=== PATIENT | female | born 1995 | race Caucasian/White ===

== ENCOUNTER 2016-07-25 11:24 | Emergency (ER) | payer BC ==
--- NOTE | 2016-07-25 11:47 | EDM.PDOC ---
ED HPI GENERAL MEDICAL PROBLEM - General Chief Complaint: General Stated Complaint: ABDOMINAL PAIN, AND DIZZINESS Time Seen by Provider: 07/25/16 11:46 Source of Information: Reports: Patient History Limitations: Reports: No Limitations - History of Present Illness INITIAL COMMENTS - FREE TEXT/NARRATIVE: History of present illness: [20-year-old female coming in complaining of dizziness, abdominal cramping. Patient indicates that she is approximately 12 weeks and has had no workup. Patient states she has more discharge but has no bleeding.] Review of systems: As per history of present illness and below otherwise all systems reviewed and negative. Past medical history: As per history of present illness and as reviewed below otherwise noncontributory. Surgical history: As per history of present illness and as reviewed below otherwise noncontributory. Social history: No reported history of drug or alcohol abuse. Family history: As per history of present illness and as reviewed below otherwise noncontributory. Physical exam: HEENT: Atraumatic, normocephalic, pupils reactive, negative for conjunctival pallor or scleral icterus, mucous membranes moist, throat clear, neck supple, nontender, trachea midline. Lungs: Clear to auscultation, breath sounds equal bilaterally, chest nontender. Heart: S1S2, regular, negative for clicks, rubs, or JVD. Abdomen: Soft, nondistended, nontender. Negative for masses or hepatosplenomegaly. Negative for costovertebral tenderness. Pelvis: Stable nontender. Genitourinary: Deferred. Rectal: Deferred. Extremities: Atraumatic, negative for cords or calf pain. Neurovascular unremarkable. Neuro: Awake, alert, oriented. Cranial nerves II through XII unremarkable. Cerebellum unremarkable. Motor and sensory unremarkable throughout. Exam nonfocal. Patient's Global assessment is benign save as noted in the history of present illness Diagnostics: [] Therapeutics: [] Impression: [First trimester , dizziness] Plan: [Rest follow up with [employer]ERCIAL TE[employer]ER] Definitive disposition and diagnosis as appropriate pending reevaluation and review of above. Lower Pelvic Pain Score (Numeric/FACES): 8 - Related Data Allergies Allergy/AdvReac Type Severity Reaction Status Date / Time No Known Allergies Allergy Verified 07/25/16 11:34 Home Meds: Home Meds . [No Known Home Meds] 01/23/16 [History] Past Medical History - Past Health History Medical/Surgical History: Denies Medical/Surgical History Neurological History: Reports: Migraines Other Neuro History: Pt states hx migraines x1 year - Infectious Disease History Infectious Disease History: Reports: Chicken Pox, Shingles - Past Surgical History HEENT Surgical History: Reports: Tonsillectomy Social & Family History - Family History Family Medical History: Noncontributory - Tobacco Use Smoking Status *Q: Never Smoker - Caffeine Use Caffeine Use: Reports: None - Recreational Drug Use Recreational Drug Use: Yes Drug Use in Last 12 Months: Yes Recreational Drug Type: Reports: Other (see below) Other Recreational Drug Type: canabis for migraines at night Recreational Drug Use Frequency: Daily ED ROS GENERAL - Review of Systems Review Of Systems: See Below (History of present illness) ED EXAM, GENERAL - Physical Exam Exam: See Below (History of present illness) Course - Vital Signs Last Recorded V/S: Last Vital Signs Temp 36.4 C 07/25/16 11:31 Pulse 97 07/25/16 11:31 Resp 16 07/25/16 11:31 BP 115/70 07/25/16 11:31 Pulse Ox 97 07/25/16 11:31 - Orders/Labs/Meds Orders: Active Orders 24 hr Category Date Time Status OB 1st Tri Sgl 1st Gest [US] Stat Exams 07/25/16 11:47 Taken Labs: Laboratory Tests 07/25/16 07/25/16 07/25/16 Range/Units 11:47 12:00 12:00 WBC 6.71 (4.0-11.0) K/uL RBC 4.29 L (4.30-5.90) M/uL Hgb 12.1 (12.0-16.0) g/dL Hct 36.4 (36.0-46.0) % MCV 84.8 (80.0-98.0) fL MCH 28.2 (27.0-32.0) pg MCHC 33.2 (31.0-37.0) g/dL RDW Std Deviation 40.0 (28.0-62.0) fl RDW Coeff of Toby 13 (11.0-15.0) % Plt Count 219 (150-400) K/uL MPV 10.20 (7.40-12.00) fL Neut % (Auto) 66.4 (48.0-80.0) % Lymph % (Auto) 21.9 (16.0-40.0) % [place] % (Auto) 10.6 (0.0-15.0) % Eos % (Auto) 1.0 (0.0-7.0) % Baso % (Auto) 0.1 (0.0-1.5) % Neut # (Auto) 4.5 (1.4-5.7) K/uL Lymph # (Auto) 1.5 (0.6-2.4) K/uL [place] # (Auto) 0.7 (0.0-0.8) K/uL Eos # (Auto) 0.1 (0.0-0.7) K/uL Baso # (Auto) 0.0 (0.0-0.1) K/uL Nucleated RBC % 0.0 /100WBC Nucleated RBCs # 0 K/uL HCG, Quant 713779.6 mIU/mL Urine Color Urine Appearance Urine pH (5.0-8.0) Ur Specific [place] (1.001-1.035) Urine Protein (NEGATIVE) mg/dL Urine Glucose (UA) (NEGATIVE) mg/dL Urine Ketones (NEGATIVE) mg/dL Urine Occult Blood (NEGATIVE) Urine Nitrite (NEGATIVE) Urine Bilirubin (NEGATIVE) Urine Urobilinogen (<2.0) EU/dL Ur Leukocyte Esterase (NEGATIVE) Urine RBC (0-2/HPF) Urine WBC (0-5/HPF) Ur Epithelial Cells (NONE-FEW) Urine Bacteria (NEGATIVE) Blood Type B POSITIVE 07/25/16 Range/Units 12:00 WBC (4.0-11.0) K/uL RBC (4.30-5.90) M/uL Hgb (12.0-16.0) g/dL Hct (36.0-46.0) % MCV (80.0-98.0) fL MCH (27.0-32.0) pg MCHC (31.0-37.0) g/dL RDW Std Deviation (28.0-62.0) fl RDW Coeff of Toby (11.0-15.0) % Plt Count (150-400) K/uL MPV (7.40-12.00) fL Neut % (Auto) (48.0-80.0) % Lymph % (Auto) (16.0-40.0) % [place] % (Auto) (0.0-15.0) % Eos % (Auto) (0.0-7.0) % Baso % (Auto) (0.0-1.5) % Neut # (Auto) (1.4-5.7) K/uL Lymph # (Auto) (0.6-2.4) K/uL [place] # (Auto) (0.0-0.8) K/uL Eos # (Auto) (0.0-0.7) K/uL Baso # (Auto) (0.0-0.1) K/uL Nucleated RBC % /100WBC Nucleated RBCs # K/uL HCG, Quant mIU/mL Urine Color YELLOW Urine Appearance CLEAR Urine pH 6.0 (5.0-8.0) Ur Specific [place] 1.015 (1.001-1.035) Urine Protein NEGATIVE (NEGATIVE) mg/dL Urine Glucose (UA) NEGATIVE (NEGATIVE) mg/dL Urine Ketones NEGATIVE (NEGATIVE) mg/dL Urine Occult Blood NEGATIVE (NEGATIVE) Urine Nitrite NEGATIVE (NEGATIVE) Urine Bilirubin NEGATIVE (NEGATIVE) Urine Urobilinogen 0.2 (<2.0) EU/dL Ur Leukocyte Esterase NEGATIVE (NEGATIVE) Urine RBC 0-2 (0-2/HPF) Urine WBC 02 (0-5/HPF) Ur Epithelial Cells MODERATE (NONE-FEW) Urine Bacteria FEW (NEGATIVE) Blood Type Meds: Medications Discontinued Medications Generic Name Dose Route Start Last Admin Trade Name Freq PRN Reason Stop Dose Admin Sodium Chloride 1,000 mls @ 999 mls/hr 07/25/16 11:49 07/25/16 11:56 Normal Saline IV 07/25/16 12:49 999 mls/hr STAT ONE Administration Departure - Departure Time of Disposition: 13:20 Disposition: Home, Self-Care 01 Condition: Good Clinical Impression: Dizziness - Discharge Information Forms: ED Department Discharge Additional Instructions: The following information is given to patients seen in the emergency department who are being discharged to home. This information is to outline your options for follow-up care. We provide all patients seen in our emergency department with a follow-up referral. The need for follow-up, as well as the timing and circumstances, are variable depending upon the specifics of your emergency department visit. If you don't have a primary care physician on staff, we will provide you with a referral. We always advise you to contact your personal physician following an emergency department visit to inform them of the circumstance of the visit and for follow-up with them and/or the need for any referrals to a consulting specialist. The emergency department will also refer you to a specialist when appropriate. This referral assures that you have the opportunity for follow-up care with a specialist. All of these measure are taken in an effort to provide you with optimal care, which includes your follow-up. Under all circumstances we always encourage you to contact your private physician who remains a resource for coordinating your care. When calling for follow-up care, please make the office aware that this follow-up is from your recent emergency room visit. If for any reason you are refused follow-up, please contact the [facility] Emergency Department at and asked to speak to the emergency department charge nurse. Take it easy until further evaluation by [employer]ER[employer] TE[employer]ER Return to ED as needed as discussed - My Orders Last 24 Hours: My Active Orders 07/25/16 11:47 OB 1st Tri Sgl 1st Gest [US] Stat - Assessment/Plan Last 24 Hours: My Active Orders 07/25/16 11:47 OB 1st Tri Sgl 1st Gest [US] Stat
[2016-07-25] MEDS ORDERED: Sodium Chloride 0.9% 1,000 ML IV ONE (11:49)
[2016-07-25 13:36] VITALS: BP 127/70
--- NOTE | 2016-07-26 13:25 | US ---
EXAM DATE: 07/25/16 PATIENT'S AGE: 20 Patient: RENETTA BORREGO Facility: [place], [place] Site . Site : 1995 Study: US OB Pelvis [id number] 12:21:47 PM Ordering Physician: Doctor Salmeron Final Report: INDICATION: 1st trimester with cramping. TECHNIQUE: Ultrasound OB pelvis transabdominal. Real-time wade-scale imaging of the pelvis was performed. COMPARISON: None FINDINGS: Sonographic imaging demonstrates a single living intrauterine gestation. The embryo demonstrates a regular cardiac rate measuring 170 beats per minute. The embryo`s crown rump length measurement of 2.64 cm corresponds to a gestational age of 8 weeks 6 days with a sonographic due date of February 28, 2017. There is a normal appearing yolk sac. There are no gross abnormalities noted within the embryo at this early state of development. The placenta has not yet developed. There is no sign of perigestational hemorrhage. The ovaries are of normal size. There are no suspicious fluid collections noted in the cul-de-sac. IMPRESSION: Single viable intrauterine . No abnormalities seen. Dictated by Danial Baron MD @ 07/25/2016 1:11:52 PM Dictated by: Danial Baron MD @ 07/25/2016 13:11:59 (Electronic Signature) Report Signed by Proxy. RACHID
== END 2016-07-25 13:32 | disposition home or self-care (01) ==
LOC: MW.ED 11:24
DX: O99.89 Other specified diseases and conditions complicating pregnancy, childbirth and the puerperium (principal); R42 Dizziness and giddiness; R10.2 Pelvic and perineal pain; Z3A.12 12 weeks gestation of pregnancy; Z98.890 Other specified postprocedural states
CPT/HCPCS: 36415; 76801; 81001; 84702; 85025; 86900; 86901; 96360; 99284; J7040; 99283

== ENCOUNTER 2017-03-04 01:17 | Inpatient (IN) | payer BC ==
[2017-03-04] MEDS ORDERED: Carboprost Tromethamine 250 MCG/1 ML Amp IM PRN (01:41)
[2017-03-04] MEDS ORDERED: Butorphanol 1 MG/ML SDV IVPUSH PRN (01:41)
[2017-03-04] MEDS ORDERED: Methylergonovine 0.2 MG/1 ML Amp IM PRN (01:41)
[2017-03-04] MEDS ORDERED: Nalbuphine 10 MG/1 ML Vial IVPUSH PRN ×2 (01:41→20:21)
[2017-03-04] MEDS ORDERED: Misoprostol 200 MCG Tab PO PRN (01:41)
[2017-03-04] MEDS ORDERED: Sodium Chloride 0.9% 2.5 ML Syringe FLUSH PRN (01:41)
[2017-03-04] MEDS ORDERED: Sodium Chloride 0.9% 10 ML Syringe FLUSH PRN (01:41)
[2017-03-04] MEDS ORDERED: Water For Irrigation,Sterile 1,000 ML Container IRR PRN (01:41)
[2017-03-04] MEDS ORDERED: Terbutaline 1 MG/ML SDV SUBCUT PRN (01:41)
[2017-03-04] MEDS ORDERED: Lidocaine 1% 50 ML MDV INJECT PRN (01:41)
[2017-03-04] MEDS ORDERED: Oxytocin/0.9 % Sodium Chloride 30 UNIT/500 ML BAG IV SCH (01:45)
[2017-03-04] MEDS ORDERED: Misoprostol 25 MCG (1/4 of 100 MCG) Tab VAG SCH (02:30)
[2017-03-04] MEDS ORDERED: Misoprostol 25 MCG (1/4 of 100 MCG) Tab PO SCH (02:30)
[2017-03-04] MEDS ORDERED: Ropivacaine 0.2% 2 MG/ML 20 ML SDV ONE (04:58)
[2017-03-04] MEDS ORDERED: Ropivacaine 0 ML ONE (04:59)
--- NOTE | 2017-03-04 05:19 | PCM.LDHP ---
L&D History of Present Illness - General Date of Service: 03/04/17 Admit Problem/Dx: Patient Status Order with Admit Dx/Problem 03/04/17 01:41 Patient Status [ADT] Routine Admission Diagnosis/Problem Admission Diagnosis/Problem Source of Information: Patient History Limitations: Reports: No Limitations - History of Present Illness Improves with: Reports: None Worsens with: Reports: None Associated Symptoms: Reports: N - Related Data Allergies/Adverse Reactions: Allergies Allergy/AdvReac Type Severity Reaction Status Date / Time No Known Allergies Allergy Verified 03/04/17 01:40 Home Medications: Home Meds PNV95/Ferrous Fumarate/FA [ Tablet] 03/04/17 [History] Past Medical History - Past Health History Medical/Surgical History: Denies Medical/Surgical History HEENT History: Reports: None Gastrointestinal History: Reports: Other (See Below) Other Gastrointestinal History: acid reflux [employer] History: Reports: Neurological History: Reports: Migraines Other Neuro History: Pt states hx migraines x1 year - Infectious Disease History Infectious Disease History: Reports: Chicken Pox, Shingles - Past Surgical History HEENT Surgical History: Reports: Oral Surgery, Tonsillectomy Other HEENT Surgeries/Procedures: wisdom teeth extraction GI Surgical History: Reports: None Neurological Surgical History: Reports: None Social & Family History - Family History Family Medical History: Noncontributory OBGYN: Reports: Neurological: Reports: CVA Oncologic: Reports: Ovarian - Tobacco Use Smoking Status *Q: Never Smoker - Caffeine Use Caffeine Use: Reports: None - Recreational Drug Use Recreational Drug Use: No Drug Use in Last 12 Months: Yes Recreational Drug Type: Reports: Other (see below) Other Recreational Drug Type: canabis for migraines at night Recreational Drug Use Frequency: Daily H&P Review of Systems - Review of Systems: Review Of Systems: See Below General: Reports: No Symptoms HEENT: Reports: No Symptoms Pulmonary: Reports: No Symptoms Cardiovascular: Reports: No Symptoms Gastrointestinal: Reports: No Symptoms Genitourinary: Reports: No Symptoms Musculoskeletal: Reports: No Symptoms Skin: Reports: No Symptoms Psychiatric: Reports: No Symptoms Neurological: Reports: No Symptoms Hematologic/Lymphatic: Reports: No Symptoms Immunologic: Reports: No Symptoms L&D Exam - Exam Exam: See Below - Vital Signs Weight: 69.853 kg - OB Specific Fundal Height In cm: 36 Contraction Intensity: Mild Heart Tones: Present Presentation: Vertex - Del Cid Score Del Cid Score Cervix Position: Anterior Del Cid Score Consistency: Soft Del Cid Score Effacement: 51-70% Del Cid Score Dilation: 1-2 cm Del Cid Score 's Station: -1 ,0 Del Cid Score Total: 9 - Exam General: Alert, Oriented HEENT: PERRLA, Conjunctiva Clear, EACs Clear, EOMI, Hearing Intact, Mucosa Moist & [place], Nares Patent, Normal Nasal Septum, Posterior Pharynx Clear, TMs Clear Neck: Supple, Trachea Midline Lungs: Clear to Auscultation, Normal Respiratory Effort Cardiovascular: Regular Rate, Regular Rhythm GI/Abdominal Exam: Normal Bowel Sounds, Soft, Non-Tender, No Organomegaly, No Distention, No Abnormal Bruit, No Mass, Pelvis Stable Rectal Exam: Normal Exam, Normal Rectal Tone Genitourinary: Normal external exam, Normal bimanual exam, Normal speculum exam Back Exam: Normal Inspection, Full Range of Motion Extremities: Normal Inspection, Normal Range of Motion, Non-Tender, No Pedal Edema, Normal Capillary Refill Skin: Warm, Dry, Intact Neurological: Cranial Nerves Intact, Reflexes Equal Bilateral Psychiatric: Alert, Normal Affect, Normal Mood - Patient Data Lab Results Last 24 hrs: Laboratory Results - last 24 hr 03/04/17 03/04/17 Range/Units 01:56 01:56 WBC 9.07 (4.0-11.0) K/uL RBC 4.08 L (4.30-5.90) M/uL Hgb 11.5 L (12.0-16.0) g/dL Hct 34.9 L (36.0-46.0) % MCV 85.5 (80.0-98.0) fL MCH 28.2 (27.0-32.0) pg MCHC 33.0 (31.0-37.0) g/dL RDW Std Deviation 47.2 (28.0-62.0) fl RDW Coeff of Toby 15 (11.0-15.0) % Plt Count 220 (150-400) K/uL MPV 11.10 (7.40-12.00) fL Nucleated RBC % 0.0 /100WBC Nucleated RBCs # 0 K/uL Blood Type B POSITIVE Antibody Screen NEGATIVE Result Diagrams: 03/04/17 01:56 Problem List Initiated/Reviewed/Updated: Yes Orders Last 24hrs: Active Orders 24 hr Category Date Time Status Patient Status [ADT] Routine ADT 03/04/17 01:41 Active Bedrest Bathroom Privileges [RC] ASDIRECTED Care 03/04/17 01:41 Active Communication Order [RC] ASDIRECTED Care 03/04/17 01:41 Active Communication Order [RC] ASDIRECTED Care 03/04/17 01:41 Active Communication Order [RC] ASDIRECTED Care 03/04/17 01:41 Active Heart Tones [RC] CONTINUOUS Care 03/04/17 01:41 Active Non Stress Test [RC] PER UNIT ROUTINE Care 03/04/17 01:41 Active May Shower [RC] ASDIRECTED Care 03/04/17 01:41 Active Notify Provider [RC] PRN Care 03/04/17 01:41 Active Notify Provider [RC] PRN Care 03/04/17 01:41 Active Notify Provider [RC] PRN Care 03/04/17 01:41 Active Notify Provider [RC] STAT Care 03/04/17 01:41 Active Oxygen Therapy [RC] ASDIRECTED Care 03/04/17 01:41 Active Up ad Ludy [RC] ASDIRECTED Care 03/04/17 01:41 Active Vaginal Exam [RC] PRN Care 03/04/17 01:41 Active Vaginal Exam [RC] PRN Care 03/04/17 01:41 Active Vital Signs [RC] PER UNIT ROUTINE Care 03/04/17 01:41 Active Vital Signs [RC] PER UNIT ROUTINE Care 03/04/17 01:41 Active Clear Liquid Diet [DIET] Diet 03/04/17 Breakfast Active Butorphanol [Stadol] Med 03/04/17 01:41 Active 1 mg IVPUSH Q1H PRN Carboprost Tromethamine [Hemabate DS] Med 03/04/17 01:41 Active 250 mcg IM ASDIRECTED PRN Lactated Ringers [Ringers, Lactated] 1,000 ml Med 03/04/17 01:45 Active IV ASDIRECTED Lidocaine 1% [Xylocaine 1%] Med 03/04/17 01:41 Active 50 ml INJECT .ONCE PRN Methylergonovine [Methergine] Med 03/04/17 01:41 Active 0.2 mg IM ASDIRECTED PRN Misoprostol [Cytotec] Med 03/04/17 01:41 Active 200 mcg PO .ONCE PRN Misoprostol [Cytotec] Med 03/04/17 02:30 Active 25 mcg PO .ONCE Misoprostol [Cytotec] Med 03/04/17 06:30 Active 25 mcg PO Q4H PRN Misoprostol [Cytotec] Med 03/04/17 02:30 Active 25 mcg VAG .ONCE Misoprostol [Cytotec] Med 03/04/17 06:30 Active 25 mcg VAG Q4H PRN Nalbuphine [Nubain] Med 03/04/17 01:41 Active 10 mg IVPUSH Q1H PRN Oxytocin/0.9 % Sodium Chloride [Oxytocin 30 Unit/500 ML Med 03/04/17 01:45 Active -NS] 30 unit in 500 ml IV TITRATE Sodium Chloride 0.9% [Saline Flush] Med 03/04/17 01:41 Active 10 ml FLUSH ASDIRECTED PRN Sodium Chloride 0.9% [Saline Flush] Med 03/04/17 01:41 Active 2.5 ml FLUSH ASDIRECTED PRN Terbutaline [Brethine] Med 03/04/17 01:41 Active 0.25 mg SUBCUT ASDIRECTED PRN Water For Irrigation,Sterile [Sterile Water for Med 03/04/17 01:41 Active Irrigation] 1,000 ml IRR ASDIRECTED PRN Scalp Electrode [WOMSER] Per Unit Routine Oth 03/04/17 01:41 Ordered Medication Administration Instruction [OM.PC] Q3H Oth 03/04/17 01:45 Ordered Peripheral IV Insertion Adult [OM.PC] Routine Oth 03/04/17 01:41 Ordered Resuscitation Status Routine Resus Stat 03/04/17 01:41 Ordered Medication Orders Butorphanol Tartrate (Stadol) 1 mg IVPUSH Q1H PRN PRN Reason: Pain Carboprost Tromethamine (Hemabate Ds) 250 mcg IM ASDIRECTED PRN PRN Reason: Post Hemorrhage Lactated Ringer's (Ringers, Lactated) 1,000 mls @ 150 mls/hr IV ASDIRECTED DANAE Oxytocin/Sodium Chloride (Oxytocin 30 Unit/500 Ml-Ns) 30 unit in 500 mls @ 999 mls/hr IV TITRATE DANAE Lidocaine HCl (Xylocaine 1%) 50 ml INJECT .ONCE PRN PRN Reason: Laceration repair Methylergonovine Maleate (Methergine) 0.2 mg IM ASDIRECTED PRN PRN Reason: Post Hemorrhage Misoprostol (Cytotec) 200 mcg PO .ONCE PRN PRN Reason: Post Hemorrhage Misoprostol (Cytotec) 25 mcg VAG .ONCE [facility] Last Admin: 03/04/17 02:25 Dose: 25 mcg Misoprostol (Cytotec) 25 mcg VAG Q4H PRN PRN Reason: Cervical Ripening Misoprostol (Cytotec) 25 mcg PO .ONCE [facility] Last Admin: 03/04/17 02:25 Dose: 25 mcg Misoprostol (Cytotec) 25 mcg PO Q4H PRN PRN Reason: Cervical Ripening Nalbuphine HCl (Nubain) 10 mg IVPUSH Q1H PRN PRN Reason: Pain (severe 7-10) Sodium Chloride (Saline Flush) 10 ml FLUSH ASDIRECTED PRN PRN Reason: Keep Vein Open Sodium Chloride (Saline Flush) 2.5 ml FLUSH ASDIRECTED PRN PRN Reason: Keep Vein Open Sterile Water (Sterile Water For Irrigation) 1,000 ml IRR ASDIRECTED PRN PRN Reason: delivery Terbutaline Sulfate (Brethine) 0.25 mg SUBCUT ASDIRECTED PRN PRN Reason: Tacysystole Assessment/Plan Comment:: Term admitted for elective induction.
[2017-03-04] MEDS ORDERED: Misoprostol 25 MCG (1/4 of 100 MCG) Tab PO PRN (06:30)
[2017-03-04] MEDS ORDERED: Misoprostol 25 MCG (1/4 of 100 MCG) Tab VAG PRN (06:30)
[2017-03-04] MEDS: Lactated Ringers 1,000 ML IV SCH ×4 (09:50→22:15)
--- NOTE | 2017-03-04 10:05 | PCM.PREANE ---
Preanesthetic Assessment - Anesthesia/Transfusion/Family Hx Anesthesia History: Prior Anesthesia Without Reaction Transfusion History: No Prior Transfusion(s) - Review of Systems General: No Symptoms Pulmonary: No Symptoms Cardiovascular: No Symptoms Gastrointestinal: No Symptoms Neurological: No Symptoms Other: Reports: None - Physical Assessment Height: 4 ft 10 in Weight: 69.853 kg ASA Class: 2 Mental Status: Alert & Oriented x3 Airway Class: Mallampati = 2 Dentition: Reports: Normal Dentition Thyro-Mental Finger Breadths: 3 Mouth Opening Finger Breadths: 3 ROM/Head Extension: Full Lungs: Clear to Auscultation, Normal Respiratory Effort Cardiovascular: Regular Rate, Regular Rhythm - Lab Values: Laboratory Last Values WBC 9.07 K/uL (4.0-11.0) 03/04/17 01:56 RBC 4.08 M/uL (4.30-5.90) L 03/04/17 01:56 Hgb 11.5 g/dL (12.0-16.0) L 03/04/17 01:56 Hct 34.9 % (36.0-46.0) L 03/04/17 01:56 MCV 85.5 fL (80.0-98.0) 03/04/17 01:56 MCH 28.2 pg (27.0-32.0) 03/04/17 01:56 MCHC 33.0 g/dL (31.0-37.0) 03/04/17 01:56 RDW Std Deviation 47.2 fl (28.0-62.0) 03/04/17 01:56 RDW Coeff of Toby 15 % (11.0-15.0) 03/04/17 01:56 Plt Count 220 K/uL (150-400) 03/04/17 01:56 MPV 11.10 fL (7.40-12.00) 03/04/17 01:56 Nucleated RBC % 0.0 /100WBC 03/04/17 01:56 Nucleated RBCs # 0 K/uL 03/04/17 01:56 Membrane Rupture POSITIVE 03/04/17 08:00 Blood Type B POSITIVE 03/04/17 01:56 Antibody Screen NEGATIVE 03/04/17 01:56 - Allergies Allergies/Adverse Reactions: Allergies Allergy/AdvReac Type Severity Reaction Status Date / Time No Known Allergies Allergy Verified 03/04/17 01:40 - Acknowledgements Anesthesia Type Planned: Epidural Pt an Appropriate Candidate for the Planned Anesthesia: Yes Alternatives and Risks of Anesthesia Discussed w Pt/Guardian: Yes Pt/Guardian Understands and Agrees with Anesthesia Plan: Yes PreAnesthesia Questionnaire - Past Health History Medical/Surgical History: Denies Medical/Surgical History HEENT History: Reports: None Cardiovascular History: Reports: None Respiratory History: Reports: None Gastrointestinal History: Reports: Other (See Below) Other Gastrointestinal History: acid reflux Genitourinary History: Reports: None [employer]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: : 1 Para: 0 LMP (Approximate): Musculoskeletal History: Reports: None Neurological History: Reports: Migraines Other Neuro History: Pt states hx migraines x1 year Psychiatric History: Reports: None Endocrine/Metabolic History: Reports: Obesity/BMI 30+ Hematologic History: Reports: None Immunologic History: Reports: None Oncologic (Cancer) History: Reports: None Dermatologic History: Reports: None - Infectious Disease History Infectious Disease History: Reports: Chicken Pox, Shingles - Past Surgical History HEENT Surgical History: Reports: Oral Surgery, Tonsillectomy Other HEENT Surgeries/Procedures: wisdom teeth extraction GI Surgical History: Reports: None Neurological Surgical History: Reports: None - SUBSTANCE USE Smoking Status *Q: Never Smoker Recreational Drug Use History: No Recreational Drug Type: Reports: Other (see below) - HOME MEDS Home Medications: Home Meds PNV95/Ferrous Fumarate/FA [ Tablet] 03/04/17 [History] - CURRENT (IN HOUSE) MEDS Current Meds: Current Medications Butorphanol Tartrate (Stadol) 1 mg IVPUSH Q1H PRN PRN Reason: Pain Last Admin: 03/04/17 08:22 Dose: 1 mg Carboprost Tromethamine (Hemabate Ds) 250 mcg IM ASDIRECTED PRN PRN Reason: Post Hemorrhage Lactated Ringer's (Ringers, Lactated) 1,000 mls @ 150 mls/hr IV ASDIRECTED DANAE Oxytocin/Sodium Chloride (Oxytocin 30 Unit/500 Ml-Ns) 30 unit in 500 mls @ 999 mls/hr IV TITRATE DANAE Lidocaine HCl (Xylocaine 1%) 50 ml INJECT .ONCE PRN PRN Reason: Laceration repair Methylergonovine Maleate (Methergine) 0.2 mg IM ASDIRECTED PRN PRN Reason: Post Hemorrhage Misoprostol (Cytotec) 200 mcg PO .ONCE PRN PRN Reason: Post Hemorrhage Misoprostol (Cytotec) 25 mcg VAG .ONCE DANAE Last Admin: 03/04/17 02:25 Dose: 25 mcg Misoprostol (Cytotec) 25 mcg VAG Q4H PRN PRN Reason: Cervical Ripening Last Admin: 03/04/17 06:34 Dose: 25 mcg Misoprostol (Cytotec) 25 mcg PO .ONCE DANAE Last Admin: 03/04/17 02:25 Dose: 25 mcg Misoprostol (Cytotec) 25 mcg PO Q4H PRN PRN Reason: Cervical Ripening Last Admin: 03/04/17 06:34 Dose: 25 mcg Nalbuphine HCl (Nubain) 10 mg IVPUSH Q1H PRN PRN Reason: Pain (severe 7-10) Sodium Chloride (Saline Flush) 10 ml FLUSH ASDIRECTED PRN PRN Reason: Keep Vein Open Sodium Chloride (Saline Flush) 2.5 ml FLUSH ASDIRECTED PRN PRN Reason: Keep Vein Open Sterile Water (Sterile Water For Irrigation) 1,000 ml IRR ASDIRECTED PRN PRN Reason: delivery Terbutaline Sulfate (Brethine) 0.25 mg SUBCUT ASDIRECTED PRN PRN Reason: Tacysystole Discontinued Medications Ropivacaine (Naropin 0.2%) Confirm Administered Dose 100 mls @ as directed .ROUTE .[place]vie [place]ises ONE Stop: 03/04/17 05:00 Last Admin: 03/04/17 06:09 Dose: Not Given Ropivacaine (Naropin 0.2%) Confirm Administered Dose 20 ml .ROUTE .STK-MED ONE Stop: 03/04/17 04:59 Last Admin: 03/04/17 06:09 Dose: Not Given
[2017-03-04] MEDS ORDERED: Ropivacaine 100 ML ONE ×2 (10:07→15:59)
[2017-03-04] MEDS ORDERED: fentaNYL 100 MCG/2 ML SDV ONE (16:01)
[2017-03-04] MEDS ORDERED: ceFAZolin 1 GM in Premix Bag 1 BAG IV ONE (19:16)
[2017-03-04] MEDS ORDERED: Citric Acid/Sodium Citrate Solution 30 ML Cup ONE (19:18)
[2017-03-04] MEDS ORDERED: Bupivacaine 0.5% 10 ML SDV ONE (19:28)
[2017-03-04] MEDS ORDERED: Citric Acid/Sodium Citrate Solution 30 ML Cup PO SCH (19:30)
[2017-03-04] MEDS ORDERED: Lactated Ringers 1,000 ML IV SCH (19:30)
[2017-03-04] MEDS ORDERED: Lidocaine 2% 5 ML SDV ONE (19:33)
[2017-03-04] MEDS ORDERED: Propofol 200 MG/20 ML SDV ONE ×2 (19:33→21:49)
[2017-03-04] MEDS ORDERED: Succinylcholine/Normal Saline 200 MG/10 ML Syringe ONE (19:33)
[2017-03-04] MEDS ORDERED: Oxytocin 10 Units/1 ML SDV ONE (19:33)
[2017-03-04] MEDS ORDERED: ePHEDrine 50 MG/ML SDV ONE (19:33)
[2017-03-04] MEDS ORDERED: Sodium Chloride 0.9% 20 ML ONE ×2 (19:36→19:40)
[2017-03-04] MEDS ORDERED: ceFAZolin 1 GM Vial ONE (19:36)
[2017-03-04] MEDS ORDERED: Morphine PF 1 MG/ML Amp ONE (19:39)
[2017-03-04] MEDS ORDERED: Nalbuphine 10 MG/1 ML Vial ONE (19:39)
[2017-03-04] MEDS ORDERED: Ketorolac 30 MG/ML SDV ONE (19:51)
[2017-03-04] MEDS ORDERED: Ondansetron 4 MG/2 ML SDV ONE (19:51)
[2017-03-04] MEDS ORDERED: Octyl 2-Cyanoacrylate 1 Tube ONE (20:12)
[2017-03-04] MEDS ORDERED: Ondansetron 4 MG/2 ML SDV IVPUSH PRN (20:21)
[2017-03-04] MEDS ORDERED: Naloxone 0.4 MG/ML Syringe IVPUSH PRN (20:21)
[2017-03-04] MEDS ORDERED: diphenhydrAMINE 50 MG/ML SDV IVPUSH PRN (20:21)
[2017-03-04] MEDS ORDERED: fentaNYL 100 MCG/2 ML SDV IVPUSH PRN (20:21)
[2017-03-04] MEDS ORDERED: Bisacodyl 10 MG Supp RECTAL PRN (20:21)
[2017-03-04] MEDS ORDERED: Lanolin 100% Cream 7 GM Tube TOP PRN (20:21)
[2017-03-04] MEDS ORDERED: Acetaminophen/oxyCODONE 325-5 MG Tab PO PRN (20:21)
--- NOTE | 2017-03-04 20:25 | PCM.OPNOTE ---
- General Post-Op/Procedure Note Date of Surgery/Procedure: 03/04/17 Operative Procedure(s): Primary C/Section Pre Op Diagnosis: [id number]+ faild induction Faild vacum Post-Op Diagnosis: Same Anesthesia Technique: Epidural Primary Surgeon: Rafa Silvestre EBL in mLs: 900 Complications: None Condition: Good
--- NOTE | 2017-03-04 21:41 | PCM.POSTAN ---
POST ANESTHESIA ASSESSMENT - MENTAL STATUS Mental Status: Alert, Oriented - RESPIRATORY Respiratory Status: Respiratory Rate WNL, Airway Patent, O2 Saturation Stable - CARDIOVASCULAR CV Status: Pulse Rate WNL, Blood Pressure Stable - GASTROINTESTINAL GI Status: No Symptoms - POST OP HYDRATION Hydration Status: Adequate & Stable
[2017-03-05] MEDS: diphenhydrAMINE 50 MG/ML SDV IVPUSH PRN ×2 (00:41→08:31)
[2017-03-05] MEDS: Ketorolac 30 MG/ML SDV IVPUSH SCH ×4 (03:01→21:12)
--- NOTE | 2017-03-05 05:04 | OR ---
SURGEON: Rafa Silvestre MD DATE OF PROCEDURE: PREOPERATIVE DIAGNOSES: Intrauterine , 40 weeks plus, induction of labor, failed vacuum extraction. POSTOPERATIVE DIAGNOSES: Intrauterine , 40 weeks plus, induction of labor, failed vacuum extraction. OPERATION PERFORMED: Primary low transverse section. BOOT LINER MAKER: OR tech. ANESTHESIA: Epidural, Jovanny De Souza. ESTIMATED BLOOD LOSS: 900 to a 1000 mL. COMPLICATIONS: None. FINDINGS: Male fetus, score reported to be 8 and 9. MOTHERCRAFT NURSE: Dr. Kaye. INDICATIONS FOR SURGERY: This patient is 40 weeks plus, she is admitted for induction, she is induced with Cytotec, she responded to it, and then she needed Pitocin. She had epidural anesthesia for labor analgesia. The patient progressed to complete, complete, vertex 0 to +1. She started having some late deceleration with a contraction. I came to evaluate the patient. I tried to do a vacuum extraction, but the fetus was stuck in occiput transverse, I could not rotate it, and I could not deliver it safely vaginally; so, a decision was made to do a primary low transverse section. PROCEDURE IN DETAIL: The patient was brought to the OR, properly identified, after adequate level of anesthesia, with a Cotter catheter in the bladder, the patient was prepped and draped in sterile fashion as usual. Low transverse Pfannenstiel skin incision was done. Robert's fascia and rectus fascia were opened in direction of the incision. The 2 recti muscles were and peritoneal cavity was entered. Bladder flap was raised in the usual manner pushing the bladder away from the lower uterine segment. Low transverse uterine incision was done extending manually and fetus was delivered, it cried immediately, handed to the tour director Dr. Kaye who was present at the time of delivery. Later on, the score reported to be 8 and 9 and the weight is not available. The placenta delivered spontaneous complete and intact and repair of the lower uterine segment done with 2-0 Vicryl continuous interlocking in 2 layers. Reperitonealization done with 3-0 Vicryl continuous and then the peritoneal cavity evacuated completely from all blood and blood clot. Inspection of the operative field shows no oozing, no bleeding. We proceeded to close the vagina and the peritoneum with 3-0 Vicryl continuous, the rectus fascia was closed with #1 PDS double strand continuous, the Robert's fascia with 3-0 Vicryl continuous, the skin closed with skin clips, Insorb, and Dermabond. Instrument and sponge count was correct. The patient tolerated the procedure well and went to recovery room in stable general condition. TY KRAFT /[id number]
[2017-03-05] MEDS: Lactated Ringers 1,000 ML IV SCH (06:35)
--- NOTE | 2017-03-05 08:16 | PCM48HPAN ---
Post Anesthesia Note - EVALUATION WITHIN 48HRS OF ANESTHETIC Vital Signs in Normal Range: Yes Patient Participated in Evaluation: Yes Respiratory Function Stable: Yes Airway Patent: Yes Cardiovascular Function Stable: Yes Hydration Status Stable: Yes Pain Control Satisfactory: Yes Nausea and Vomiting Control Satisfactory: Yes Mental Status Recovered: Yes
[2017-03-05] MEDS: Docusate Sodium 100 MG Cap PO SCH ×2 (09:14→21:13)
--- NOTE | 2017-03-05 10:58 | PCM.PNPP ---
- General Info Date of Service: 03/05/17 Functional Status: Reports: Pain Controlled - Review of Systems General: Reports: No Symptoms HEENT: Reports: No Symptoms Pulmonary: Reports: No Symptoms Cardiovascular: Reports: No Symptoms Gastrointestinal: Reports: No Symptoms Genitourinary: Reports: No Symptoms Musculoskeletal: Reports: No Symptoms Skin: Reports: No Symptoms Neurological: Reports: No Symptoms Psychiatric: Reports: No Symptoms - General Info Date of Service: 03/05/17 - Patient Data Vital Signs - Most Recent: Last Vital Signs Temp 36.6 C 03/05/17 08:00 Pulse 100 03/05/17 09:00 Resp 18 03/05/17 09:00 BP 109/71 03/05/17 08:00 Pulse Ox 97 03/05/17 09:00 Weight - Most Recent: 69.853 kg I&O - Last 24 Hours: Intake & Output 03/04/17 03/05/17 03/05/17 22:59 06:59 14:59 Intake Total 500 500 Output Total 190 425 Balance 310 75 Lab Results - Last 24 Hours: Laboratory Results - last 24 hr 03/05/17 Range/Units 04:31 Hgb 9.0 L (12.0-16.0) g/dL Hct 27.5 L (36.0-46.0) % Med Orders - Current: Current Medications Bisacodyl (Dulcolax) 10 mg RECTAL .ONCE PRN PRN Reason: Constipation Butorphanol Tartrate (Stadol) 1 mg IVPUSH Q1H PRN PRN Reason: Pain Last Admin: 03/04/17 08:22 Dose: 1 mg Carboprost Tromethamine (Hemabate Ds) 250 mcg IM ASDIRECTED PRN PRN Reason: Post Hemorrhage Citric Acid/Sodium Citrate (Bicitra Solution) 30 ml PO .ONCE DANAE Last Admin: 03/04/17 19:27 Dose: 30 ml Diphenhydramine HCl (Benadryl) 25 mg IVPUSH Q4H PRN PRN Reason: Itching Stop: 03/05/17 20:21 Last Admin: 03/05/17 08:31 Dose: 25 mg Diphenhydramine HCl (Benadryl) 25 mg IVPUSH Q6H PRN PRN Reason: Itching or Nausea Docusate Sodium (Colace) 100 mg PO BID DANAE Last Admin: 03/05/17 09:14 Dose: 100 mg Emollient Ointment (Lansinoh Hpa) 0 gm TOP ASDIRECTED PRN PRN Reason: Sore Nipples Fentanyl (Sublimaze) 50 mcg IVPUSH Q45M PRN PRN Reason: Pain (severe 7-10) Stop: 03/05/17 20:22 Lactated Ringer's (Ringers, Lactated) 1,000 mls @ 150 mls/hr IV ASDIRECTED [facility] Last Admin: 03/04/17 15:27 Dose: 150 mls/hr Oxytocin/Sodium Chloride (Oxytocin 30 Unit/500 Ml-Ns) 30 unit in 500 mls @ 999 mls/hr IV TITRATE [facility] Lactated Ringer's (Ringers, Lactated) 1,000 mls @ 500 mls/hr IV .BOLUS [facility] Lactated Ringer's (Ringers, Lactated) 1,000 mls @ 125 mls/hr IV ASDIRECTED [facility] Last Admin: 03/05/17 06:35 Dose: 125 mls/hr Ibuprofen (Motrin) 800 mg PO Q8H PRN PRN Reason: mild pain or fever Ketorolac Tromethamine (Toradol) 30 mg IVPUSH Q6H [facility] Stop: 03/05/17 20:01 Last Admin: 03/05/17 09:13 Dose: 30 mg Lidocaine HCl (Xylocaine 1%) 50 ml INJECT .ONCE PRN PRN Reason: Laceration repair Methylergonovine Maleate (Methergine) 0.2 mg IM ASDIRECTED PRN PRN Reason: Post Hemorrhage Misoprostol (Cytotec) 200 mcg PO .ONCE PRN PRN Reason: Post Hemorrhage Misoprostol (Cytotec) 25 mcg VAG .ONCE [facility] Last Admin: 03/04/17 02:25 Dose: 25 mcg Misoprostol (Cytotec) 25 mcg VAG Q4H PRN PRN Reason: Cervical Ripening Last Admin: 03/04/17 06:34 Dose: 25 mcg Misoprostol (Cytotec) 25 mcg PO .ONCE [facility] Last Admin: 03/04/17 02:25 Dose: 25 mcg Misoprostol (Cytotec) 25 mcg PO Q4H PRN PRN Reason: Cervical Ripening Last Admin: 03/04/17 06:34 Dose: 25 mcg Nalbuphine HCl (Nubain) 10 mg IVPUSH Q1H PRN PRN Reason: Pain (severe 7-10) Nalbuphine HCl (Nubain) 5 mg IVPUSH Q3H PRN PRN Reason: Pruritis Stop: 03/05/17 20:21 Naloxone HCl (Narcan) 0.1 mg IVPUSH ONETIME PRN PRN Reason: Respiratory Depression Stop: 03/05/17 20:21 Ondansetron HCl (Zofran) 4 mg IVPUSH Q4H PRN PRN Reason: Nausea/Vomiting Oxycodone/Acetaminophen (Percocet 325-5 Mg) 1 tab PO Q4H PRN PRN Reason: Pain (moderate 4-6) Oxycodone/Acetaminophen (Percocet 325-5 Mg) 2 tab PO Q4H PRN PRN Reason: Pain (moderate 4-6) Sodium Chloride (Saline Flush) 10 ml FLUSH ASDIRECTED PRN PRN Reason: Keep Vein Open Sodium Chloride (Saline Flush) 2.5 ml FLUSH ASDIRECTED PRN PRN Reason: Keep Vein Open Sterile Water (Sterile Water For Irrigation) 1,000 ml IRR ASDIRECTED PRN PRN Reason: delivery Terbutaline Sulfate (Brethine) 0.25 mg SUBCUT ASDIRECTED PRN PRN Reason: Tacysystole Discontinued Medications Bupivacaine HCl (Sensorcaine-Mpf 0.5%) Confirm Administered Dose 20 ml .ROUTE .STK-MED ONE Stop: 03/04/17 19:29 Cefazolin Sodium (Ancef) Confirm Administered Dose 2 gm .ROUTE .STK-MED ONE Stop: 03/04/17 19:37 Citric Acid/Sodium Citrate (Bicitra Solution) Confirm Administered Dose 30 ml .ROUTE .STK-MED ONE Stop: 03/04/17 19:19 Ephedrine Sulfate (Ephedrine Sulfate) Confirm Administered Dose 50 mg .ROUTE .STK-MED ONE Stop: 03/04/17 19:34 Fentanyl (Sublimaze) Confirm Administered Dose 100 mcg .ROUTE .STK-MED ONE Stop: 03/04/17 16:02 Ropivacaine (Naropin 0.2%) Confirm Administered Dose 100 mls @ as directed .ROUTE .STK-MED ONE Stop: 03/04/17 05:00 Last Admin: 03/04/17 06:09 Dose: Not Given Ropivacaine (Naropin 0.2%) Confirm Administered Dose 100 mls @ as directed .ROUTE .[facility] ONE Stop: 03/04/17 10:08 Ropivacaine (Naropin 0.2%) Confirm Administered Dose 100 mls @ as directed .ROUTE .[facility] ONE Stop: 03/04/17 16:00 Cefazolin Sodium/Dextrose 1 gm (/ Premix) 50 mls @ 100 mls/hr IV ONETIME ONE Stop: 03/04/17 19:45 Sodium Chloride (Normal Saline) Confirm Administered Dose 20 mls @ as directed .ROUTE .[facility] ONE Stop: 03/04/17 19:37 Sodium Chloride (Normal Saline) Confirm Administered Dose 20 mls @ as directed .ROUTE .[facility] ONE Stop: 03/04/17 19:41 Ketorolac Tromethamine (Toradol) Confirm Administered Dose 30 mg .[address]OUTE .[facility] ONE Stop: 03/04/17 19:52 Lidocaine (Xylocaine-Mpf 2%) Confirm Administered Dose 20 ml .ROUTE .[facility] ONE Stop: 03/04/17 19:34 Morphine Sulfate (Duramorph Pf) Confirm Administered Dose 1 mg .ROUTE .[facility] ONE Stop: 03/04/17 19:40 Nalbuphine HCl (Nubain) Confirm Administered D[facility] 10 [facility] Stop: 03/04/17 19:40 Octyl Cyanoacrylate (Dermabond Advance) Confirm Administered Dose 1 applic .ROUTE .[facility] ONE Stop: 03/04/17 20:13 Ondansetron HCl (Zofran) Confirm Administered Dose 4 mg [facility] Stop: 03/04/17 19:52 Oxytocin (Pitocin) Confirm Administered Dose 30 unit .ROUTE .[facility] ONE Stop: 03/04/17 19:34 Propofol (Diprivan 20 Ml) Confirm Administered Dose 400 mg .ROUTE .[facility] ONE Stop: 03/04/17 19:34 Propofol (Diprivan 20 Ml) Confirm Administered Dose 200 [facility] Stop: 03/04/17 21:50 Ropivacaine (Naropin 0.2%) Confirm Administered Dose 20 ml .ROUTE .STK-MED ONE Stop: 03/04/17 04:59 Last Admin: 03/04/17 06:09 Dose: Not Given Succinylcholine Chloride (Succinylcholine In Ns Pf) Confirm Administered Dose 200 mg .ROUTE .STK-MED ONE Stop: 03/04/17 19:34 - Infant Interaction Infant Disposition, : [place] in Room with Family Infant Interaction: Holding Infant Feeding: Attempted ; Nursed Fair/Poor Support Person: Significant Other - Recovery Exam Fundal Tone: Firm Fundal Level: 1 Fingerbreadths Below Umbilicus Fundal Placement: Midline Lochia Amount: Scant Lochia Color: Rubra/Red Perineum Description: Intact, Minimal Bruising/Swelling, Edematous Episiotomy/Laceration: None Bladder Status: Nonpalpable, Indwelling Catheter in Place Urinary Elimination: Indwelling Catheter - Exam General: Alert, Oriented HEENT: Pupils Equal Neck: Supple Lungs: Clear to Auscultation, Normal Respiratory Effort Cardiovascular: Regular Rate, Regular Rhythm GI/Abdominal Exam: Normal Bowel Sounds, Soft, Non-Tender, No Organomegaly, No Distention, No Abnormal Bruit, No Mass, Pelvis Stable Extremities: Normal Inspection, Normal Range of Motion, Non-Tender, No Pedal Edema, Normal Capillary Refill Skin: Warm, Dry, Intact Wound/Incisions: Healing Well Neurological: No New Focal Deficit Psy/Mental Status: Alert, Normal Affect, Normal Mood - Problem List Review Problem List Initiated/Reviewed/Updated: Yes - My Orders Last 24 Hours: My Active Orders 03/04/17 19:16 Up ad Ludy [RC] ASDIRECTED Verify Patient Consent Obtain [RC] ASDIRECTED Vital Signs [RC] PER UNIT ROUTINE Schedule Procedure [COMM] Per Unit Routine 03/04/17 19:21 Notify Provider Vital Signs [RC] PRN 03/04/17 19:30 Citric Acid/Sodium Citrate [Bicitra Solution] 30 ml PO .ONCE Lactated Ringers [Ringers, Lactated] 1,000 ml IV .BOLUS 03/04/17 20:21 Acetaminophen/oxyCODONE [Percocet 325-5 MG] 1 tab PO Q4H PRN Acetaminophen/oxyCODONE [Percocet 325-5 MG] 2 tab PO Q4H PRN Bisacodyl [Dulcolax] 10 mg RECTAL .ONCE PRN Lanolin [Lansinoh HPA] See Dose Instructions TOP ASDIRECTED PRN Ondansetron [Zofran] 4 mg IVPUSH Q4H PRN diphenhydrAMINE [Benadryl] 25 mg IVPUSH Q6H PRN 03/04/17 20:22 Patient Status [ADT] Routine Ambulate [RC] PER UNIT ROUTINE Antiembolic Devices [RC] PER UNIT ROUTINE Communication Order [RC] PER UNIT ROUTINE Communication Order [RC] PER UNIT ROUTINE Communication Order [RC] Per Unit Routine May Shower [RC] ASDIRECTED RT Incentive Spirometry [RC] Q2HWA Vital Signs [RC] PER UNIT ROUTINE Assess Lochia [WOMSER] Per Unit Routine Assess Uterine Involution [WOMSER] Per Unit Routine Breast Pump [WOMSER] Per Unit Routine Peripheral IV Discontinue [OM.PC] Routine Sequential Compression Device [OM.PC] Per Unit Routine 03/04/17 20:30 Lactated Ringers [Ringers, Lactated] 1,000 ml IV ASDIRECTED 03/04/17 21:00 Docusate Sodium [Colace] 100 mg PO BID 03/05/17 02:00 Ketorolac [Toradol] 30 mg IVPUSH Q6H 03/05/17 Breakfast Regular Diet [DIET] 03/06/17 02:00 Ibuprofen [Motrin] 800 mg PO Q8H PRN - Assessment Assessment:: S/P C/Section doing well. - Plan Plan:: Term admitted for elective induction.
--- NOTE | 2017-03-05 13:06 | PCM48HPAN ---
Post Anesthesia Note - EVALUATION WITHIN 48HRS OF ANESTHETIC Vital Signs in Normal Range: Yes Patient Participated in Evaluation: Yes Respiratory Function Stable: Yes Airway Patent: Yes Cardiovascular Function Stable: Yes Hydration Status Stable: Yes Pain Control Satisfactory: Yes Nausea and Vomiting Control Satisfactory: Yes Mental Status Recovered: Yes - COMMENTS/OBSERVATIONS Free Text/Narrative:: Patient is alert and noncomplaintive, VSS, good analgesia reported, epidural anesthetic is gone. Patient is satisfied with care.
[2017-03-06] MEDS: Acetaminophen/oxyCODONE 325-5 MG Tab PO PRN ×3 (01:49→13:30)
[2017-03-06] MEDS ORDERED: Ibuprofen 800 MG Tab PO PRN (02:00)
[2017-03-06] MEDS: Docusate Sodium 100 MG Cap PO SCH ×2 (07:26→11:14)
[2017-03-06 07:53] VITALS: BP 121/79
--- NOTE | 2017-03-06 08:59 | PCM.SURGPN ---
- General Info Date of Service: 03/06/17 POD#: 2 Functional Status: Reports: Pain Controlled - Review of Systems General: Reports: No Symptoms HEENT: Reports: No Symptoms Pulmonary: Reports: No Symptoms Cardiovascular: Reports: No Symptoms Gastrointestinal: Reports: No Symptoms Genitourinary: Reports: No Symptoms Musculoskeletal: Reports: No Symptoms Skin: Reports: No Symptoms Neurological: Reports: No Symptoms Psychiatric: Reports: No Symptoms - Patient Data Vitals - Most Recent: Last Vital Signs Temp 36.6 C 03/06/17 07:50 Pulse 108 H 03/06/17 07:50 Resp 16 03/06/17 07:50 BP 121/79 03/06/17 07:50 Pulse Ox 97 03/06/17 07:50 Weight - Most Recent: 69.853 kg I&O - Last 24 Hours: Intake & Output 03/05/17 03/06/17 03/06/17 22:59 06:59 14:59 Intake Total 600 Output Total 1650 Balance -1050 Med Orders - Current: Current Medications Bisacodyl (Dulcolax) 10 mg RECTAL .ONCE PRN PRN Reason: Constipation Butorphanol Tartrate (Stadol) 1 mg IVPUSH Q1H PRN PRN Reason: Pain Last Admin: 03/04/17 08:22 Dose: 1 mg Carboprost Tromethamine (Hemabate Ds) 250 mcg IM ASDIRECTED PRN PRN Reason: Post Hemorrhage Citric Acid/Sodium Citrate (Bicitra Solution) 30 ml PO .ONCE [facility] Last Admin: 03/04/17 19:27 Dose: 30 ml Diphenhydramine HCl (Benadryl) 25 mg IVPUSH Q6H PRN PRN Reason: Itching or Nausea Docusate Sodium (Colace) 100 mg PO BID [facility] Last Admin: 03/06/17 07:26 Dose: Not Given Emollient Ointment (Lansinoh Hpa) 0 gm TOP ASDIRECTED PRN PRN Reason: Sore Nipples Lactated Ringer's (Ringers, Lactated) 1,000 mls @ 150 mls/hr IV ASDIRECTED [facility] Last Admin: 03/04/17 15:27 Dose: 150 mls/hr Oxytocin/Sodium Chloride (Oxytocin 30 Unit/500 Ml-Ns) 30 unit in 500 mls @ 999 mls/hr IV TITRATE [facility] Lactated Ringer's (Ringers, Lactated) 1,000 mls @ 500 mls/hr IV .BOLUS [facility] Lactated Ringer's (Ringers, Lactated) 1,000 mls @ 125 mls/hr IV ASDIRECTED [facility] Last Admin: 03/05/17 06:35 Dose: 125 mls/hr Ibuprofen (Motrin) 800 mg PO Q8H PRN PRN Reason: mild pain or fever Lidocaine HCl (Xylocaine 1%) 50 ml INJECT .ONCE PRN PRN Reason: Laceration repair Methylergonovine Maleate (Methergine) 0.2 mg IM ASDIRECTED PRN PRN Reason: Post Hemorrhage Misoprostol (Cytotec) 200 mcg PO .ONCE PRN PRN Reason: Post Hemorrhage Misoprostol (Cytotec) 25 mcg VAG .ONCE [facility] Last Admin: 03/04/17 02:25 Dose: 25 mcg Misoprostol (Cytotec) 25 mcg VAG Q4H PRN PRN Reason: Cervical Ripening Last Admin: 03/04/17 06:34 Dose: 25 mcg Misoprostol (Cytotec) 25 mcg PO .ONCE DANAE Last Admin: 03/04/17 02:25 Dose: 25 mcg Misoprostol (Cytotec) 25 mcg PO Q4H PRN PRN Reason: Cervical Ripening Last Admin: 03/04/17 06:34 Dose: 25 mcg Nalbuphine HCl (Nubain) 10 mg IVPUSH Q1H PRN PRN Reason: Pain (severe 7-10) Ondansetron HCl (Zofran) 4 mg IVPUSH Q4H PRN PRN Reason: Nausea/Vomiting Oxycodone/Acetaminophen (Percocet 325-5 Mg) 1 tab PO Q4H PRN PRN Reason: Pain (moderate 4-6) Last Admin: 03/06/17 07:46 Dose: 1 tab Oxycodone/Acetaminophen (Percocet 325-5 Mg) 2 tab PO Q4H PRN PRN Reason: Pain (moderate 4-6) Sodium Chloride (Saline Flush) 10 ml FLUSH ASDIRECTED PRN PRN Reason: Keep Vein Open Sodium Chloride (Saline Flush) 2.5 ml FLUSH ASDIRECTED PRN PRN Reason: Keep Vein Open Sterile Water (Sterile Water For Irrigation) 1,000 ml IRR ASDIRECTED PRN PRN Reason: delivery Terbutaline Sulfate (Brethine) 0.25 mg SUBCUT ASDIRECTED PRN PRN Reason: Tacysystole Discontinued Medications Bupivacaine HCl (Sensorcaine-Mpf 0.5%) Confirm Administered Dose 20 ml .ROUTE .STK-MED ONE Stop: 03/04/17 19:29 Cefazolin Sodium (Ancef) Confirm Administered Dose 2 gm .ROUTE .ST-MED ONE Stop: 03/04/17 19:37 Citric Acid/Sodium Citrate (Bicitra Solution) Confirm Administered Dose 30 ml .ROUTE .STK-MED ONE Stop: 03/04/17 19:19 Diphenhydramine HCl (Benadryl) 25 mg IVPUSH Q4H PRN PRN Reason: Itching Stop: 03/05/17 20:21 Last Admin: 03/05/17 08:31 Dose: 25 mg Ephedrine Sulfate (Ephedrine Sulfate) Confirm Administered Dose 50 mg .ROUTE .[facility] ONE Stop: 03/04/17 19:34 Fentanyl (Sublimaze) Confirm Administered Dose 100 mcg .ROUTE .ST-MED ONE Stop: 03/04/17 16:02 Fentanyl (Sublimaze) 50 mcg IVPUSH Q45M PRN PRN Reason: Pain (severe 7-10) Stop: 03/05/17 20:22 Ropivacaine (Naropin 0.2%) Confirm Administered Dose 100 mls @ as directed .ROUTE .[facility] ONE Stop: 03/04/17 05:00 Last Admin: 03/04/17 06:09 Dose: Not Given Ropivacaine (Naropin 0.2%) Confirm Administered Dose 100 mls @ as directed .ROUTE .ST-MED ONE Stop: 03/04/17 10:08 Ropivacaine (Naropin 0.2%) Confirm Administered Dose 100 mls @ as directed .ROUTE .[facility] ONE Stop: 03/04/17 16:00 Cefazolin Sodium/Dextrose 1 gm (/ Premix) 50 mls @ 100 mls/hr IV ONETIME ONE Stop: 03/04/17 19:45 Sodium Chloride (Normal Saline) Confirm Administered Dose 20 mls @ as directed .ROUTE .ST-MED ONE Stop: 03/04/17 19:37 Sodium Chloride (Normal Saline) Confirm Administered Dose 20 mls @ as directed .ROUTE .STK-MED ONE Stop: 03/04/17 19:41 Ketorolac Tromethamine (Toradol) Confirm Administered Dose 30 mg .ROUTE .STK- MED ONE Stop: 03/04/17 19:52 Ketorolac Tromethamine (Toradol) 30 mg IVPUSH Q6H [facility]NA[facility] Stop: 03/05/17 20:01 Last Admin: 03/05/17 21:12 Dose: 30 mg Lidocaine (Xylocaine-Mpf 2%) Confirm Administered Dose 20 ml .ROUTE .STK-MED ONE Stop: 03/04/17 19:34 Morphine Sulfate (Duramorph Pf) Confirm Administered Dose 1 mg .ROUTE .STK-MED ONE Stop: 03/04/17 19:40 Nalbuphine HCl (Nubain) Confirm Administered Dose 10 mg .ROUTE .STK-MED ONE Stop: 03/04/17 19:40 Nalbuphine HCl (Nubain) 5 mg IVPUSH Q3H PRN PRN Reason: Pruritis Stop: 03/05/17 20:21 Naloxone HCl (Narcan) 0.1 mg IVPUSH ONETIME PRN PRN Reason: Respiratory Depression Stop: 03/05/17 20:21 Octyl Cyanoacrylate (Dermabond Advance) Confirm Administered Dose 1 applic .ROUTE .STK-MED ONE Stop: 03/04/17 20:13 Ondansetron HCl (Zofran) Confirm Administered Dose 4 mg .ROUTE .STK-MED ONE Stop: 03/04/17 19:52 Oxytocin (Pitocin) Confirm Administered Dose 30 unit .ROUTE .STK-MED ONE Stop: 03/04/17 19:34 Propofol (Diprivan 20 Ml) Confirm Administered Dose 400 mg .ROUTE .STK-MED ONE Stop: 03/04/17 19:34 Propofol (Diprivan 20 Ml) Confirm Administered Dose 200 mg .ROUTE .STK-MED ONE Stop: 03/04/17 21:50 Ropivacaine (Naropin 0.2%) Confirm Administered Dose 20 ml .ROUTE .STK-MED ONE Stop: 03/04/17 04:59 Last Admin: 03/04/17 06:09 Dose: Not Given Succinylcholine Chloride (Succinylcholine In Ns Pf) Confirm Administered Dose 200 mg .ROUTE .STK-MED ONE Stop: 03/04/17 19:34 - Exam Wound/Incisions: Healing Well General: Alert, Oriented HEENT: Pupils Equal Neck: Supple Lungs: Clear to Auscultation, Normal Respiratory Effort Cardiovascular: Regular Rate, Regular Rhythm GI/Abdominal Exam: Normal Bowel Sounds, Soft, Non-Tender, No Organomegaly, No Distention, No Abnormal Bruit, No Mass, Pelvis Stable Extremities: Normal Inspection, Normal Range of Motion, Non-Tender, No Pedal Edema, Normal Capillary Refill Skin: Warm, Dry, Intact Neurological: No New Focal Deficit Psy/Mental Status: Alert, Normal Affect, Normal Mood - Problem List Review Problem List Initiated/Reviewed/Updated: Yes - My Orders Last 24 Hours: Active Orders 24 hr Category Date Time Status Ibuprofen [Motrin] Med 03/06/17 02:00 Active 800 mg PO Q8H PRN AN Neuroaxis Duramorph Precaution Reflex [OM.PC] PER Oth 03/05/17 20:30 Ordered UNIT ROUTINE Medication Orders Bisacodyl (Dulcolax) 10 mg RECTAL .ONCE PRN PRN Reason: Constipation Butorphanol Tartrate (Stadol) 1 mg IVPUSH Q1H PRN PRN Reason: Pain Last Admin: 03/04/17 08:22 Dose: 1 mg Carboprost Tromethamine (Hemabate Ds) 250 mcg IM ASDIRECTED PRN PRN Reason: Post Hemorrhage Citric Acid/Sodium Citrate (Bicitra Solution) 30 ml PO .ONCE [facility] Last Admin: 03/04/17 19:27 Dose: 30 ml Diphenhydramine HCl (Benadryl) 25 mg IVPUSH Q6H PRN PRN Reason: Itching or Nausea Docusate Sodium (Colace) 100 mg PO BID [facility] Last Admin: 03/06/17 07:26 Dose: Admin: 03/05/17 21:13 Dose: 100 mg Admin: 03/05/17 09:14 Dose: 100 mg Emollient Ointment (Lansinoh Hpa) 0 gm TOP ASDIRECTED PRN PRN Reason: Sore Nipples Lactated Ringer's (Ringers, Lactated) 1,000 mls @ 150 mls/hr IV ASDIRECTED [facility] Last Admin: 03/04/17 15:27 Dose: 150 mls/hr Infusion: 03/04/17 15:27 Dose: 150 mls/hr Admin: 03/04/17 10:54 Dose: 150 mls/hr Infusion: 03/04/17 10:51 Dose: 999 mls/hr Admin: 03/04/17 09:50 Dose: 999 mls/hr Oxytocin/Sodium Chloride (Oxytocin 30 Unit/500 Ml-Ns) 30 unit in 500 mls @ 999 mls/hr IV TITRATE [facility] Lactated Ringer's (Ringers, Lactated) 1,000 mls @ 500 mls/hr IV .BOLUS [facility] Lactated Ringer's (Ringers, Lactated) 1,000 mls @ 125 mls/hr IV ASDIRECTED [facility] Last Admin: 03/05/17 06:35 Dose: 125 mls/hr Infusion: 03/05/17 06:15 Dose: 125 mls/hr Admin: 03/04/17 22:15 Dose: 125 mls/hr Ibuprofen (Motrin) 800 mg PO Q8H PRN PRN Reason: mild pain or fever Lidocaine HCl (Xylocaine 1%) 50 ml INJECT .ONCE PRN PRN Reason: Laceration repair Methylergonovine Maleate (Methergine) 0.2 mg IM ASDIRECTED PRN PRN Reason: Post Hemorrhage Misoprostol (Cytotec) 200 mcg PO .ONCE PRN PRN Reason: Post Hemorrhage Misoprostol (Cytotec) 25 mcg VAG .ONCE [facility] Last Admin: 03/04/17 02:25 Dose: 25 mcg Misoprostol (Cytotec) 25 mcg VAG Q4H PRN PRN Reason: Cervical Ripening Last Admin: 03/04/17 06:34 Dose: 25 mcg Misoprostol (Cytotec) 25 mcg PO .ONCE [facility]NAE Last Admin: 03/04/17 02:25 Dose: 25 mcg Misoprostol (Cytotec) 25 mcg PO Q4H PRN PRN Reason: Cervical Ripening Last Admin: 03/04/17 06:34 Dose: 25 mcg Nalbuphine HCl (Nubain) 10 mg IVPUSH Q1H PRN PRN Reason: Pain (severe 7-10) Ondansetron HCl (Zofran) 4 mg IVPUSH Q4H PRN PRN Reason: Nausea/Vomiting Oxycodone/Acetaminophen (Percocet 325-5 Mg) 1 tab PO Q4H PRN PRN Reason: Pain (moderate 4-6) Last Admin: 03/06/17 07:46 Dose: 1 tab Admin: 03/06/17 01:49 Dose: 1 tab Oxycodone/Acetaminophen (Percocet 325-5 Mg) 2 tab PO Q4H PRN PRN Reason: Pain (moderate 4-6) Sodium Chloride (Saline Flush) 10 ml FLUSH ASDIRECTED PRN PRN Reason: Keep Vein Open Sodium Chloride (Saline Flush) 2.5 ml FLUSH ASDIRECTED PRN PRN Reason: Keep Vein Open Sterile Water (Sterile Water For Irrigation) 1,000 ml IRR ASDIRECTED PRN PRN Reason: delivery Terbutaline Sulfate (Brethine) 0.25 mg SUBCUT ASDIRECTED PRN PRN Reason: Tacysystole - Assessment Assessment (Free Text/Narrative):: S/P C/section doing well - Plan Plan (Free Text/Narrative):: Send home today.
== END 2017-03-06 13:40 | disposition home or self-care (01) | DRG 540 ==
LOC: MW.OBCHECK 01:17 → MW.OB 01:20 → MW.OBCHECK 01:41 → MW.OB 01:41 → OBSVTOIN 19:57 → MW.OB 03-05 03:41
PROVIDERS: ADMIT Obstetrics & Gynecology; ATTEND Obstetrics & Gynecology
PROC: 10D00Z1 Extraction of Products of Conception, Low, Open Approach (ICD-10-PCS; principal; 2017-03-04)
PROC: 3E0P7VZ Introduction of Hormone into Female Reproductive, Via Natural or Artificial Opening (ICD-10-PCS; 2017-03-04)
PROC: 3E033VJ Introduction of Other Hormone into Peripheral Vein, Percutaneous Approach (ICD-10-PCS; 2017-03-04)
DX: O76 Abnormality in fetal heart rate and rhythm complicating labor and delivery (principal); O61.0 Failed medical induction of labor; Z3A.40 40 weeks gestation of pregnancy; Z37.0 Single live birth
CPT/HCPCS: 01967; 01968; 36415; 51702; 59025; 84112; 85014; 85018; 85027; 86850; 86900; 86901; A9270-GY; J0595; J0690; J1200; J1885; J2274; J2300; J2405; J2590; J2704; J2795; J7120

== ENCOUNTER 2018-06-09 09:52 | Observation (INO) | payer BC ==
--- NOTE | 2018-06-09 12:47 | US ---
EXAMINATION: Transabdominal obstetric ultrasound HISTORY: Check placenta COMPARISON: 05/30/2018 TECHNIQUE: Grayscale, M-mode, and color Doppler imaging obtained. FINDINGS: Single live intrauterine in a transverse position. Posterior placenta which completely covers the cervical os. Amniotic fluid index is normal. heart rate is 130 bpm. IMPRESSION: 1. Complete placenta previa. 2. Single live intrauterine in a transverse position.
[2018-06-09] MEDS ORDERED: Betamethasone Acetate/Betamethasone Sod Phosphate 30 MG/5 ML MDV IM ONE (13:32)
--- NOTE | 2018-06-09 14:10 | PCM.LDHP ---
L&D History of Present Illness - General Date of Service: 06/09/18 Admit Problem/Dx: Patient Status Order with Admit Dx/Problem 06/09/18 10:15 Patient Status [ADT] Routine 06/09/18 13:30 Patient Status [ADT] Routine Admission Diagnosis/Problem Admission Diagnosis/Problem Source of Information: Patient History Limitations: Reports: No Limitations - History of Present Illness Improves with: Reports: None Worsens with: Reports: None Associated Symptoms: Reports: N - Related Data Allergies/Adverse Reactions: Allergies Allergy/AdvReac Type Severity Reaction Status Date / Time No Known Allergies Allergy Verified 05/07/18 20:36 Home Medications: Home Meds PNV95/Ferrous Fumarate/FA [ Tablet] 03/04/17 [History] Past Medical History - Past Health History Medical/Surgical History: Denies Medical/Surgical History HEENT History: Reports: None Cardiovascular History: Reports: None Respiratory History: Reports: None Gastrointestinal History: Reports: Other (See Below) Other Gastrointestinal History: acid reflux Genitourinary History: Reports: None 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: Musculoskeletal History: Reports: None Neurological History: Reports: Migraines Other Neuro History: Pt states hx migraines x1 year Psychiatric History: Reports: None Endocrine/Metabolic History: Reports: Obesity/BMI 30+ Hematologic History: Reports: None Immunologic History: Reports: None Oncologic (Cancer) History: Reports: None Dermatologic History: Reports: None - Infectious Disease History Infectious Disease History: Reports: Chicken Pox, Shingles - Past Surgical History HEENT Surgical History: Reports: Oral Surgery, Tonsillectomy Other HEENT Surgeries/Procedures: wisdom teeth extraction GI Surgical History: Reports: None Neurological Surgical History: Reports: None Social & Family History - Family History Family Medical History: Noncontributory OBGYN: Reports: Neurological: Reports: CVA Oncologic: Reports: Ovarian - Caffeine Use Caffeine Use: Reports: None H&P Review of Systems - Review of Systems: Review Of Systems: See Below General: Reports: No Symptoms HEENT: Reports: No Symptoms Pulmonary: Reports: No Symptoms Cardiovascular: Reports: No Symptoms Gastrointestinal: Reports: No Symptoms Genitourinary: Reports: No Symptoms Musculoskeletal: Reports: No Symptoms Skin: Reports: No Symptoms Psychiatric: Reports: No Symptoms Neurological: Reports: No Symptoms Hematologic/Lymphatic: Reports: No Symptoms Immunologic: Reports: No Symptoms L&D Exam - Exam Exam: See Below - Vital Signs Weight: 76.204 kg - Exam General: Alert, Oriented HEENT: PERRLA, Conjunctiva Clear, EACs Clear, EOMI, Hearing Intact, Mucosa Moist & [place], Nares Patent, Normal Nasal Septum, Posterior Pharynx Clear, TMs Clear Neck: Supple, Trachea Midline Lungs: Clear to Auscultation, Normal Respiratory Effort Cardiovascular: Regular Rate, Regular Rhythm GI/Abdominal Exam: Normal Bowel Sounds, Soft, Non-Tender, No Organomegaly, No Distention, No Abnormal Bruit, No Mass, Pelvis Stable Rectal Exam: Normal Exam, Normal Rectal Tone Genitourinary: Normal external exam, Normal bimanual exam, Normal speculum exam Back Exam: Normal Inspection, Full Range of Motion Extremities: Normal Inspection, Normal Range of Motion, Non-Tender, No Pedal Edema, Normal Capillary Refill Skin: Warm, Dry, Intact Neurological: Cranial Nerves Intact, Reflexes Equal Bilateral Psychiatric: Alert, Normal Affect, Normal Mood - Patient Data Lab Results Last 24 hrs: Laboratory Results - last 24 hr 06/09/18 06/09/18 Range/Units 10:09 11:50 WBC 8.39 (4.0-11.0) K/uL RBC 3.79 L (4.30-5.90) M/uL Hgb 9.3 L (12.0-16.0) g/dL Hct 30.5 L (36.0-46.0) % MCV 80.5 (80.0-98.0) fL MCH 24.5 L (27.0-32.0) pg MCHC 30.5 L (31.0-37.0) g/dL RDW Std Deviation 43.8 (28.0-62.0) fl RDW Coeff of Toby 15 (11.0-15.0) % Plt Count 293 (150-400) K/uL MPV 9.90 (7.40-12.00) fL Neutrophils % (Manual) 78 (48.0-80.0) % Lymphocytes % (Manual) 19 (16.0-40.0) % Monocytes % (Manual) 3 (0.0-15.0) % Nucleated RBC % 0.0 /100WBC Absolute Seg Neuts 6.5 H (1.4-5.7) Lymphocytes # (Manual) 1.6 (0.6-2.4) Monocytes # (Manual) 0.3 (0.0-0.8) Urine Color YELLOW Urine Appearance CLEAR Urine pH 7.0 (5.0-8.0) Ur Specific [place] 1.010 (1.001-1.035) Urine Protein NEGATIVE (NEGATIVE) mg/dL Urine Glucose (UA) NEGATIVE (NEGATIVE) mg/dL Urine Ketones NEGATIVE (NEGATIVE) mg/dL Urine Occult Blood LARGE H (NEGATIVE) Urine Nitrite NEGATIVE (NEGATIVE) Urine Bilirubin NEGATIVE (NEGATIVE) Urine Urobilinogen 0.2 (<2.0) EU/dL Ur Leukocyte Esterase NEGATIVE (NEGATIVE) Result Diagrams: 06/09/18 11:50 Problem List Initiated/Reviewed/Updated: Yes Orders Last 24hrs: Active Orders 24 hr Category Date Time Status Patient Status [ADT] Routine ADT 06/09/18 10:15 Active Patient Status [ADT] Routine ADT 06/09/18 13:30 Active Bedrest Bathroom Privileges [RC] ASDIRECTED Care 06/09/18 13:31 Active Non Stress Test [RC] PER UNIT ROUTINE Care 06/09/18 10:15 Active Up ad Ludy [RC] ASDIRECTED Care 06/09/18 10:15 Active Vaginal Exam [RC] Click to Edit Care 06/09/18 10:15 Active Vital Signs [RC] PER UNIT ROUTINE Care 06/09/18 10:15 Active CBC WITH MANUAL DIFF [HEME] Routine Lab 06/10/18 06:00 Ordered Resuscitation Status Routine Resus Stat 06/09/18 10:14 Ordered Assessment/Plan Comment:: This is a 22 years old patient she is 33+2 weeks with complete placenta previa she is para 1001 she have a previous section she is scheduled for elective repeat section at 36-37wks. who presented today to labor and delivery with the spotting especially when she'll go to the bathroom there is no active bleeding. Ultrasound confirmed the placenta previa and confirmed that she does not have an abruption and there is no active bleeding at the placenta site at this time. My plan on this patient is to admit her to the hospital for observation and bedrest and do serial hematocrits to assess had a bleeding. I also starting her on steroid therapy to enhance lung maturity in case she started actively bleeding and we have to do interference in this . I explained this to the patient in detail she agreed to this management. And we would affect and treat accordingly
--- NOTE | 2018-06-10 10:43 | PCM.PNLD ---
Labor Progress Note - VS & Meds Active Medications: Current Medications Betamethasone Acet/Betameth SodPhos (Celestone Soluspan 6 Mg/Ml) 12 mg IM ONETIME ONE Stop: 06/10/18 13:44 Discontinued Medications Betamethasone Acet/Betameth SodPhos (Celestone Soluspan 6 Mg/Ml) 12 mg IM ONETIME ONE Stop: 06/09/18 13:33 Last Admin: 06/09/18 13:43 Dose: 5 ml - Uterine Contractions Contraction Intensity: Mild Uterine Resting Tone: Soft - Vaginal Exam Sterile Vaginal Exam Performed By: not done - Labor Progress (Free Text) Labor Progress: Complete placenta priva. bleeding stop. reactive NST. Hct stable. planning to send home after she finish her steroid injection on bed rest..
[2018-06-10] MEDS ORDERED: Betamethasone Acetate/Betamethasone Sod Phosphate 30 MG/5 ML MDV IM ONE (13:43)
== END 2018-06-10 14:47 | disposition home or self-care (01) ==
LOC: MW.OBCHECK 09:52 → MW.OB 09:54 → MW.OBCHECK 13:29 → MW.OB 13:30
PROVIDERS: ADMIT Obstetrics & Gynecology; ATTEND Obstetrics & Gynecology
DX: O26.853 Spotting complicating pregnancy, third trimester (principal); Z3A.35 35 weeks gestation of pregnancy; E66.9 Obesity, unspecified; Z68.33 Body mass index [BMI] 33.0-33.9, adult
CPT/HCPCS: 36415; 59025; 76815; 81003; 85007; 85027; 96372; G0378; J0702

== ENCOUNTER 2018-06-11 08:56 | Inpatient (IN) | payer BC ==
--- NOTE | 2018-06-11 09:54 | PCM.PREANE ---
Preanesthetic Assessment - Anesthesia/Transfusion/Family Hx Anesthesia History: Prior Anesthesia Without Reaction Family History of Anesthesia Reaction: No Transfusion History: No Prior Transfusion(s) - Review of Systems General: No Symptoms Pulmonary: No Symptoms Cardiovascular: No Symptoms Gastrointestinal: No Symptoms Neurological: No Symptoms Other: Reports: None - Physical Assessment NPO Status Date: 06/11/18 NPO Status Time: 02:00 ASA Class: 3E Mental Status: Alert & Oriented x3 Airway Class: Mallampati = 2 Dentition: Reports: Normal Dentition Thyro-Mental Finger Breadths: 3 Mouth Opening Finger Breadths: 3 ROM/Head Extension: Full Lungs: Clear to Auscultation, Normal Respiratory Effort Cardiovascular: Regular Rate, Regular Rhythm - Lab Values: Laboratory Last Values Hgb 8.7 g/dL (12.0-16.0) L 06/11/18 09:28 Hct 27.9 % (36.0-46.0) L 06/11/18 09:28 - Allergies Allergies/Adverse Reactions: Allergies Allergy/AdvReac Type Severity Reaction Status Date / Time No Known Allergies Allergy Verified 05/07/18 20:36 - Blood Product(s) Available: PRBC (x6 units) - Anesthesia Plan Free Text/Narrative:: Complete placenta previa, 33 weeks gestation, labs pending, 2nd large bore IV ordered for nursing to insert. Patient understands and accepts blood transfusion. Spoke with ADELSO Calvin with RSI will be performed due to hemorrhage and hypotension. Pt understands and wishes to proceed at this time. - Acknowledgements Anesthesia Type Planned: General Anesthesia, Spinal Pt an Appropriate Candidate for the Planned Anesthesia: Yes Alternatives and Risks of Anesthesia Discussed w Pt/Guardian: Yes Pt/Guardian Understands and Agrees with Anesthesia Plan: Yes PreAnesthesia Questionnaire - Past Health History Medical/Surgical History: Denies Medical/Surgical History HEENT History: Reports: None Cardiovascular History: Reports: None Respiratory History: Reports: None Gastrointestinal History: Reports: GERD, Other (See Below) Other Gastrointestinal History: acid reflux Genitourinary History: Reports: None 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): Musculoskeletal History: Reports: None Neurological History: Reports: Migraines Other Neuro History: Pt states hx migraines x1 year Psychiatric History: Reports: None Endocrine/Metabolic History: Reports: Obesity/BMI 30+ Hematologic History: Reports: None Immunologic History: Reports: None Oncologic (Cancer) History: Reports: None Dermatologic History: Reports: None - Infectious Disease History Infectious Disease History: Reports: Chicken Pox, Shingles - Past Surgical History HEENT Surgical History: Reports: Oral Surgery, Tonsillectomy Other HEENT Surgeries/Procedures: wisdom teeth extraction GI Surgical History: Reports: None Neurological Surgical History: Reports: None - HOME MEDS Home Medications: Home Meds PNV95/Ferrous Fumarate/FA [ Tablet] 03/04/17 [History]
--- NOTE | 2018-06-11 09:57 | PCM.LDHP ---
L&D History of Present Illness - General Date of Service: 06/11/18 Admit Problem/Dx: Patient Status Order with Admit Dx/Problem 06/11/18 09:13 Patient Status [ADT] Routine Admission Diagnosis/Problem Admission Diagnosis/Problem Bleeding Source of Information: Patient History Limitations: Reports: No Limitations - History of Present Illness Improves with: Reports: None Worsens with: Reports: None Associated Symptoms: Reports: N - Related Data Allergies/Adverse Reactions: Allergies Allergy/AdvReac Type Severity Reaction Status Date / Time No Known Allergies Allergy Verified 05/07/18 20:36 Home Medications: Home Meds PNV95/Ferrous Fumarate/FA [ Tablet] 03/04/17 [History] Past Medical History - Past Health History Medical/Surgical History: Denies Medical/Surgical History HEENT History: Reports: None Cardiovascular History: Reports: None Respiratory History: Reports: None Gastrointestinal History: Reports: GERD, Other (See Below) Other Gastrointestinal History: acid reflux Genitourinary History: Reports: None 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: Musculoskeletal History: Reports: None Neurological History: Reports: Migraines Other Neuro History: Pt states hx migraines x1 year Psychiatric History: Reports: None Endocrine/Metabolic History: Reports: Obesity/BMI 30+ Hematologic History: Reports: None Immunologic History: Reports: None Oncologic (Cancer) History: Reports: None Dermatologic History: Reports: None - Infectious Disease History Infectious Disease History: Reports: Chicken Pox, Shingles - Past Surgical History HEENT Surgical History: Reports: Oral Surgery, Tonsillectomy Other HEENT Surgeries/Procedures: wisdom teeth extraction GI Surgical History: Reports: None Neurological Surgical History: Reports: None Social & Family History - Family History Family Medical History: Noncontributory OBGYN: Reports: Neurological: Reports: CVA Oncologic: Reports: Ovarian - Caffeine Use Caffeine Use: Reports: None H&P Review of Systems - Review of Systems: Review Of Systems: See Below General: Reports: No Symptoms HEENT: Reports: No Symptoms Pulmonary: Reports: No Symptoms Cardiovascular: Reports: No Symptoms Gastrointestinal: Reports: No Symptoms Genitourinary: Reports: No Symptoms Musculoskeletal: Reports: No Symptoms Skin: Reports: No Symptoms Psychiatric: Reports: No Symptoms Neurological: Reports: No Symptoms Hematologic/Lymphatic: Reports: No Symptoms Immunologic: Reports: No Symptoms L&D Exam - Exam Exam: See Below - Exam General: Alert, Oriented HEENT: PERRLA, Conjunctiva Clear, EACs Clear, EOMI, Hearing Intact, Mucosa Moist & [place], Nares Patent, Normal Nasal Septum, Posterior Pharynx Clear, TMs Clear Neck: Supple, Trachea Midline Lungs: Clear to Auscultation, Normal Respiratory Effort Cardiovascular: Regular Rate, Regular Rhythm GI/Abdominal Exam: Normal Bowel Sounds, Soft, Non-Tender, No Organomegaly, No Distention, No Abnormal Bruit, No Mass, Pelvis Stable Rectal Exam: Normal Exam, Normal Rectal Tone Genitourinary: Normal external exam, Normal bimanual exam, Normal speculum exam Back Exam: Normal Inspection, Full Range of Motion Extremities: Normal Inspection, Normal Range of Motion, Non-Tender, No Pedal Edema, Normal Capillary Refill Skin: Warm, Dry, Intact Neurological: Cranial Nerves Intact, Reflexes Equal Bilateral Psychiatric: Alert, Normal Affect, Normal Mood - Patient Data Lab Results Last 24 hrs: Laboratory Results - last 24 hr 06/11/18 Range/Units 09:28 Hgb 8.7 L (12.0-16.0) g/dL Hct 27.9 L (36.0-46.0) % Result Diagrams: 06/11/18 09:28 Problem List Initiated/Reviewed/Updated: Yes Orders Last 24hrs: Active Orders 24 hr Category Date Time Status Patient Status [ADT] Routine ADT 06/11/18 09:13 Active Non Stress Test [RC] PER UNIT ROUTINE Care 06/11/18 09:13 Active Up ad Ludy [RC] ASDIRECTED Care 06/11/18 09:13 Active Vaginal Exam [RC] Click to Edit Care 06/11/18 09:13 Active Vital Signs [RC] PER UNIT ROUTINE Care 06/11/18 09:13 Active RED BLOOD CELLS LP [BBK] Routine Lab 06/11/18 09:15 Ordered TYPE AND SCREEN [BBK] Routine Lab 06/11/18 09:15 Ordered Resuscitation Status Routine Resus Stat 06/11/18 09:13 Ordered Assessment/Plan Comment:: * IUP 33+4 with complet placenta previa in active bleeding. will will do emergency repeat C/section.
[2018-06-11] MEDS: Lactated Ringers 1,000 ML IV SCH ×2 (10:00→12:12)
[2018-06-11] MEDS ORDERED: Sodium Chloride 0.9% 20 ML ONE ×2 (10:12)
[2018-06-11] MEDS ORDERED: ePHEDrine 50 MG/ML SDV ONE (10:12)
[2018-06-11] MEDS ORDERED: ceFAZolin 1 GM Vial ONE (10:12)
[2018-06-11] MEDS ORDERED: Morphine PF 10 MG/10 ML SDV ONE (10:14)
[2018-06-11] MEDS ORDERED: Propofol 200 MG/20 ML SDV ONE (10:15)
[2018-06-11] MEDS ORDERED: Sodium Chloride 0.9% 10 ML SDV IV PRN (10:25)
[2018-06-11] MEDS ORDERED: Sodium Chloride 0.9% 2.5 ML Syringe FLUSH PRN (10:25)
[2018-06-11] MEDS ORDERED: Citric Acid/Sodium Citrate Solution 30 ML Cup PO ONE (10:25)
[2018-06-11] MEDS ORDERED: Ondansetron 4 MG/2 ML SDV IVPUSH PRN ×2 (10:25→11:09)
[2018-06-11] MEDS ORDERED: Sodium Chloride 0.9% 10 ML Syringe FLUSH PRN (10:25)
[2018-06-11] MEDS ORDERED: Midazolam 1 MG/ML 2 ML SDV ONE (10:27)
[2018-06-11] MEDS ORDERED: fentaNYL 250 MCG/5 ML SDV ONE (10:29)
[2018-06-11] MEDS ORDERED: Oxytocin/0.9 % Sodium Chloride 30 UNIT/500 ML BAG IV SCH (10:30)
[2018-06-11] MEDS ORDERED: Octyl 2-Cyanoacrylate 1 Tube ONE (11:00)
[2018-06-11] MEDS ORDERED: HYDROmorphone 2 MG/ML Syringe ONE (11:02)
[2018-06-11] MEDS ORDERED: Bisacodyl 10 MG Supp RECTAL PRN (11:09)
[2018-06-11] MEDS ORDERED: diphenhydrAMINE 50 MG/ML SDV IVPUSH PRN (11:09)
[2018-06-11] MEDS ORDERED: Lanolin 100% Cream 7 GM Tube TOP PRN (11:09)
--- NOTE | 2018-06-11 11:13 | PCM.OPNOTE ---
- General Post-Op/Procedure Note Date of Surgery/Procedure: 06/11/18 Operative Procedure(s): Emergency C/section. Pre Op Diagnosis: IUP33+4 wks complite placentaprevia bleeding. Post-Op Diagnosis: Same Anesthesia Technique: General ET Tube Primary Surgeon: Rafa Silvestre EBL in mLs: 1,100 Complications: None Condition: Good
[2018-06-11] MEDS ORDERED: Lactated Ringers 1,000 ML IV SCH (11:15)
[2018-06-11] MEDS ORDERED: Naloxone 0.4 MG/ML Syringe IVPUSH PRN (11:25)
[2018-06-11] MEDS ORDERED: 50% Dextrose in Water 50 ML Syringe IVPUSH PRN (11:25)
[2018-06-11] MEDS ORDERED: Albuterol 0.083% 2.5 MG/3 ML Neb Soln NEB PRN (11:25)
[2018-06-11] MEDS ORDERED: EPINEPHrine 1:10,000 1 MG/10 ML Syringe IVPUSH PRN (11:25)
[2018-06-11] MEDS ORDERED: Atropine 0.1 MG/ML 10 ML Syringe IVPUSH PRN ×2 (11:25)
[2018-06-11] MEDS: fentaNYL 100 MCG/2 ML SDV IVPUSH PRN ×2 (11:37→11:46)
[2018-06-11] MEDS: Ketorolac 30 MG/ML SDV IVPUSH SCH ×3 (11:39→23:50)
--- NOTE | 2018-06-11 11:44 | PCM.POSTAN ---
POST ANESTHESIA ASSESSMENT - MENTAL STATUS Mental Status: Alert, Oriented - VITAL SIGNS Pulse Rate: 112 SaO2: 97 (RA) Resp Rate: 14 Blood Pressure: 110/66 - RESPIRATORY Respiratory Status: Respiratory Rate WNL, Airway Patent, O2 Saturation Stable - CARDIOVASCULAR CV Status: Pulse Rate WNL, Blood Pressure Stable - GASTROINTESTINAL GI Status: No Symptoms - PAIN Pain Score: 2 - POST OP HYDRATION Hydration Status: Adequate & Stable
--- NOTE | 2018-06-11 12:15 | OR ---
SURGEON: Rafa Silvestre MD DATE OF PROCEDURE: PREOPERATIVE DIAGNOSIS: Intrauterine at 33+ weeks, complete placenta previa and bleeding. POSTOPERATIVE DIAGNOSIS: Intrauterine at 33+ weeks, complete placenta previa and bleeding. OPERATION PERFORMED: Emergency repeat low-transverse section. BAGGAGE CLERK: OR ashish. ANESTHESIA: General endotracheal intubation, Jovanny De Souza and Dr. Bellamy. ESTIMATED BLOOD LOSS: 1100 mL to 1200 mL. COMPLICATIONS: None. ADVISORY SERVICES ASSOCIATE: FINDING: Complete placenta previa, female fetus in breech presentation, delivered without any complication. INDICATION: This patient is 22. She had previous section. She is known to have complete placenta previa. She is 33 plus 4. She was admitted two days ago with spotting and then she was given steroid. She was observed for 36 hours and the bleeding stopped and fetus have reactive NST and the patient's send in on complete bedrest. However, the patient has came back this morning with the vaginal bleeding and trickling down and the patient has continued to bleed. Her hematocrit was dropped, so a decision at this time consulting with parent and the patient. The decision was made to do an emergency low transverse section. Student Services Coordinator and anesthesia in form of the condition. Type and crossmatch for 4 unit off blood was ordered and became available at the time of the surgery and the patient was taken for emergency section. PROCEDURE IN DETAIL: The patient was brought to the OR, properly identified, and after adequate level of general anesthesia with a Cotter catheter in the bladder, the patient was already prepped and draped. Low transverse Pfannenstiel skin incision through the old scar was done. The Robert's fascia and rectus fascia were opened in direction of the incision. The 2 recti muscles were and then the bladder flap was raised in the usual manner and then low transverse uterine incision was done. I had to go through the placenta, which was covering the entire os and the lower uterine segment and then deliver the fetus in a breech presentation. There was no problem with the delivery. The fetus was handed to the account installation specialist and who is present at the time of delivery, for resuscitation and it cried immediately, and score and the weight is not available at the time of dictation. Placenta delivered spontaneous, complete, and intact and repair of the lower uterine segment was done with 2-0 Vicryl continuous interlocking in 2 layers. Reperitonealization done with 3-0 Vicryl continuous and then the peritoneal cavity evacuated completely from all blood and blood clot and closed with 3-0 Vicryl continuous. The rectus fascia was closed with #1 PDS continuous and Roebrt's fascia with 3-0 Vicryl continuous and the skin was closed with skin clips, Insorb, and Dermabond. Instrument and sponge count was correct. The patient tolerated the procedure well, went to recovery room in stable general condition. The patient received 2 unit of packed cells during the surgical procedures. TY / ABENA /[id number]
[2018-06-11] MEDS: Docusate Sodium 100 MG Cap PO SCH (20:00)
[2018-06-11] MEDS: Acetaminophen/oxyCODONE 325-5 MG Tab PO PRN (20:01)
[2018-06-12] MEDS: Ketorolac 30 MG/ML SDV IVPUSH SCH ×2 (04:56→11:42)
--- NOTE | 2018-06-12 08:25 | PCM.PNPP ---
- General Info Date of Service: 06/12/18 Functional Status: Reports: Pain Controlled - Review of Systems General: Reports: No Symptoms HEENT: Reports: No Symptoms Pulmonary: Reports: No Symptoms Cardiovascular: Reports: No Symptoms Gastrointestinal: Reports: No Symptoms Genitourinary: Reports: No Symptoms Musculoskeletal: Reports: No Symptoms Skin: Reports: No Symptoms Neurological: Reports: No Symptoms Psychiatric: Reports: No Symptoms - General Info Date of Service: 06/12/18 - Patient Data Vital Signs - Most Recent: Last Vital Signs Temp 36.8 C 06/12/18 07:10 Pulse 64 06/12/18 07:10 Resp 13 06/12/18 07:10 BP 101/55 L 06/12/18 07:10 Pulse Ox 97 06/12/18 07:10 Weight - Most Recent: 74.843 kg I&O - Last 24 Hours: Intake & Output 06/11/18 06/12/18 06/12/18 22:59 06:59 14:59 Intake Total 322 294 Output Total 175 1540 Balance 147 -1246 Lab Results - Last 24 Hours: Laboratory Results - last 24 hr 06/11/18 06/11/18 06/11/18 Range/Units 09:28 09:28 09:57 WBC 16.45 H (4.0-11.0) K/uL RBC 3.50 L (4.30-5.90) M/uL Hgb 8.7 L 8.6 L (12.0-16.0) g/dL Hct 27.9 L 27.9 L (36.0-46.0) % MCV 79.7 L (80.0-98.0) fL MCH 24.6 L (27.0-32.0) pg MCHC 30.8 L (31.0-37.0) g/dL RDW Std Deviation 43.1 (28.0-62.0) fl RDW Coeff of Toby 15 (11.0-15.0) % Plt Count 320 (150-400) K/uL MPV 9.80 (7.40-12.00) fL Neut % (Auto) 84.4 H (48.0-80.0) % Lymph % (Auto) 11.0 L (16.0-40.0) % Mchenry % (Auto) 4.5 (0.0-15.0) % Eos % (Auto) 0.0 (0.0-7.0) % Baso % (Auto) 0.1 (0.0-1.5) % Neut # (Auto) 13.9 H (1.4-5.7) K/uL Lymph # (Auto) 1.8 (0.6-2.4) K/uL Mchenry # (Auto) 0.7 (0.0-0.8) K/uL Eos # (Auto) 0.0 (0.0-0.7) K/uL Baso # (Auto) 0.0 (0.0-0.1) K/uL Nucleated RBC % 0.2 /100WBC Nucleated RBCs # 0 K/uL Blood Type B POSITIVE Antibody Screen NEGATIVE Crossmatch See Detail 06/11/18 06/12/18 Range/Units 14:59 06:30 WBC (4.0-11.0) K/uL RBC (4.30-5.90) M/uL Hgb 8.6 L 9.0 L (12.0-16.0) g/dL Hct 26.3 L 27.0 L (36.0-46.0) % MCV (80.0-98.0) fL MCH (27.0-32.0) pg MCHC (31.0-37.0) g/dL RDW Std Deviation (28.0-62.0) fl RDW Coeff of Toby (11.0-15.0) % Plt Count (150-400) K/uL MPV (7.40-12.00) fL Neut % (Auto) (48.0-80.0) % Lymph % (Auto) (16.0-40.0) % Mchenry % (Auto) (0.0-15.0) % Eos % (Auto) (0.0-7.0) % Baso % (Auto) (0.0-1.5) % Neut # (Auto) (1.4-5.7) K/uL Lymph # (Auto) (0.6-2.4) K/uL Mchenry # (Auto) (0.0-0.8) K/uL Eos # (Auto) (0.0-0.7) K/uL Baso # (Auto) (0.0-0.1) K/uL Nucleated RBC % /100WBC Nucleated RBCs # K/uL Blood Type Antibody Screen Crossmatch Med Orders - Current: Current Medications Albuterol (Proventil Neb Soln) 2.5 mg NEB ONETIME PRN PRN Reason: Wheezing Atropine Sulfate (Atropine 0.1 Mg/Ml) 0.5 mg IVPUSH ASDIRECTED PRN PRN Reason: Hypo-perfusion Atropine Sulfate (Atropine 0.1 Mg/Ml) 1 mg IVPUSH ASDIRECTED PRN PRN Reason: Hypo-Perfusion Bisacodyl (Dulcolax) 10 mg RECTAL ONETIME PRN PRN Reason: Constipation Dextrose/Water (Dextrose 50% In Water) 50 ml IVPUSH ASDIRECTED PRN PRN Reason: Hypoglycemia Diphenhydramine HCl (Benadryl) 25 mg IVPUSH Q6H PRN PRN Reason: Itching or Nausea Docusate Sodium (Colace) 100 mg PO BID [facility] Last Admin: 06/11/18 20:00 Dose: Not Given Emollient Ointment (Lansinoh Hpa) 0 gm TOP ASDIRECTED PRN PRN Reason: Sore Nipples Epinephrine HCl (Epinephrine 1:10,000) 1 mg IVPUSH ASDIRECTED PRN PRN Reason: ACLS Guidelines Fentanyl (Sublimaze) 50 - 100 mcg IVPUSH Q5M PRN PRN Reason: Pain Last Admin: 06/11/18 11:46 Dose: 50 mcg Oxytocin/Sodium Chloride (Oxytocin 30 Unit/500 Ml-Ns) 30 unit in 500 mls @ 250 mls/hr IV TITRATE [facility] Lactated Ringer's (Ringers, Lactated) 1,000 mls @ 500 mls/hr IV BOLUS [facility] Last Admin: 06/11/18 12:12 Dose: 500 mls/hr Lactated Ringer's (Ringers, Lactated) 1,000 mls @ 125 mls/hr IV ASDIRECTED [facility] Last Admin: 06/11/18 12:15 Dose: 125 mls/hr Ibuprofen (Motrin) 800 mg PO Q8H PRN PRN Reason: mild pain or fever Ketorolac Tromethamine (Toradol) 30 mg IVPUSH Q6H [facility] Stop: 06/12/18 11:16 Last Admin: 06/12/18 04:56 Dose: 30 mg Naloxone HCl (Narcan) 0.1 mg IVPUSH ASDIRECTED PRN PRN Reason: Respiratory Depression Ondansetron HCl (Zofran) 4 mg IVPUSH Q4H PRN PRN Reason: Nausea/Vomiting Ondansetron HCl (Zofran) 4 mg IVPUSH Q4H PRN PRN Reason: Nausea/Vomiting Oxycodone/Acetaminophen (Percocet 325-5 Mg) 1 tab PO Q4H PRN PRN Reason: Pain (moderate 4-6) Oxycodone/Acetaminophen (Percocet 325-5 Mg) 2 tab PO Q4H PRN PRN Reason: Pain (moderate 4-6) Last Admin: 06/11/18 20:01 Dose: 2 tab Sodium Chloride (Saline Flush) 10 ml FLUSH ASDIRECTED PRN PRN Reason: Keep Vein Open Sodium Chloride (Saline Flush) 2.5 ml FLUSH ASDIRECTED PRN PRN Reason: Keep Vein Open Sodium Chloride (Normal Saline) 10 ml IV ASDIRECTED PRN PRN Reason: IV Use Discontinued Medications Cefazolin Sodium (Ancef) Confirm Administered Dose 2 gm .ROUTE .STK-MED ONE Stop: 06/11/18 10:13 Citric Acid/Sodium Citrate (Bicitra Solution) 30 ml PO ONETIME ONE Stop: 06/11/18 10:26 Last Admin: 06/11/18 23:55 Dose: Not Given Ephedrine Sulfate (Ephedrine Sulfate) Confirm Administered Dose 50 mg .ROUTE .STK-MED ONE Stop: 06/11/18 10:13 Fentanyl (Sublimaze) Confirm Administered Dose 250 mcg .ROUTE .STK-MED ONE Stop: 06/11/18 10:30 Hydromorphone HCl (Dilaudid) Confirm Administered Dose 2 mg .ROUTE .STK-MED ONE Stop: 06/11/18 11:03 Sodium Chloride (Normal Saline) Confirm Administered Dose 20 mls @ as directed .ROUTE .STK-MED ONE Stop: 06/11/18 10:13 Sodium Chloride (Normal Saline) Confirm Administered Dose 20 mls @ as directed .ROUTE .STK-MED ONE Stop: 06/11/18 10:13 Midazolam HCl (Versed 1 Mg/Ml) Confirm Administered Dose 2 mg .ROUTE .STK-MED ONE Stop: 06/11/18 10:28 Morphine Sulfate (Duramorph Pf) Confirm Administered Dose 10 mg .ROUTE .STK-MED ONE Stop: 06/11/18 10:15 Octyl Cyanoacrylate (Dermabond Advance) Confirm Administered Dose 1 applic .ROUTE .STK-MED ONE Stop: 06/11/18 11:01 Last Admin: 06/11/18 23:55 Dose: Not Given Propofol (Diprivan 20 Ml) Confirm Administered Dose 200 mg .ROUTE .STK-MED ONE Stop: 06/11/18 10:16 Succinylcholine Chloride (Succinylcholine Chloride) Confirm Administered Dose 200 mg .ROUTE .STK-MED ONE Stop: 06/11/18 10:28 - Interaction Disposition, : tranfer Support Person: - Recovery Exam Fundal Tone: Firm Fundal Level: 1 Fingerbreadths Below Umbilicus Fundal Placement: Midline Lochia Amount: Small Lochia Color: Rubra/Red Perineum Description: Intact, Minimal Bruising/Swelling Episiotomy/Laceration: Approximated Bladder Status: Indwelling Catheter in Place - Exam General: Alert, Oriented HEENT: Pupils Equal Neck: Supple Lungs: Clear to Auscultation, Normal Respiratory Effort Cardiovascular: Regular Rate, Regular Rhythm GI/Abdominal Exam: Normal Bowel Sounds, Soft, Non-Tender, No Organomegaly, No Distention, No Abnormal Bruit, No Mass, Pelvis Stable Extremities: Normal Inspection, Normal Range of Motion, Non-Tender, No Pedal Edema, Normal Capillary Refill Skin: Warm, Dry, Intact Wound/Incisions: Healing Well Neurological: No New Focal Deficit Psy/Mental Status: Alert, Normal Affect, Normal Mood - Problem List Review Problem List Initiated/Reviewed/Updated: Yes - My Orders Last 24 Hours: My Active Orders 06/11/18 09:13 Up ad Ludy [RC] ASDIRECTED Resuscitation Status Routine 06/11/18 09:28 RED BLOOD CELLS LP [BBK] Routine TYPE AND SCREEN [BBK] Routine 06/11/18 10:25 Notify Provider Vital Signs [RC] PRN Ondansetron [Zofran] 4 mg IVPUSH Q4H PRN Sodium Chloride 0.9% [Normal Saline] 10 ml IV ASDIRECTED PRN Sodium Chloride 0.9% [Saline Flush] 10 ml FLUSH ASDIRECTED PRN Sodium Chloride 0.9% [Saline Flush] 2.5 ml FLUSH ASDIRECTED PRN 06/11/18 10:26 Peripheral IV Insertion Adult [OM.PC] Routine Schedule Procedure [COMM] Per Unit Routine 06/11/18 10:30 Lactated Ringers [Ringers, Lactated] 1,000 ml IV BOLUS Oxytocin/0.9 % Sodium Chloride [Oxytocin 30 Unit/500 ML-NS] 30 unit in 500 ml IV TITRATE 06/11/18 11:09 Patient Status [ADT] Routine Communication Order [RC] PER UNIT ROUTINE Communication Order [RC] PER UNIT ROUTINE Communication Order [RC] Per Unit Routine May Shower [RC] ASDIRECTED RT Incentive Spirometry [RC] Q2HWA Acetaminophen/oxyCODONE [Percocet 325-5 MG] 1 tab PO Q4H PRN Acetaminophen/oxyCODONE [Percocet 325-5 MG] 2 tab PO Q4H PRN Bisacodyl [Dulcolax] 10 mg RECTAL ONETIME PRN Ibuprofen [Motrin] 800 mg PO Q8H PRN Lanolin [Lansinoh HPA] See Dose Instructions TOP ASDIRECTED PRN Ondansetron [Zofran] 4 mg IVPUSH Q4H PRN diphenhydrAMINE [Benadryl] 25 mg IVPUSH Q6H PRN Assess Lochia [WOMSER] Per Unit Routine Assess Uterine Involution [WOMSER] Per Unit Routine Breast Pump [WOMSER] Per Unit Routine Peripheral IV Discontinue [OM.PC] Routine Sequential Compression Device [OM.PC] Per Unit Routine 06/11/18 11:10 Antiembolic Devices [RC] PER UNIT ROUTINE 06/11/18 11:15 Ketorolac [Toradol] 30 mg IVPUSH Q6H Lactated Ringers [Ringers, Lactated] 1,000 ml IV ASDIRECTED 06/11/18 21:00 Docusate Sodium [Colace] 100 mg PO BID 06/12/18 Breakfast Regular Diet [DIET] - Assessment Assessment:: Status post emergency section for bleeding placenta previa postoperative day #1 she is doing well her hematocrit after 4 units of transfusion is back to her preoperative level - Plan Plan:: * IUP 33+4 with complet placenta previa in active bleeding. will will do emergency repeat C/section.
[2018-06-12] MEDS: Docusate Sodium 100 MG Cap PO SCH ×2 (09:37→20:53)
[2018-06-12] MEDS: Ibuprofen 800 MG Tab PO PRN ×2 (11:31→20:54)
[2018-06-12] MEDS: Acetaminophen/oxyCODONE 325-5 MG Tab PO PRN ×3 (15:56→21:44)
--- NOTE | 2018-06-12 18:40 | PCM48HPAN ---
Post Anesthesia Note - EVALUATION WITHIN 48HRS OF ANESTHETIC Vital Signs in Normal Range: Yes Patient Participated in Evaluation: Yes Respiratory Function Stable: Yes Airway Patent: Yes Cardiovascular Function Stable: Yes Hydration Status Stable: Yes Pain Control Satisfactory: Yes Nausea and Vomiting Control Satisfactory: Yes Mental Status Recovered: Yes Pulse Rate: 112 SaO2: 96 Resp Rate: 16 Temperature: 97.3 F Blood Pressure: 110/66
[2018-06-13] MEDS: Ibuprofen 800 MG Tab PO PRN (06:10)
[2018-06-13] MEDS: Acetaminophen/oxyCODONE 325-5 MG Tab PO PRN (06:11)
[2018-06-13 07:52] VITALS: BP 99/60
--- NOTE | 2018-06-13 08:36 | PCM.SURGPN ---
- General Info Date of Service: 06/13/18 POD#: 1 Functional Status: Reports: Pain Controlled - Review of Systems General: Reports: No Symptoms HEENT: Reports: No Symptoms Pulmonary: Reports: No Symptoms Cardiovascular: Reports: No Symptoms Gastrointestinal: Reports: No Symptoms Genitourinary: Reports: No Symptoms Musculoskeletal: Reports: No Symptoms Skin: Reports: No Symptoms Neurological: Reports: No Symptoms Psychiatric: Reports: No Symptoms - Patient Data Vitals - Most Recent: Last Vital Signs Temp 36.6 C 06/13/18 07:40 Pulse 86 06/13/18 07:40 Resp 13 06/13/18 07:40 BP 99/60 06/13/18 07:40 Pulse Ox 97 06/13/18 07:40 Weight - Most Recent: 74.843 kg Med Orders - Current: Current Medications Albuterol (Proventil Neb Soln) 2.5 mg NEB ONETIME PRN PRN Reason: Wheezing Atropine Sulfate (Atropine 0.1 Mg/Ml) 0.5 mg IVPUSH ASDIRECTED PRN PRN Reason: Hypo-perfusion Atropine Sulfate (Atropine 0.1 Mg/Ml) 1 mg IVPUSH ASDIRECTED PRN PRN Reason: Hypo-Perfusion Bisacodyl (Dulcolax) 10 mg RECTAL ONETIME PRN PRN Reason: Constipation Dextrose/Water (Dextrose 50% In Water) 50 ml IVPUSH ASDIRECTED PRN PRN Reason: Hypoglycemia Diphenhydramine HCl (Benadryl) 25 mg IVPUSH Q6H PRN PRN Reason: Itching or Nausea Docusate Sodium (Colace) 100 mg PO BID [facility] Last Admin: 06/12/18 20:53 Dose: 100 mg Emollient Ointment (Lansinoh Hpa) 0 gm TOP ASDIRECTED PRN PRN Reason: Sore Nipples Epinephrine HCl (Epinephrine 1:10,000) 1 mg IVPUSH ASDIRECTED PRN PRN Reason: ACLS Guidelines Fentanyl (Sublimaze) 50 - 100 mcg IVPUSH Q5M PRN PRN Reason: Pain Last Admin: 06/11/18 11:46 Dose: 50 mcg Oxytocin/Sodium Chloride (Oxytocin 30 Unit/500 Ml-Ns) 30 unit in 500 mls @ 250 mls/hr IV TITRATE [facility] Lactated Ringer's (Ringers, Lactated) 1,000 mls @ 500 mls/hr IV BOLUS [facility] Last Admin: 06/11/18 12:12 Dose: 500 mls/hr Lactated Ringer's (Ringers, Lactated) 1,000 mls @ 125 mls/hr IV ASDIRECTED [facility] Last Admin: 06/11/18 12:15 Dose: 125 mls/hr Ibuprofen (Motrin) 800 mg PO Q8H PRN PRN Reason: mild pain or fever Last Admin: 06/13/18 06:10 Dose: 800 mg Naloxone HCl (Narcan) 0.1 mg IVPUSH ASDIRECTED PRN PRN Reason: Respiratory Depression Ondansetron HCl (Zofran) 4 mg IVPUSH Q4H PRN PRN Reason: Nausea/Vomiting Ondansetron HCl (Zofran) 4 mg IVPUSH Q4H PRN PRN Reason: Nausea/Vomiting Oxycodone/Acetaminophen (Percocet 325-5 Mg) 1 tab PO Q4H PRN PRN Reason: Pain (moderate 4-6) Last Admin: 06/12/18 21:44 Dose: 1 tab Oxycodone/Acetaminophen (Percocet 325-5 Mg) 2 tab PO Q4H PRN PRN Reason: Pain (moderate 4-6) Last Admin: 06/13/18 06:11 Dose: 2 tab Sodium Chloride (Saline Flush) 10 ml FLUSH ASDIRECTED PRN PRN Reason: Keep Vein Open Sodium Chloride (Saline Flush) 2.5 ml FLUSH ASDIRECTED PRN PRN Reason: Keep Vein Open Sodium Chloride (Normal Saline) 10 ml IV ASDIRECTED PRN PRN Reason: IV Use Discontinued Medications Cefazolin Sodium (Ancef) Confirm Administered Dose 2 gm .ROUTE .STK-MED ONE Stop: 06/11/18 10:13 Citric Acid/Sodium Citrate (Bicitra Solution) 30 ml PO ONETIME ONE Stop: 06/11/18 10:26 Last Admin: 06/11/18 23:55 Dose: Not Given Ephedrine Sulfate (Ephedrine Sulfate) Confirm Administered Dose 50 mg .ROUTE .STK-MED ONE Stop: 06/11/18 10:13 Fentanyl (Sublimaze) Confirm Administered Dose 250 mcg .ROUTE .STK-MED ONE Stop: 06/11/18 10:30 Hydromorphone HCl (Dilaudid) Confirm Administered Dose 2 mg .ROUTE .STK-MED ONE Stop: 06/11/18 11:03 Sodium Chloride (Normal Saline) Confirm Administered Dose 20 mls @ as directed .ROUTE .STK-MED ONE Stop: 06/11/18 10:13 Sodium Chloride (Normal Saline) Confirm Administered Dose 20 mls @ as directed .ROUTE .STK-MED ONE Stop: 06/11/18 10:13 Ketorolac Tromethamine (Toradol) 30 mg IVPUSH Q6H [facility] Stop: 06/12/18 11:16 Last Admin: 06/12/18 11:42 Dose: Not Given Midazolam HCl (Versed 1 Mg/Ml) Confirm Administered Dose 2 mg .ROUTE .STK-MED ONE Stop: 06/11/18 10:28 Morphine Sulfate (Duramorph Pf) Confirm Administered Dose 10 mg .ROUTE .STK-MED ONE Stop: 06/11/18 10:15 Octyl Cyanoacrylate (Dermabond Advance) Confirm Administered Dose 1 applic .ROUTE .[facility]-MED ONE Stop: 06/11/18 11:01 Last Admin: 06/11/18 23:55 Dose: Not Given Propofol (Diprivan 20 Ml) Confirm Administered Dose 200 mg .ROUTE .STK-MED ONE Stop: 06/11/18 10:16 Succinylcholine Chloride (Succinylcholine Chloride) Confirm Administered Dose 200 mg .ROUTE .ST-MED ONE Stop: 06/11/18 10:28 - Exam Wound/Incisions: Healing Well General: Alert, Oriented HEENT: Pupils Equal Neck: Supple Lungs: Clear to Auscultation, Normal Respiratory Effort Cardiovascular: Regular Rate, Regular Rhythm GI/Abdominal Exam: Normal Bowel Sounds, Soft, Non-Tender, No Organomegaly, No Distention, No Abnormal Bruit, No Mass, Pelvis Stable Extremities: Normal Inspection, Normal Range of Motion, Non-Tender, No Pedal Edema, Normal Capillary Refill Skin: Warm, Dry, Intact Neurological: No New Focal Deficit Psy/Mental Status: Alert, Normal Affect, Normal Mood - Problem List Review Problem List Initiated/Reviewed/Updated: Yes - My Orders Last 24 Hours: Medication Orders Albuterol (Proventil Neb Soln) 2.5 mg NEB ONETIME PRN PRN Reason: Wheezing Atropine Sulfate (Atropine 0.1 Mg/Ml) 0.5 mg IVPUSH ASDIRECTED PRN PRN Reason: Hypo-perfusion Atropine Sulfate (Atropine 0.1 Mg/Ml) 1 mg IVPUSH ASDIRECTED PRN PRN Reason: Hypo-Perfusion Bisacodyl (Dulcolax) 10 mg RECTAL ONETIME PRN PRN Reason: Constipation Dextrose/Water (Dextrose 50% In Water) 50 ml IVPUSH ASDIRECTED PRN PRN Reason: Hypoglycemia Diphenhydramine HCl (Benadryl) 25 mg IVPUSH Q6H PRN PRN Reason: Itching or Nausea Docusate Sodium (Colace) 100 mg PO BID [facility] Last Admin: 06/12/18 20:53 Dose: 100 mg Admin: 06/12/18 09:37 Dose: 100 mg Admin: 06/11/18 20:00 Dose: Not Given Emollient Ointment (Lansinoh Hpa) 0 gm TOP ASDIRECTED PRN PRN Reason: Sore Nipples Epinephrine HCl (Epinephrine 1:10,000) 1 mg IVPUSH ASDIRECTED PRN PRN Reason: ACLS Guidelines Fentanyl (Sublimaze) 50 - 100 mcg IVPUSH Q5M PRN PRN Reason: Pain Last Admin: 06/11/18 11:46 Dose: 50 mcg Admin: 06/11/18 11:37 Dose: 50 mcg Oxytocin/Sodium Chloride (Oxytocin 30 Unit/500 Ml-Ns) 30 unit in 500 mls @ 250 mls/hr IV TITRATE [facility] Lactated Ringer's (Ringers, Lactated) 1,000 mls @ 500 mls/hr IV BOLUS [facility] Last Admin: 06/11/18 12:12 Dose: 500 mls/hr Infusion: 06/11/18 12:00 Dose: 500 mls/hr Admin: 06/11/18 10:00 Dose: 500 mls/hr Lactated Ringer's (Ringers, Lactated) 1,000 mls @ 125 mls/hr IV ASDIRECTED [facility] Last Admin: 06/11/18 12:15 Dose: 125 mls/hr Ibuprofen (Motrin) 800 mg PO Q8H PRN PRN Reason: mild pain or fever Last Admin: 06/13/18 06:10 Dose: 800 mg Admin: 06/12/18 20:54 Dose: 800 mg Admin: 06/12/18 11:31 Dose: 800 mg Naloxone HCl (Narcan) 0.1 mg IVPUSH ASDIRECTED PRN PRN Reason: Respiratory Depression Ondansetron HCl (Zofran) 4 mg IVPUSH Q4H PRN PRN Reason: Nausea/Vomiting Ondansetron HCl (Zofran) 4 mg IVPUSH Q4H PRN PRN Reason: Nausea/Vomiting Oxycodone/Acetaminophen (Percocet 325-5 Mg) 1 tab PO Q4H PRN PRN Reason: Pain (moderate 4-6) Last Admin: 06/12/18 21:44 Dose: 1 tab Admin: 06/12/18 20:53 Dose: 1 tab Admin: 06/12/18 15:56 Dose: 1 tab Oxycodone/Acetaminophen (Percocet 325-5 Mg) 2 tab PO Q4H PRN PRN Reason: Pain (moderate 4-6) Last Admin: 06/13/18 06:11 Dose: 2 tab Admin: 06/11/18 20:01 Dose: 2 tab Sodium Chloride (Saline Flush) 10 ml FLUSH ASDIRECTED PRN PRN Reason: Keep Vein Open Sodium Chloride (Saline Flush) 2.5 ml FLUSH ASDIRECTED PRN PRN Reason: Keep Vein Open Sodium Chloride (Normal Saline) 10 ml IV ASDIRECTED PRN PRN Reason: IV Use - Assessment Assessment (Free Text/Narrative):: S/P c/section doing well - Plan Plan (Free Text/Narrative):: Pt may go home today.
--- NOTE | 2018-06-13 08:38 | PCM.DCSUM1 ---
Discharge Summary - Hospital Course Diagnosis: Stroke: No - Discharge Data Discharge Date: 06/13/18 Discharge Disposition: Home, Self-Care 01 Condition: Good - Patient Summary/Data Operative Procedure(s) Performed: Emergency C/section. - Patient Instructions Diet: Usual Diet as Tolerated Activity: As Tolerated Driving: Do Not Drive - Discharge Plan Home Medications: Home Meds [id number]/Ferrous Fumarate/FA [ Tablet] 03/04/17 [History] Referrals: [facility] [Outside] Rafa Silvestre MD [Physician] - (1 week- June 19@ 10:00am w/ Dr. Silvestre 6 week- July 24 @10:45am w/ Dr. Silvestre ) - Discharge Summary/Plan Comment DC Time >30 min.: Yes - General Info Date of Service: 06/13/18 Functional Status: Reports: Pain Controlled - Review of Systems General: Reports: No Symptoms HEENT: Reports: No Symptoms Pulmonary: Reports: No Symptoms Cardiovascular: Reports: No Symptoms Gastrointestinal: Reports: No Symptoms Genitourinary: Reports: No Symptoms Musculoskeletal: Reports: No Symptoms Skin: Reports: No Symptoms Neurological: Reports: No Symptoms Psychiatric: Reports: No Symptoms - Patient Data Vitals - Most Recent: Last Vital Signs Temp 36.6 C 06/13/18 07:40 Pulse 86 06/13/18 07:40 Resp 13 06/13/18 07:40 BP 99/60 06/13/18 07:40 Pulse Ox 97 06/13/18 07:40 Weight - Most Recent: 74.843 kg Med Orders - Current: Current Medications Albuterol (Proventil Neb Soln) 2.5 mg NEB ONETIME PRN PRN Reason: Wheezing Atropine Sulfate (Atropine 0.1 Mg/Ml) 0.5 mg IVPUSH ASDIRECTED PRN PRN Reason: Hypo-perfusion Atropine Sulfate (Atropine 0.1 Mg/Ml) 1 mg IVPUSH ASDIRECTED PRN PRN Reason: Hypo-Perfusion Bisacodyl (Dulcolax) 10 mg RECTAL ONETIME PRN PRN Reason: Constipation Dextrose/Water (Dextrose 50% In Water) 50 ml IVPUSH ASDIRECTED PRN PRN Reason: Hypoglycemia Diphenhydramine HCl (Benadryl) 25 mg IVPUSH Q6H PRN PRN Reason: Itching or Nausea Docusate Sodium (Colace) 100 mg PO BID [facility] Last Admin: 06/12/18 20:53 Dose: 100 mg Emollient Ointment (Lansinoh Hpa) 0 gm TOP ASDIRECTED PRN PRN Reason: Sore Nipples Epinephrine HCl (Epinephrine 1:10,000) 1 mg IVPUSH ASDIRECTED PRN PRN Reason: ACLS Guidelines Fentanyl (Sublimaze) 50 - 100 mcg IVPUSH Q5M PRN PRN Reason: Pain Last Admin: 06/11/18 11:46 Dose: 50 mcg Oxytocin/Sodium Chloride (Oxytocin 30 Unit/500 Ml-Ns) 30 unit in 500 mls @ 250 mls/hr IV TITRATE [facility] Lactated Ringer's (Ringers, Lactated) 1,000 mls @ 500 mls/hr IV BOLUS [facility] Last Admin: 06/11/18 12:12 Dose: 500 mls/hr Lactated Ringer's (Ringers, Lactated) 1,000 mls @ 125 mls/hr IV ASDIRECTED [facility] Last Admin: 06/11/18 12:15 Dose: 125 mls/hr Ibuprofen (Motrin) 800 mg PO Q8H PRN PRN Reason: mild pain or fever Last Admin: 06/13/18 06:10 Dose: 800 mg Naloxone HCl (Narcan) 0.1 mg IVPUSH ASDIRECTED PRN PRN Reason: Respiratory Depression Ondansetron HCl (Zofran) 4 mg IVPUSH Q4H PRN PRN Reason: Nausea/Vomiting Ondansetron HCl (Zofran) 4 mg IVPUSH Q4H PRN PRN Reason: Nausea/Vomiting Oxycodone/Acetaminophen (Percocet 325-5 Mg) 1 tab PO Q4H PRN PRN Reason: Pain (moderate 4-6) Last Admin: 06/12/18 21:44 Dose: 1 tab Oxycodone/Acetaminophen (Percocet 325-5 Mg) 2 tab PO Q4H PRN PRN Reason: Pain (moderate 4-6) Last Admin: 06/13/18 06:11 Dose: 2 tab Sodium Chloride (Saline Flush) 10 ml FLUSH ASDIRECTED PRN PRN Reason: Keep Vein Open Sodium Chloride (Saline Flush) 2.5 ml FLUSH ASDIRECTED PRN PRN Reason: Keep Vein Open Sodium Chloride (Normal Saline) 10 ml IV ASDIRECTED PRN PRN Reason: IV Use Discontinued Medications Cefazolin Sodium (Ancef) Confirm Administered Dose 2 gm .ROUTE .[facility]-MED ONE Stop: 06/11/18 10:13 Citric Acid/Sodium Citrate (Bicitra Solution) 30 ml PO ONETIME ONE Stop: 06/11/18 10:26 Last Admin: 06/11/18 23:55 Dose: Not Given Ephedrine Sulfate (Ephedrine Sulfate) Confirm Administered Dose 50 mg .ROUTE .[facility]-MED ONE Stop: 06/11/18 10:13 Fentanyl (Sublimaze) Confirm Administered Dose 250 mcg .ROUTE .ST-MED ONE Stop: 06/11/18 10:30 Hydromorphone HCl (Dilaudid) Confirm Administered Dose 2 mg .ROUTE .[facility]-MED ONE Stop: 06/11/18 11:03 Sodium Chloride (Normal Saline) Confirm Administered Dose 20 mls @ as directed .ROUTE .[facility]-MED ONE Stop: 06/11/18 10:13 Sodium Chloride (Normal Saline) Confirm Administered Dose 20 mls @ as directed .ROUTE .[facility] Stop: 06/11/18 10:13 Ketorolac Tromethamine (Toradol) 30 mg IVPUSH Q6H DANAE Stop: 06/12/18 11:16 Last Admin: 06/12/18 11:42 Dose: Not Given Midazolam HCl (Versed 1 Mg/Ml) Confirm Administered Dose 2 mg .ROUTE .[facility] Stop: 06/11/18 10:28 Morphine Sulfate (Duramorph Pf) Confirm Administered Dose 10 mg .ROUTE .[facility] Stop: 06/11/18 10:15 Octyl Cyanoacrylate (Dermabond Advance) Confirm Administered Dose 1 applic .ROUTE .[facility] Stop: 06/11/18 11:01 Last Admin: 06/11/18 23:55 Dose: Not Given Propofol (Diprivan 20 Ml) Confirm Administered Dose 200 mg .ROUTE .[facility] Stop: 06/11/18 10:16 Succinylcholine Chloride (Succinylcholine Chloride) Confirm Administered Dose 200 mg .ROUTE .[facility] ONE Stop: 06/11/18 10:28 - Exam General: Reports: Alert, Oriented HEENT: Reports: Pupils Equal, Pupils Reactive, EOMI, Mucous Membr. Moist/Brave Neck: Reports: Supple Lungs: Reports: Clear to Auscultation, Normal Respiratory Effort Cardiovascular: Reports: Regular Rate, Regular Rhythm GI/Abdominal Exam: Normal Bowel Sounds, Soft, Non-Tender, No Organomegaly, No Distention, No Abnormal Bruit, No Mass, Pelvis Stable (Female) Exam: Normal External Exam, Normal Speculum Exam, Normal Bimanual Exam Rectal (Female) Exam: Normal Exam, Normal Rectal Tone Back Exam: Reports: Normal Inspection, Full Range of Motion Extremities: Normal Inspection, Normal Range of Motion, Non-Tender, No Pedal Edema, Normal Capillary Refill Skin: Reports: Warm, Dry, Intact Wound/Incisions: Reports: Healing Well Neurological: Reports: No New Focal Deficit Psy/Mental Status: Reports: Alert, Normal Affect, Normal Mood
[2018-06-13] MEDS: Docusate Sodium 100 MG Cap PO SCH (10:13)
== END 2018-06-13 10:20 | disposition home or self-care (01) | DRG 540 ==
LOC: MW.OB 08:56 → MW.OBCHECK 08:56 → MW.OB 10:25
PROVIDERS: ADMIT Obstetrics & Gynecology; ATTEND Obstetrics & Gynecology
PROC: 10D00Z1 Extraction of Products of Conception, Low, Open Approach (ICD-10-PCS; principal; 2018-06-11)
PROC: 30233N1 Transfusion of Nonautologous Red Blood Cells into Peripheral Vein, Percutaneous Approach (ICD-10-PCS; 2018-06-11)
DX: O44.13 Complete placenta previa with hemorrhage, third trimester (principal); O99.214 Obesity complicating childbirth; E66.9 Obesity, unspecified; O99.62 Diseases of the digestive system complicating childbirth; K21.9 Gastro-esophageal reflux disease without esophagitis; O99.354 Diseases of the nervous system complicating childbirth; G43.909 Migraine, unspecified, not intractable, without status migrainosus; Z3A.33 33 weeks gestation of pregnancy; Z37.0 Single live birth; O34.211 Maternal care for low transverse scar from previous cesarean delivery; N85.8 Other specified noninflammatory disorders of uterus; O32.1XX0 Maternal care for breech presentation, not applicable or unspecified
CPT/HCPCS: 36415; 59025; 85014; 85018; 85025; 88307; A9270-GY; J0330; J0690; J1170; J1885; J2250; J2270; J2704; J3010; J7120; P9016

== ENCOUNTER 2020-10-01 18:53 | Inpatient (IN) | payer BC ==
[2020-10-01] MEDS ORDERED: Sodium Chloride 0.9% 1,000 ML IV ONE (19:32)
[2020-10-01] MEDS ORDERED: Ondansetron 4 MG/2 ML SDV IVPUSH ONE (19:36)
[2020-10-01] MEDS ORDERED: Morphine 2 MG/ML SYRINGE IVPUSH ONE (19:36)
--- NOTE | 2020-10-01 19:36 | EDM.PDOC ---
ED HPI GENERAL MEDICAL PROBLEM - General Chief Complaint: Abdominal Pain Stated Complaint: LOWER RT QUADRANT PAIN Time Seen by Provider: 10/01/20 19:28 Source of Information: Reports: Patient History Limitations: Reports: No Limitations - History of Present Illness INITIAL COMMENTS - FREE TEXT/NARRATIVE: HISTORY AND PHYSICAL: History of present illness: Patient is a 34-year-old female who presents to the emergency room with complaints of right middle/right lower quadrant abdominal pain, nausea and vomiting since this afternoon. Pain does not radiate. Not associated with f ood. Patient denies any fever, chills, headache, change in vision, syncope or near syncope. Denies any chest pain, back pain, shortness of breath or cough. Denies any diarrhea, constipation or dysuria. Has not noted any blood in urine or stool. Patient has been eating and drinking appropriately. Review of systems: As per history of present illness and below otherwise all systems reviewed and negative. Past medical history: As per history of present illness and as reviewed below otherwise noncontributory. Surgical history: As per history of present illness and as reviewed below otherwise noncontributory. Social history: See social history for further information Family history: As per history of present illness and as reviewed below otherwise noncontributory. Physical exam: General: Well developed and well nourished 24-year-old female. Alert and orientated x 3. Nontoxic in appearance and in no acute distress. Vital signs are stable and have been reviewed by me. Nursing notes were reviewed. HEENT: Atraumatic, normocephalic, pupils equal and reactive bilaterally, negative for conjunctival pallor or scleral icterus, mucous membranes moist, trachea midline. No drooling or trismus noted. No meningeal signs. No hot potato voice noted. Lungs: Clear to auscultation bilaterally. No wheezes, rales, or rhonchi. Chest nontender. Normal work of breathing, no accessory muscles used. Heart: S1S2, regular rate and rhythm without overt murmur, gallops, or rubs. No JVD. No peripheral edema Abdomen: Soft, nondistended, right mid abdominal tenderness. No rebound tenderness. Normoactive bowel sounds. Negative for masses. Negative costovertebral tenderness. Skin: Intact, warm, dry. No lesions or rashes noted. Hematologic: No petechiae or purpra. Mucosa appropriate color and normal nail bed color and refill. Extremities: Atraumatic, moves all extremities per self without difficulty or deficits, negative for cords or calf pain. Neurovascular unremarkable. Neuro: Awake, alert, oriented. Cranial nerves II through XII unremarkable. Cerebellum unremarkable. Motor and sensory unremarkable throughout. Exam nonfocal. Psychiatric: Mood and affect are appropriate. Normal thought process. Answering questions appropriately. Please note that the patient was seen and evaluated during the 2019 SARS-CoV-2 novel coronavirus pandemic period. Community viral transmission is ongoing at time of this encounter and the emergency department is operating under pandemic response procedures. Medical Decision Making: Patient is a 24-year-old female who presents to the emergency room with complaints of right lower quadrant pain, nausea, vomiting since this afternoon. She states the pain is located in her right lower quadrant although she is grabbing at her right mid abdomen. No rebound tenderness is noticed. We will do basic lab work, IV fluids and medications at this time. Patient does have a leukocytosis along with a UTI. CT of the abdomen shows focal lobar nephronia involving the lateral aspect of the lower pole of the right kidney, without distinct renal abscess. Additional findings of pyelonephritis involving the interpolar region and lower pole of the right kidney. Normal CT of the pelvis with contrast. I cannot definitely identify the appendix. I did talk with Dr. North, urologist at [facility] in [place]. We reviewed the patient's CT along with lab work. Patient does not need to be transferred to a urologist at this time. Does recommend that the patient be admitted to hospitalist for IV antibiotics for 1 to 3 days and discharged to home on outpatient oral antibiotics for the next 3 to 4 weeks. I have talked with the patient about today's findings, in addition to providing specific details for plan of care. She is agreeable for admission. Dr Ortiz, hospitalist on-call, is aware of this patient and agreeable to keeping her for further care and management. Diagnostics: CBC, CMP, UA, urine , CT abdomen and pelvis Therapeutics: IV fluid, Zofran, morphine, Cipro Impression: Nephronia, right Pyelonephritis, right Plan: MedSurg admission, inpatient Definitive disposition and diagnosis as appropriate pending reevaluation and review of above. 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: Musculoskeletal History: Reports: None Neurological History: Reports: Migraines Other Neuro History: Pt states hx migraines x1 year Psychiatric History: Reports: None Endocrine/Metabolic History: Reports: Obesity/BMI 30+ Hematologic History: Reports: None Immunologic History: Reports: None Oncologic (Cancer) History: Reports: None Dermatologic History: Reports: None - Infectious Disease History Infectious Disease History: Reports: Chicken Pox, Shingles - Past Surgical History HEENT Surgical History: Reports: Oral Surgery, Tonsillectomy Other HEENT Surgeries/Procedures: wisdom teeth extraction GI Surgical History: Reports: None Female Surgical History: Reports: Section Neurological Surgical History: Reports: None Social & Family History - Family History Family Medical History: No Pertinent Family History OBGYN: Reports: Neurological: Reports: CVA Oncologic: Reports: Ovarian - Tobacco Use Tobacco Use Status *Q: Never Tobacco User - Caffeine Use Caffeine Use: Reports: Coffee, Tea - Recreational Drug Use Recreational Drug Use: No ED ROS GENERAL - Review of Systems Review Of Systems: Comprehensive ROS is negative, except as noted in HPI. ED EXAM, GI/ABD - Physical Exam Exam: See Below (See dictation) Course - Vital Signs Last Recorded V/S: Last Vital Signs Temp 98.1 F 10/01/20 19:29 Pulse 97 10/01/20 19:29 Resp 16 10/01/20 19:29 BP 100/69 10/01/20 19:29 Pulse Ox 100 10/01/20 19:29 - Orders/Labs/Meds Orders: Active Orders 24 hr Category Date Time Status Admission Status [Patient Status] [ADT] Stat ADT 10/01/20 21:29 Ordered Ciprofloxacin in D5W [Cipro in D5W 400 MG/200 ML] 400 Med 10/01/20 21:45 Ordered mg Premix Bag 1 bag IV Q12H Medication Orders Ciprofloxacin/Dextrose 400 mg/ (Premix) 200 mls @ 200 mls/hr IV Q12H DANAE Labs: Laboratory Tests 10/01/20 10/01/20 10/01/20 Range/Units 19:30 19:30 19:40 WBC 11.02 H (4.0-11.0) K/uL RBC 4.62 (4.30-5.90) M/uL Hgb 12.5 (12.0-16.0) g/dL Hct 38.5 (36.0-46.0) % MCV 83.3 (80.0-98.0) fL MCH 27.1 (27.0-32.0) pg MCHC 32.5 (31.0-37.0) g/dL RDW Std Deviation 41.3 (28.0-62.0) fl RDW Coeff of Toby 14 (11.0-15.0) % Plt Count 274 (150-400) K/uL MPV 9.50 (7.40-12.00) fL Neut % (Auto) 73.9 (48.0-80.0) % Lymph % (Auto) 21.8 (16.0-40.0) % [place] % (Auto) 4.0 (0.0-15.0) % Eos % (Auto) 0.2 (0.0-7.0) % Baso % (Auto) 0.1 (0.0-1.5) % Neut # (Auto) 8.2 H (1.4-5.7) K/uL Lymph # (Auto) 2.4 (0.6-2.4) K/uL [place] # (Auto) 0.4 (0.0-0.8) K/uL Eos # (Auto) 0.0 (0.0-0.7) K/uL Baso # (Auto) 0.0 (0.0-0.1) K/uL Nucleated RBC % 0.0 /100WBC Nucleated RBCs # 0 K/uL Sodium (136-145) mmol/L Potassium (3.5-5.1) mmol/L Chloride (98-107) mmol/L Carbon Dioxide (21.0-32.0) mmol/L BUN (7.0-18.0) mg/dL Creatinine (0.6-1.0) mg/dL Est Cr Clr Drug Dosing mL/min Estimated GFR (MDRD) ml/min Glucose (74-106) mg/dL Calcium (8.5-10.1) mg/dL Total Bilirubin (0.2-1.0) mg/dL AST (15-37) IU/L ALT (14-63) IU/L Alkaline Phosphatase (46-116) U/L Total Protein (6.4-8.2) g/dL Albumin (3.4-5.0) g/dL Globulin (2.6-4.0) g/dL Albumin/Globulin Ratio (0.9-1.6) Lipase (73-393) U/L Urine Color YELLOW Urine Appearance SLT CLOUDY Urine pH 6.0 (5.0-8.0) Ur Specific [place] >= 1.030 (1.001-1.035) Urine Protein TRACE H (NEGATIVE) mg/dL Urine Glucose (UA) NEGATIVE (NEGATIVE) mg/dL Urine Ketones TRACE H (NEGATIVE) mg/dL Urine Occult Blood NEGATIVE (NEGATIVE) Urine Nitrite NEGATIVE (NEGATIVE) Urine Bilirubin SMALL H (NEGATIVE) Urine Urobilinogen 0.2 (<2.0) EU/dL Ur Leukocyte Esterase NEGATIVE (NEGATIVE) Urine RBC 0-2 (0-2/HPF) Urine WBC 1-5 (0-5/HPF) Ur Epithelial Cells MODERATE (NONE-FEW) Urine Bacteria 1+ H (NEGATIVE) Urine Mucus MODERATE (NONE-MOD) Urinalysis Comment Urine HCG, Qual NEGATIVE (NEGATIVE) SARS-CoV-2 RNA (VALDO) (NEGATIVE) 10/01/20 10/01/20 Range/Units 19:40 19:40 WBC (4.0-11.0) K/uL RBC (4.30-5.90) M/uL Hgb (12.0-16.0) g/dL Hct (36.0-46.0) % MCV (80.0-98.0) fL MCH (27.0-32.0) pg MCHC (31.0-37.0) g/dL RDW Std Deviation (28.0-62.0) fl RDW Coeff of Toby (11.0-15.0) % Plt Count (150-400) K/uL MPV (7.40-12.00) fL Neut % (Auto) (48.0-80.0) % Lymph % (Auto) (16.0-40.0) % [place] % (Auto) (0.0-15.0) % Eos % (Auto) (0.0-7.0) % Baso % (Auto) (0.0-1.5) % Neut # (Auto) (1.4-5.7) K/uL Lymph # (Auto) (0.6-2.4) K/uL [place] # (Auto) (0.0-0.8) K/uL Eos # (Auto) (0.0-0.7) K/uL Baso # (Auto) (0.0-0.1) K/uL Nucleated RBC % /100WBC Nucleated RBCs # K/uL Sodium 139 (136-145) mmol/L Potassium 4.0 (3.5-5.1) mmol/L Chloride 102 (98-107) mmol/L Carbon Dioxide 25.5 (21.0-32.0) mmol/L BUN 10 (7.0-18.0) mg/dL Creatinine 1.0 (0.6-1.0) mg/dL Est Cr Clr Drug Dosing 61.23 mL/min Estimated GFR (MDRD) > 60.0 ml/min Glucose 97 (74-106) mg/dL Calcium 8.9 (8.5-10.1) mg/dL Total Bilirubin 0.9 (0.2-1.0) mg/dL AST 25 (15-37) IU/L ALT 26 (14-63) IU/L Alkaline Phosphatase 64 (46-116) U/L Total Protein 8.0 (6.4-8.2) g/dL Albumin 3.7 (3.4-5.0) g/dL Globulin 4.3 H (2.6-4.0) g/dL Albumin/Globulin Ratio 0.9 (0.9-1.6) Lipase 89 (73-393) U/L Urine Color Urine Appearance Urine pH (5.0-8.0) Ur Specific [place] (1.001-1.035) Urine Protein (NEGATIVE) mg/dL Urine Glucose (UA) (NEGATIVE) mg/dL Urine Ketones (NEGATIVE) mg/dL Urine Occult Blood (NEGATIVE) Urine Nitrite (NEGATIVE) Urine Bilirubin (NEGATIVE) Urine Urobilinogen (<2.0) EU/dL Ur Leukocyte Esterase (NEGATIVE) Urine RBC (0-2/HPF) Urine WBC (0-5/HPF) Ur Epithelial Cells (NONE-FEW) Urine Bacteria (NEGATIVE) Urine Mucus (NONE-MOD) Urinalysis Comment Urine HCG, Qual (NEGATIVE) SARS-CoV-2 RNA (VALDO) NEGATIVE (NEGATIVE) Meds: Medications Generic Name Dose Route Start Last Admin Trade Name Freq PRN Reason Stop Dose Admin Ciprofloxacin/Dextrose 400 mg/ 200 mls @ 200 mls/hr 10/01/20 21:45 Premix IV Q12H DANAE Discontinued Medications Generic Name Dose Route Start Last Admin Trade Name Freq PRN Reason Stop Dose Admin Sodium Chloride 1,000 mls @ 999 mls/hr 10/01/20 19:32 10/01/20 19:34 Normal Saline IV 10/01/20 20:32 999 mls/hr STAT ONE Administration Iopamidol 75 ml 10/01/20 20:23 10/01/20 20:25 Iopamidol 755 Mg/Ml 500 Ml Multipack Bottle IVPUSH 10/01/20 20:24 75 ml ONETIME STA Administration Morphine Sulfate 2 mg 10/01/20 19:36 10/01/20 19:50 Morphine 2 Mg/Ml Syringe IVPUSH 10/01/20 19:37 2 mg ONETIME ONE Administration Ondansetron HCl 4 mg 10/01/20 19:36 10/01/20 19:49 Ondansetron 4 Mg/2 Ml Sdv IVPUSH 10/01/20 19:37 4 mg ONETIME ONE Administration Departure - Departure Time of Disposition: 21:33 Disposition: Admitted As Inpatient 64 Clinical Impression: Pyelonephritis of right kidney - Discharge Information Referrals: Lissa Villavicencio MD [Primary Care Provider] - Forms: ED Department Discharge Sepsis Event Note (ED) - Focused Exam Vital Signs: Vital Signs Temp Pulse Resp BP Pulse Ox 10/01/20 19:29 98.1 F 97 16 100/69 100 - My Orders Last 24 Hours: My Active Orders 10/01/20 21:29 Admission Status [Patient Status] [ADT] Stat 10/01/20 21:45 Ciprofloxacin in D5W [Cipro in D5W 400 MG/200 ML] 400 mg Premix Bag 1 bag IV Q12H - Assessment/Plan Last 24 Hours: My Active Orders 10/01/20 21:29 Admission Status [Patient Status] [ADT] Stat 10/01/20 21:45 Ciprofloxacin in D5W [Cipro in D5W 400 MG/200 ML] 400 mg Premix Bag 1 bag IV Q12H
[2020-10-01 20:08] LABS: BLOOD UREA NITROGEN,BUN 10 mg/dL (7.0-18.0); CARBON DIOXIDE,CO2 25.5 mmol/L (21.0-32.0); CHLORIDE,CL 102 mmol/L (98-107); GLUCOSE RANDOM 97 mg/dL (74-106); LIPASE 89 U/L (73-393); SODIUM,NA 139 mmol/L (136-145)
[2020-10-01] MEDS ORDERED: Iopamidol 755 MG/ML 500 ML Multipack Bottle IVPUSH STA (20:23)
--- NOTE | 2020-10-01 21:12 | CT ---
INDICATION: Right lower quadrant pain. COMPARISON: None available TECHNIQUE: CT examination of the abdomen and pelvis was performed with the uneventful intravenous administration of 75 cc of Isovue 370 while 2.5 mm thick axial sections were obtained from the lung bases through the pubic symphysis. Oral contrast was not administered. Please note that all CT scans at this facility use dose modulation, iterative reconstruction, and/or weight-based dosing when appropriate to reduce radiation dose to as low as reasonably achievable. FINDINGS: In the abdomen, the liver, spleen, pancreas, and adrenals are normal in appearance. There is a focal area of decreased enhancement in the lateral lower pole of the right kidney, along with milder, streaky areas of decreased enhancement scattered throughout the lower pole and interpolar region of the right kidney. The findings are that of pyelonephritis with focal lobar nephronia. No distinct abscess is evident. The left kidney is normal in appearance with normal cortical enhancement. There is no sign of urinary system calculus or obstruction on either side. The gallbladder is normal in appearance. The abdominal aorta is normal in caliber with no sign of dilatation. There is no sign of retroperitoneal mass or adenopathy. The stomach, loops of small bowel, and colon in the abdomen are normal in appearance. In the pelvis, the appendix is nonvisualized, but there is no sign of an inflammatory process in the area of the appendix. The loops of small bowel and colon in the pelvis are normal in appearance. The uterus and adnexal regions are normal in appearance. The urinary bladder is normal in appearance. There is no sign of pelvic or inguinal mass or adenopathy. There is no sign of free air or free fluid in the abdomen or pelvis. The lung bases are clear. The osseous structures are normal in appearance for the patient`s age. IMPRESSION: CT of the abdomen shows focal lobar nephronia involving the lateral aspect of the lower pole of the right kidney, without distinct renal abscess. Additional findings of pyelonephritis involving the interpolar region and lower pole of the right kidney. Normal CT of the pelvis with contrast. I cannot definitely identify the appendix. Please note that all CT scans at this facility use dose modulation, iterative reconstruction, and/or weight-based dosing when appropriate to reduce radiation dose to as low as reasonably achievable. Dictated by Gil Castellon MD @ 10/01/2020 9:12:[address] Gil Castellon @ Oct 01 2020 9:12PM
[2020-10-01] MEDS ORDERED: Ciprofloxacin in D5W 400 MG in Premix Bag 1 BAG IV SCH ×2 (21:45)
[2020-10-01] MEDS ORDERED: HYDROmorphone 1 MG/ML Syringe IVPUSH ONE (21:56)
--- NOTE | 2020-10-01 23:34 | PCM.HP.2 ---
H&P History of Present Illness - General Date of Service: 10/02/20 Admit Problem/Dx: Admission Diagnosis/Problem Admission Diagnosis/Problem Pyelonephritis - History of Present Illness Initial Comments - Free Text/Narative: 24 yo female who presents with one day history of right flank pain, nausea and vomiting. PAtietn denies any fevers, chills, or diarrhea. 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 Pain Score (Numeric/FACES): 8 - Related Data Allergies/Adverse Reactions: Allergies Allergy/AdvReac Type Severity Reaction Status Date / Time No Known Allergies Allergy Verified 10/01/20 22:47 Home Medications: Home Meds Acetaminophen [Tylenol Extra Strength] 500 mg PO ASDIRECTED PRN 10/01/20 [History] Ciprofloxacin [Ciprofloxacin HCl] 500 mg PO BID #42 tab 10/03/20 [Rx] Ethinyl Estradiol/Drospirenone [Loryna 3 MG-0.02 MG] 1 tab PO DAILY 10/03/20 [History] Past Medical History - Past Health History Medical/Surgical History: Denies Medical/Surgical History HEENT History: Reports: None Cardiovascular History: Reports: None Respiratory History: Reports: None Gastrointestinal History: Reports: GERD, Other (See Below) Other Gastrointestinal History: acid reflux Genitourinary History: Reports: None 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: Musculoskeletal History: Reports: None Neurological History: Reports: Migraines Other Neuro History: Pt states hx migraines x1 year Psychiatric History: Reports: None Endocrine/Metabolic History: Reports: Obesity/BMI 30+ Hematologic History: Reports: None Immunologic History: Reports: None Oncologic (Cancer) History: Reports: None Dermatologic History: Reports: None - Infectious Disease History Infectious Disease History: Reports: Chicken Pox, Shingles - Past Surgical History HEENT Surgical History: Reports: Oral Surgery, Tonsillectomy Other HEENT Surgeries/Procedures: wisdom teeth extraction GI Surgical History: Reports: None Female Surgical History: Reports: Section Neurological Surgical History: Reports: None Social & Family History - Family History Family Medical History: No Pertinent Family History OBGYN: Reports: Neurological: Reports: CVA Oncologic: Reports: Ovarian - Tobacco Use Tobacco Use Status *Q: Never Tobacco User - Caffeine Use Caffeine Use: Reports: Coffee, Tea - Recreational Drug Use Recreational Drug Use: No H&P Review of Systems - Review of Systems: Review Of Systems: Comprehensive ROS is negative, except as noted in HPI. Exam - Exam Exam: See Below - Vital Signs Vital Signs: Last Vital Signs Temp 36.3 C 10/01/20 22:49 Pulse 89 10/01/20 22:49 Resp 16 10/01/20 22:49 BP 116/78 10/01/20 22:49 Pulse Ox 100 10/01/20 22:49 Weight: 57.47 kg - Exam General: Alert, Oriented HEENT: Mucosa Moist & Sargeant Lungs: Clear to Auscultation, Normal Respiratory Effort Cardiovascular: Regular Rate, Regular Rhythm GI/Abdominal Exam: Normal Bowel Sounds, Soft, Non-Tender. No: Guarding, Rigid Back Exam: No: CVA Tenderness (L), CVA Tenderness (R) Extremities: Non-Tender, No Pedal Edema Skin: Warm, Dry, Intact - Patient Data Lab Results Last 24 hrs: Laboratory Results - last 24 hr 10/01/20 10/01/20 10/01/20 Range/Units 19:30 19:30 19:40 WBC 11.02 H (4.0-11.0) K/uL RBC 4.62 (4.30-5.90) M/uL Hgb 12.5 (12.0-16.0) g/dL Hct 38.5 (36.0-46.0) % MCV 83.3 (80.0-98.0) fL MCH 27.1 (27.0-32.0) pg MCHC 32.5 (31.0-37.0) g/dL RDW Std Deviation 41.3 (28.0-62.0) fl RDW Coeff of Toby 14 (11.0-15.0) % Plt Count 274 (150-400) K/uL MPV 9.50 (7.40-12.00) fL Neut % (Auto) 73.9 (48.0-80.0) % Lymph % (Auto) 21.8 (16.0-40.0) % [place] % (Auto) 4.0 (0.0-15.0) % Eos % (Auto) 0.2 (0.0-7.0) % Baso % (Auto) 0.1 (0.0-1.5) % Neut # (Auto) 8.2 H (1.4-5.7) K/uL Lymph # (Auto) 2.4 (0.6-2.4) K/uL [place] # (Auto) 0.4 (0.0-0.8) K/uL Eos # (Auto) 0.0 (0.0-0.7) K/uL Baso # (Auto) 0.0 (0.0-0.1) K/uL Nucleated RBC % 0.0 /100WBC Nucleated RBCs # 0 K/uL Sodium (136-145) mmol/L Potassium (3.5-5.1) mmol/L Chloride (98-107) mmol/L Carbon Dioxide (21.0-32.0) mmol/L BUN (7.0-18.0) mg/dL Creatinine (0.6-1.0) mg/dL Est Cr Clr Drug Dosing mL/min Estimated GFR (MDRD) ml/min Glucose (74-106) mg/dL Calcium (8.5-10.1) mg/dL Total Bilirubin (0.2-1.0) mg/dL AST (15-37) IU/L ALT (14-63) IU/L Alkaline Phosphatase (46-116) U/L Total Protein (6.4-8.2) g/dL Albumin (3.4-5.0) g/dL Globulin (2.6-4.0) g/dL Albumin/Globulin Ratio (0.9-1.6) Lipase (73-393) U/L Urine Color YELLOW Urine Appearance SLT CLOUDY Urine pH 6.0 (5.0-8.0) Ur Specific [place] >= 1.030 (1.001-1.035) Urine Protein TRACE H (NEGATIVE) mg/dL Urine Glucose (UA) NEGATIVE (NEGATIVE) mg/dL Urine Ketones TRACE H (NEGATIVE) mg/dL Urine Occult Blood NEGATIVE (NEGATIVE) Urine Nitrite NEGATIVE (NEGATIVE) Urine Bilirubin SMALL H (NEGATIVE) Urine Urobilinogen 0.2 (<2.0) EU/dL Ur Leukocyte Esterase NEGATIVE (NEGATIVE) Urine RBC 0-2 (0-2/HPF) Urine WBC 1-5 (0-5/HPF) Ur Epithelial Cells MODERATE (NONE-FEW) Urine Bacteria 1+ H (NEGATIVE) Urine Mucus MODERATE (NONE-MOD) Urinalysis Comment Urine HCG, Qual NEGATIVE (NEGATIVE) SARS-CoV-2 RNA (VALDO) (NEGATIVE) 10/01/20 10/01/20 Range/Units 19:40 19:40 WBC (4.0-11.0) K/uL RBC (4.30-5.90) M/uL Hgb (12.0-16.0) g/dL Hct (36.0-46.0) % MCV (80.0-98.0) fL MCH (27.0-32.0) pg MCHC (31.0-37.0) g/dL RDW Std Deviation (28.0-62.0) fl RDW Coeff of Toby (11.0-15.0) % Plt Count (150-400) K/uL MPV (7.40-12.00) fL Neut % (Auto) (48.0-80.0) % Lymph % (Auto) (16.0-40.0) % [place] % (Auto) (0.0-15.0) % Eos % (Auto) (0.0-7.0) % Baso % (Auto) (0.0-1.5) % Neut # (Auto) (1.4-5.7) K/uL Lymph # (Auto) (0.6-2.4) K/uL [place] # (Auto) (0.0-0.8) K/uL Eos # (Auto) (0.0-0.7) K/uL Baso # (Auto) (0.0-0.1) K/uL Nucleated RBC % /100WBC Nucleated RBCs # K/uL Sodium 139 (136-145) mmol/L Potassium 4.0 (3.5-5.1) mmol/L Chloride 102 (98-107) mmol/L Carbon Dioxide 25.5 (21.0-32.0) mmol/L BUN 10 (7.0-18.0) mg/dL Creatinine 1.0 (0.6-1.0) mg/dL Est Cr Clr Drug Dosing 61.23 mL/min Estimated GFR (MDRD) > 60.0 ml/min Glucose 97 (74-106) mg/dL Calcium 8.9 (8.5-10.1) mg/dL Total Bilirubin 0.9 (0.2-1.0) mg/dL AST 25 (15-37) IU/L ALT 26 (14-63) IU/L Alkaline Phosphatase 64 (46-116) U/L Total Protein 8.0 (6.4-8.2) g/dL Albumin 3.7 (3.4-5.0) g/dL Globulin 4.3 H (2.6-4.0) g/dL Albumin/Globulin Ratio 0.9 (0.9-1.6) Lipase 89 (73-393) U/L Urine Color Urine Appearance Urine pH (5.0-8.0) Ur Specific [place] (1.001-1.035) Urine Protein (NEGATIVE) mg/dL Urine Glucose (UA) (NEGATIVE) mg/dL Urine Ketones (NEGATIVE) mg/dL Urine Occult Blood (NEGATIVE) Urine Nitrite (NEGATIVE) Urine Bilirubin (NEGATIVE) Urine Urobilinogen (<2.0) EU/dL Ur Leukocyte Esterase (NEGATIVE) Urine RBC (0-2/HPF) Urine WBC (0-5/HPF) Ur Epithelial Cells (NONE-FEW) Urine Bacteria (NEGATIVE) Urine Mucus (NONE-MOD) Urinalysis Comment Urine HCG, Qual (NEGATIVE) SARS-CoV-2 RNA (VALDO) NEGATIVE (NEGATIVE) Result Diagrams: 10/03/20 05:05 10/03/20 05:05 Sepsis Event Note - Focused Exam Vital Signs: Vital Signs Temp Pulse Resp BP Pulse Ox 10/01/20 22:49 36.3 C 89 16 116/78 100 10/01/20 22:22 69 18 101/64 100 10/01/20 19:29 36.7 C 97 16 100/69 100 Problem List Initiated/Reviewed/Updated: Yes Orders Last 24hrs: Active Orders 24 hr Category Date Time Status Admission Status [Patient Status] [ADT] Stat ADT 10/01/20 21:29 Active Ciprofloxacin in D5W [Cipro in D5W 400 MG/200 ML] 400 Med 10/01/20 21:45 Active mg Premix Bag 1 bag IV Q12H Medication Orders Ciprofloxacin/Dextrose 400 mg/ (Premix) 200 mls @ 200 mls/hr IV Q12H DANAE Last Admin: 10/01/20 21:41 Dose: 200 mls/hr Documented by: CHELSEY Assessment/Plan Comment:: 24 yo female admitted for pyelonephritis. We will treat with rocephin
[2020-10-02] MEDS ORDERED: cefTRIAXone 1 GM in Sodium Chloride 0.9% 50 ML IV SCH (00:30)
[2020-10-02] MEDS ORDERED: Acetaminophen 325 MG Tab PO PRN (00:51)
[2020-10-02] MEDS ORDERED: oxyCODONE 5 MG Tab PO PRN (00:51)
[2020-10-02] MEDS ORDERED: Morphine 2 MG/ML SYRINGE IVPUSH PRN (00:54)
[2020-10-02] MEDS: cefTRIAXone 1 GM in Premix Bag 1 BAG IV SCH (01:08)
[2020-10-02 06:10] LABS: BLOOD UREA NITROGEN,BUN 7 mg/dL (7.0-18.0); CARBON DIOXIDE,CO2 26.5 mmol/L (21.0-32.0); CHLORIDE,CL 105 mmol/L (98-107); GLUCOSE RANDOM 75 mg/dL (74-106); POTASSIUM,K 4.2 mmol/L (3.5-5.1); SODIUM,NA 139 mmol/L (136-145)
--- NOTE | 2020-10-02 08:07 | PCM.PN ---
- General Info Date of Service: 10/02/20 - Review of Systems Systems Review Comment:: flank pain improving, no fevers. - Patient Data Vitals - Most Recent: Last Vital Signs Temp 36.8 C 10/02/20 07:59 Pulse 74 10/02/20 07:59 Resp 22 H 10/02/20 07:59 BP 91/56 L 10/02/20 07:59 Pulse Ox 96 10/02/20 07:59 Weight - Most Recent: 57.47 kg I&O - Last 24 Hours: Intake & Output 10/01/20 10/02/20 10/02/20 22:59 06:59 14:59 Intake Total 300 Output Total 250 Balance 50 Lab Results Last 24 Hours: Laboratory Results - last 24 hr 10/01/20 10/01/20 10/01/20 Range/Units 19:30 19:30 19:40 WBC 11.02 H (4.0-11.0) K/uL RBC 4.62 (4.30-5.90) M/uL Hgb 12.5 (12.0-16.0) g/dL Hct 38.5 (36.0-46.0) % MCV 83.3 (80.0-98.0) fL MCH 27.1 (27.0-32.0) pg MCHC 32.5 (31.0-37.0) g/dL RDW Std Deviation 41.3 (28.0-62.0) fl RDW Coeff of Toby 14 (11.0-15.0) % Plt Count 274 (150-400) K/uL MPV 9.50 (7.40-12.00) fL Neut % (Auto) 73.9 (48.0-80.0) % Lymph % (Auto) 21.8 (16.0-40.0) % [place] % (Auto) 4.0 (0.0-15.0) % Eos % (Auto) 0.2 (0.0-7.0) % Baso % (Auto) 0.1 (0.0-1.5) % Neut # (Auto) 8.2 H (1.4-5.7) K/uL Lymph # (Auto) 2.4 (0.6-2.4) K/uL [place] # (Auto) 0.4 (0.0-0.8) K/uL Eos # (Auto) 0.0 (0.0-0.7) K/uL Baso # (Auto) 0.0 (0.0-0.1) K/uL Nucleated RBC % 0.0 /100WBC Nucleated RBCs # 0 K/uL Sodium (136-145) mmol/L Potassium (3.5-5.1) mmol/L Chloride (98-107) mmol/L Carbon Dioxide (21.0-32.0) mmol/L BUN (7.0-18.0) mg/dL Creatinine (0.6-1.0) mg/dL Est Cr Clr Drug Dosing mL/min Estimated GFR (MDRD) ml/min Glucose (74-106) mg/dL Calcium (8.5-10.1) mg/dL Total Bilirubin (0.2-1.0) mg/dL AST (15-37) IU/L ALT (14-63) IU/L Alkaline Phosphatase (46-116) U/L Total Protein (6.4-8.2) g/dL Albumin (3.4-5.0) g/dL Globulin (2.6-4.0) g/dL Albumin/Globulin Ratio (0.9-1.6) Lipase (73-393) U/L Urine Color YELLOW Urine Appearance SLT CLOUDY Urine pH 6.0 (5.0-8.0) Ur Specific [place] >= 1.030 (1.001-1.035) Urine Protein TRACE H (NEGATIVE) mg/dL Urine Glucose (UA) NEGATIVE (NEGATIVE) mg/dL Urine Ketones TRACE H (NEGATIVE) mg/dL Urine Occult Blood NEGATIVE (NEGATIVE) Urine Nitrite NEGATIVE (NEGATIVE) Urine Bilirubin SMALL H (NEGATIVE) Urine Urobilinogen 0.2 (<2.0) EU/dL Ur Leukocyte Esterase NEGATIVE (NEGATIVE) Urine RBC 0-2 (0-2/HPF) Urine WBC 1-5 (0-5/HPF) Ur Epithelial Cells MODERATE (NONE-FEW) Urine Bacteria 1+ H (NEGATIVE) Urine Mucus MODERATE (NONE-MOD) Urinalysis Comment Urine HCG, Qual NEGATIVE (NEGATIVE) SARS-CoV-2 RNA (VALDO) (NEGATIVE) 10/01/20 10/01/20 10/02/20 Range/Units 19:40 19:40 04:59 WBC 6.75 (4.0-11.0) K/uL RBC 3.82 L (4.30-5.90) M/uL Hgb 10.4 L (12.0-16.0) g/dL Hct 31.8 L (36.0-46.0) % MCV 83.2 (80.0-98.0) fL MCH 27.2 (27.0-32.0) pg MCHC 32.7 (31.0-37.0) g/dL RDW Std Deviation 41.9 (28.0-62.0) fl RDW Coeff of Toby 14 (11.0-15.0) % Plt Count 260 (150-400) K/uL MPV 9.70 (7.40-12.00) fL Neut % (Auto) 60.9 (48.0-80.0) % Lymph % (Auto) 31.6 (16.0-40.0) % [place] % (Auto) 7.0 (0.0-15.0) % Eos % (Auto) 0.4 (0.0-7.0) % Baso % (Auto) 0.1 (0.0-1.5) % Neut # (Auto) 4.1 (1.4-5.7) K/uL Lymph # (Auto) 2.1 (0.6-2.4) K/uL [place] # (Auto) 0.5 (0.0-0.8) K/uL Eos # (Auto) 0.0 (0.0-0.7) K/uL Baso # (Auto) 0.0 (0.0-0.1) K/uL Nucleated RBC % 0.0 /100WBC Nucleated RBCs # 0 K/uL Sodium 139 (136-145) mmol/L Potassium 4.0 (3.5-5.1) mmol/L Chloride 102 (98-107) mmol/L Carbon Dioxide 25.5 (21.0-32.0) mmol/L BUN 10 (7.0-18.0) mg/dL Creatinine 1.0 (0.6-1.0) mg/dL Est Cr Clr Drug Dosing 61.23 mL/min Estimated GFR (MDRD) > 60.0 ml/min Glucose 97 (74-106) mg/dL Calcium 8.9 (8.5-10.1) mg/dL Total Bilirubin 0.9 (0.2-1.0) mg/dL AST 25 (15-37) IU/L ALT 26 (14-63) IU/L Alkaline Phosphatase 64 (46-116) U/L Total Protein 8.0 (6.4-8.2) g/dL Albumin 3.7 (3.4-5.0) g/dL Globulin 4.3 H (2.6-4.0) g/dL Albumin/Globulin Ratio 0.9 (0.9-1.6) Lipase 89 (73-393) U/L Urine Color Urine Appearance Urine pH (5.0-8.0) Ur Specific [place] (1.001-1.035) Urine Protein (NEGATIVE) mg/dL Urine Glucose (UA) (NEGATIVE) mg/dL Urine Ketones (NEGATIVE) mg/dL Urine Occult Blood (NEGATIVE) Urine Nitrite (NEGATIVE) Urine Bilirubin (NEGATIVE) Urine Urobilinogen (<2.0) EU/dL Ur Leukocyte Esterase (NEGATIVE) Urine RBC (0-2/HPF) Urine WBC (0-5/HPF) Ur Epithelial Cells (NONE-FEW) Urine Bacteria (NEGATIVE) Urine Mucus (NONE-MOD) Urinalysis Comment Urine HCG, Qual (NEGATIVE) SARS-CoV-2 RNA (VALDO) NEGATIVE (NEGATIVE) 10/02/20 Range/Units 04:59 WBC (4.0-11.0) K/uL RBC (4.30-5.90) M/uL Hgb (12.0-16.0) g/dL Hct (36.0-46.0) % MCV (80.0-98.0) fL MCH (27.0-32.0) pg MCHC (31.0-37.0) g/dL RDW Std Deviation (28.0-62.0) fl RDW Coeff of Toby (11.0-15.0) % Plt Count (150-400) K/uL MPV (7.40-12.00) fL Neut % (Auto) (48.0-80.0) % Lymph % (Auto) (16.0-40.0) % [place] % (Auto) (0.0-15.0) % Eos % (Auto) (0.0-7.0) % Baso % (Auto) (0.0-1.5) % Neut # (Auto) (1.4-5.7) K/uL Lymph # (Auto) (0.6-2.4) K/uL [place] # (Auto) (0.0-0.8) K/uL Eos # (Auto) (0.0-0.7) K/uL Baso # (Auto) (0.0-0.1) K/uL Nucleated RBC % /100WBC Nucleated RBCs # K/uL Sodium 139 (136-145) mmol/L Potassium 4.2 (3.5-5.1) mmol/L Chloride 105 (98-107) mmol/L Carbon Dioxide 26.5 (21.0-32.0) mmol/L BUN 7 (7.0-18.0) mg/dL Creatinine 0.9 (0.6-1.0) mg/dL Est Cr Clr Drug Dosing 68.04 mL/min Estimated GFR (MDRD) > 60.0 ml/min Glucose 75 (74-106) mg/dL Calcium 8.0 L (8.5-10.1) mg/dL Total Bilirubin 0.6 (0.2-1.0) mg/dL AST 15 (15-37) IU/L ALT 20 (14-63) IU/L Alkaline Phosphatase 50 (46-116) U/L Total Protein 6.2 L (6.4-8.2) g/dL Albumin 2.8 L (3.4-5.0) g/dL Globulin 3.4 (2.6-4.0) g/dL Albumin/Globulin Ratio 0.8 L (0.9-1.6) Lipase (73-393) U/L Urine Color Urine Appearance Urine pH (5.0-8.0) Ur Specific [place] (1.001-1.035) Urine Protein (NEGATIVE) mg/dL Urine Glucose (UA) (NEGATIVE) mg/dL Urine Ketones (NEGATIVE) mg/dL Urine Occult Blood (NEGATIVE) Urine Nitrite (NEGATIVE) Urine Bilirubin (NEGATIVE) Urine Urobilinogen (<2.0) EU/dL Ur Leukocyte Esterase (NEGATIVE) Urine RBC (0-2/HPF) Urine WBC (0-5/HPF) Ur Epithelial Cells (NONE-FEW) Urine Bacteria (NEGATIVE) Urine Mucus (NONE-MOD) Urinalysis Comment Urine HCG, Qual (NEGATIVE) SARS-CoV-2 RNA (VALDO) (NEGATIVE) Med Orders - Current: Current Medications Acetaminophen (Acetaminophen 325 Mg Tab) 650 mg PO Q4H PRN PRN Reason: Pain (Mild 1-3)/fever Ceftriaxone Sodium/Dextrose 1 (gm/ Premix) 50 mls @ 100 mls/hr IV Q24H [facility] Last Admin: 10/02/20 01:08 Dose: 100 mls/hr Documented by: Morphine Sulfate (Morphine 2 Mg/Ml Syringe) 2 mg IVPUSH Q2H PRN PRN Reason: Pain (severe 7-10) Oxycodone HCl (Oxycodone 5 Mg Tab) 5 mg PO Q4H PRN PRN Reason: Pain (moderate 4-6) Discontinued Medications Hydromorphone HCl (Hydromorphone 1 Mg/Ml Syringe) 1 mg IVPUSH ONETIME ONE Stop: 10/01/20 21:57 Last Admin: 10/01/20 22:23 Dose: 1 mg Documented by: Sodium Chloride (Normal Saline) 1,000 mls @ 999 mls/hr IV STAT ONE Stop: 10/01/20 20:32 Last Admin: 10/01/20 19:34 Dose: 999 mls/hr Documented by: Ciprofloxacin/Dextrose 400 mg/ (Premix) 200 mls @ 200 mls/hr IV Q12H [facility]NAE Stop: 10/02/20 00:22 Last Admin: 10/01/20 21:41 Dose: 200 mls/hr Documented by: Ceftriaxone Sodium 1 gm/ (Sodium Chloride) 50 mls @ 100 mls/hr IV Q24H [facility] Last Admin: 10/02/20 01:59 Dose: Not Given Documented by: Iopamidol (Iopamidol 755 Mg/Ml 500 Ml Multipack Bottle) 75 ml IVPUSH ONETIME STA Stop: 10/01/20 20:24 Last Admin: 10/01/20 20:25 Dose: 75 ml Documented by: Morphine Sulfate (Morphine 2 Mg/Ml Syringe) 2 mg IVPUSH ONETIME ONE Stop: 10/01/20 19:37 Last Admin: 10/01/20 19:50 Dose: 2 mg Documented by: Ondansetron HCl (Ondansetron 4 Mg/2 Ml Sdv) 4 mg IVPUSH ONETIME ONE Stop: 10/01/20 19:37 Last Admin: 10/01/20 19:49 Dose: 4 mg Documented by: - Exam General: Alert, Oriented Lungs: Clear to Auscultation, Normal Respiratory Effort Cardiovascular: Regular Rate, Regular Rhythm GI/Abdominal Exam: Normal Bowel Sounds, Soft, Non-Tender Extremities: Non-Tender, No Pedal Edema Skin: Warm, Dry, Intact Neurological: No New Focal Deficit - Patient Data Lab Results Last 24 hrs: Laboratory Results - last 24 hr 10/01/20 10/01/20 10/01/20 Range/Units 19:30 19:30 19:40 WBC 11.02 H (4.0-11.0) K/uL RBC 4.62 (4.30-5.90) M/uL Hgb 12.5 (12.0-16.0) g/dL Hct 38.5 (36.0-46.0) % MCV 83.3 (80.0-98.0) fL MCH 27.1 (27.0-32.0) pg MCHC 32.5 (31.0-37.0) g/dL RDW Std Deviation 41.3 (28.0-62.0) fl RDW Coeff of Toby 14 (11.0-15.0) % Plt Count 274 (150-400) K/uL MPV 9.50 (7.40-12.00) fL Neut % (Auto) 73.9 (48.0-80.0) % Lymph % (Auto) 21.8 (16.0-40.0) % [place] % (Auto) 4.0 (0.0-15.0) % Eos % (Auto) 0.2 (0.0-7.0) % Baso % (Auto) 0.1 (0.0-1.5) % Neut # (Auto) 8.2 H (1.4-5.7) K/uL Lymph # (Auto) 2.4 (0.6-2.4) K/uL [place] # (Auto) 0.4 (0.0-0.8) K/uL Eos # (Auto) 0.0 (0.0-0.7) K/uL Baso # (Auto) 0.0 (0.0-0.1) K/uL Nucleated RBC % 0.0 /100WBC Nucleated RBCs # 0 K/uL Sodium (136-145) mmol/L Potassium (3.5-5.1) mmol/L Chloride (98-107) mmol/L Carbon Dioxide (21.0-32.0) mmol/L BUN (7.0-18.0) mg/dL Creatinine (0.6-1.0) mg/dL Est Cr Clr Drug Dosing mL/min Estimated GFR (MDRD) ml/min Glucose (74-106) mg/dL Calcium (8.5-10.1) mg/dL Total Bilirubin (0.2-1.0) mg/dL AST (15-37) IU/L ALT (14-63) IU/L Alkaline Phosphatase (46-116) U/L Total Protein (6.4-8.2) g/dL Albumin (3.4-5.0) g/dL Globulin (2.6-4.0) g/dL Albumin/Globulin Ratio (0.9-1.6) Lipase (73-393) U/L Urine Color YELLOW Urine Appearance SLT CLOUDY Urine pH 6.0 (5.0-8.0) Ur Specific [place] >= 1.030 (1.001-1.035) Urine Protein TRACE H (NEGATIVE) mg/dL Urine Glucose (UA) NEGATIVE (NEGATIVE) mg/dL Urine Ketones TRACE H (NEGATIVE) mg/dL Urine Occult Blood NEGATIVE (NEGATIVE) Urine Nitrite NEGATIVE (NEGATIVE) Urine Bilirubin SMALL H (NEGATIVE) Urine Urobilinogen 0.2 (<2.0) EU/dL Ur Leukocyte Esterase NEGATIVE (NEGATIVE) Urine RBC 0-2 (0-2/HPF) Urine WBC 1-5 (0-5/HPF) Ur Epithelial Cells MODERATE (NONE-FEW) Urine Bacteria 1+ H (NEGATIVE) Urine Mucus MODERATE (NONE-MOD) Urinalysis Comment Urine HCG, Qual NEGATIVE (NEGATIVE) SARS-CoV-2 RNA (VALDO) (NEGATIVE) 10/01/20 10/01/20 10/02/20 Range/Units 19:40 19:40 04:59 WBC 6.75 (4.0-11.0) K/uL RBC 3.82 L (4.30-5.90) M/uL Hgb 10.4 L (12.0-16.0) g/dL Hct 31.8 L (36.0-46.0) % MCV 83.2 (80.0-98.0) fL MCH 27.2 (27.0-32.0) pg MCHC 32.7 (31.0-37.0) g/dL RDW Std Deviation 41.9 (28.0-62.0) fl RDW Coeff of Toby 14 (11.0-15.0) % Plt Count 260 (150-400) K/uL MPV 9.70 (7.40-12.00) fL Neut % (Auto) 60.9 (48.0-80.0) % Lymph % (Auto) 31.6 (16.0-40.0) % [place] % (Auto) 7.0 (0.0-15.0) % Eos % (Auto) 0.4 (0.0-7.0) % Baso % (Auto) 0.1 (0.0-1.5) % Neut # (Auto) 4.1 (1.4-5.7) K/uL Lymph # (Auto) 2.1 (0.6-2.4) K/uL [place] # (Auto) 0.5 (0.0-0.8) K/uL Eos # (Auto) 0.0 (0.0-0.7) K/uL Baso # (Auto) 0.0 (0.0-0.1) K/uL Nucleated RBC % 0.0 /100WBC Nucleated RBCs # 0 K/uL Sodium 139 (136-145) mmol/L Potassium 4.0 (3.5-5.1) mmol/L Chloride 102 (98-107) mmol/L Carbon Dioxide 25.5 (21.0-32.0) mmol/L BUN 10 (7.0-18.0) mg/dL Creatinine 1.0 (0.6-1.0) mg/dL Est Cr Clr Drug Dosing 61.23 mL/min Estimated GFR (MDRD) > 60.0 ml/min Glucose 97 (74-106) mg/dL Calcium 8.9 (8.5-10.1) mg/dL Total Bilirubin 0.9 (0.2-1.0) mg/dL AST 25 (15-37) IU/L ALT 26 (14-63) IU/L Alkaline Phosphatase 64 (46-116) U/L Total Protein 8.0 (6.4-8.2) g/dL Albumin 3.7 (3.4-5.0) g/dL Globulin 4.3 H (2.6-4.0) g/dL Albumin/Globulin Ratio 0.9 (0.9-1.6) Lipase 89 (73-393) U/L Urine Color Urine Appearance Urine pH (5.0-8.0) Ur Specific [place] (1.001-1.035) Urine Protein (NEGATIVE) mg/dL Urine Glucose (UA) (NEGATIVE) mg/dL Urine Ketones (NEGATIVE) mg/dL Urine Occult Blood (NEGATIVE) Urine Nitrite (NEGATIVE) Urine Bilirubin (NEGATIVE) Urine Urobilinogen (<2.0) EU/dL Ur Leukocyte Esterase (NEGATIVE) Urine RBC (0-2/HPF) Urine WBC (0-5/HPF) Ur Epithelial Cells (NONE-FEW) Urine Bacteria (NEGATIVE) Urine Mucus (NONE-MOD) Urinalysis Comment Urine HCG, Qual (NEGATIVE) SARS-CoV-2 RNA (VALDO) NEGATIVE (NEGATIVE) 10/02/20 Range/Units 04:59 WBC (4.0-11.0) K/uL RBC (4.30-5.90) M/uL Hgb (12.0-16.0) g/dL Hct (36.0-46.0) % MCV (80.0-98.0) fL MCH (27.0-32.0) pg MCHC (31.0-37.0) g/dL RDW Std Deviation (28.0-62.0) fl RDW Coeff of Toby (11.0-15.0) % Plt Count (150-400) K/uL MPV (7.40-12.00) fL Neut % (Auto) (48.0-80.0) % Lymph % (Auto) (16.0-40.0) % [place] % (Auto) (0.0-15.0) % Eos % (Auto) (0.0-7.0) % Baso % (Auto) (0.0-1.5) % Neut # (Auto) (1.4-5.7) K/uL Lymph # (Auto) (0.6-2.4) K/uL [place] # (Auto) (0.0-0.8) K/uL Eos # (Auto) (0.0-0.7) K/uL Baso # (Auto) (0.0-0.1) K/uL Nucleated RBC % /100WBC Nucleated RBCs # K/uL Sodium 139 (136-145) mmol/L Potassium 4.2 (3.5-5.1) mmol/L Chloride 105 (98-107) mmol/L Carbon Dioxide 26.5 (21.0-32.0) mmol/L BUN 7 (7.0-18.0) mg/dL Creatinine 0.9 (0.6-1.0) mg/dL Est Cr Clr Drug Dosing 68.04 mL/min Estimated GFR (MDRD) > 60.0 ml/min Glucose 75 (74-106) mg/dL Calcium 8.0 L (8.5-10.1) mg/dL Total Bilirubin 0.6 (0.2-1.0) mg/dL AST 15 (15-37) IU/L ALT 20 (14-63) IU/L Alkaline Phosphatase 50 (46-116) U/L Total Protein 6.2 L (6.4-8.2) g/dL Albumin 2.8 L (3.4-5.0) g/dL Globulin 3.4 (2.6-4.0) g/dL Albumin/Globulin Ratio 0.8 L (0.9-1.6) Lipase (73-393) U/L Urine Color Urine Appearance Urine pH (5.0-8.0) Ur Specific [place] (1.001-1.035) Urine Protein (NEGATIVE) mg/dL Urine Glucose (UA) (NEGATIVE) mg/dL Urine Ketones (NEGATIVE) mg/dL Urine Occult Blood (NEGATIVE) Urine Nitrite (NEGATIVE) Urine Bilirubin (NEGATIVE) Urine Urobilinogen (<2.0) EU/dL Ur Leukocyte Esterase (NEGATIVE) Urine RBC (0-2/HPF) Urine WBC (0-5/HPF) Ur Epithelial Cells (NONE-FEW) Urine Bacteria (NEGATIVE) Urine Mucus (NONE-MOD) Urinalysis Comment Urine HCG, Qual (NEGATIVE) SARS-CoV-2 RNA (VALDO) (NEGATIVE) Result Diagrams: 10/02/20 04:59 10/02/20 04:59 Sepsis Event Note - Evaluation Sepsis Screening Result: No Definite Risk - Focused Exam Vital Signs: Vital Signs Temp Temp Pulse Resp BP Pulse Ox 10/02/20 07:59 36.8 C 74 22 H 91/56 L 96 10/02/20 04:51 36.2 C 65 16 90/60 100 10/01/20 22:49 36.3 C 89 16 116/78 100 10/01/20 22:22 69 18 101/64 100 - Problem List Review Problem List Initiated/Reviewed/Updated: Yes - My Orders Last 24 Hours: My Active Orders 10/02/20 00:20 CULTURE URINE [MREF] Routine 10/02/20 00:51 Antiembolic Devices [RC] PER UNIT ROUTINE Oxygen Therapy [RC] PRN Up ad Ludy [RC] ASDIRECTED VTE/DVT Education [RC] PER UNIT ROUTINE Vital Signs [RC] Q4H Acetaminophen [TylenoL] 650 mg PO Q4H PRN oxyCODONE 5 mg PO Q4H PRN Sequential Compression Device [OM.PC] Per Unit Routine Resuscitation Status Routine 10/02/20 00:54 Morphine 2 mg IVPUSH Q2H PRN 10/02/20 01:00 cefTRIAXone [Rocephin in Dextrose,Iso-Osm 1 GM/50 ML] 1 gm Premix Bag 1 bag IV Q24H 10/02/20 Breakfast Regular Diet [DIET] - Plan Plan:: 24 yo female admitted for pyelonephritis. We will continue IV Rocephin.
[2020-10-02] MEDS: Sodium Chloride 0.9% 1,000 ML IV SCH ×2 (14:05→22:13)
[2020-10-03] MEDS: cefTRIAXone 1 GM in Premix Bag 1 BAG IV SCH (01:49)
[2020-10-03 06:07] LABS: BLOOD UREA NITROGEN,BUN 8 mg/dL (7.0-18.0); CARBON DIOXIDE,CO2 25.7 mmol/L (21.0-32.0); CHLORIDE,CL 107 mmol/L (98-107); GLUCOSE RANDOM 86 mg/dL (74-106); POTASSIUM,K 3.9 mmol/L (3.5-5.1); SODIUM,NA 140 mmol/L (136-145)
[2020-10-03] MEDS: Sodium Chloride 0.9% 1,000 ML IV SCH (06:07)
[2020-10-03] MEDS ORDERED: Acetaminophen 500 MG Tab PO PRN (09:00)
[2020-10-03 09:03] VITALS: BP 107/66; PULSE 70
--- NOTE | 2020-10-03 11:48 | PCM.DCSUM1 ---
Discharge Summary - Discharge Data Discharge Date: 10/03/20 Discharge Disposition: Home, Self-Care 01 Condition: Good - Referral to Home Health Primary Care Physician: Lissa Chaudhry MD - Patient Summary/Data Hospital Course: 24 yo female who presents with one day history of right flank pain, nausea and vomiting. Patient denied any fevers, chills, or diarrhea. 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 ER provider contacted Urology who recommended 1-3 days of IV antibiotics followed by 3-4 weeks. She was treated with IV Rocephin for two days. She did have resolution of nausea and vomiting and feels ready for discharge. She was discharge home with Ciprofloxacin for three weeks. I called her PCP Dr. Suarez and informed her of the pending urine culture. - Patient Instructions Diet: Regular Diet as Tolerated Activity: As Tolerated Other/Special Instructions: Report any signs of worsening infection, including, pain, fevers, or chills. Take Ciprofloxacin twice a day for three weeks. Report any side effects such as nausea, upset stomach, joint/tendon pain, numbness or tingling. Take precautions to avoid /breast feeding while on Ciprofloxacin. Follow up with Dr. Suarez. Answer phone calls from hospital as your urine cultures are still pending and we may need to change your antibiotic due to culture results. - Discharge Plan Prescriptions/Med Rec: RX: Ciprofloxacin [Ciprofloxacin HCl] 500 mg PO BID #42 tab Home Medications: Home Meds RX: Acetaminophen [Tylenol Extra Strength] 500 mg PO ASDIRECTED PRN 10/01/20 [History] RX: Ciprofloxacin [Ciprofloxacin HCl] 500 mg PO BID #42 tab 10/03/20 [Rx] RX: Ethinyl Estradiol/Drospirenone [[place] 3 MG-0.02 MG] 1 tab PO DAILY 10/03/20 [History] Patient Handouts: Pyelonephritis, Adult, [id number] Forms: ED Department Discharge Referrals: Karen Brewer NP [Nurse Practitioner] - 10/09/20 11:45 am - Discharge Summary/Plan Comment DC Time >30 min.: No Total # of Minutes for Discharge Time: 25 - Patient Data Vitals - Most Recent: Last Vital Signs Temp 36.4 C 10/03/20 09:02 Pulse 70 10/03/20 09:02 Resp 17 10/03/20 09:02 BP 107/66 10/03/20 09:02 Pulse Ox 98 10/03/20 09:02 Weight - Most Recent: 57.47 kg I&O - Last 24 hours: Intake & Output 10/02/20 10/03/20 10/03/20 22:59 06:59 14:59 Intake Total 1074 750 Output Total 1800 1500 Balance -726 -750 Lab Results - Last 24 hrs: Laboratory Results - last 24 hr 10/03/20 10/03/20 Range/Units 05:05 05:05 WBC 7.74 (4.0-11.0) K/uL RBC 3.77 L (4.30-5.90) M/uL Hgb 10.3 L (12.0-16.0) g/dL Hct 31.6 L (36.0-46.0) % MCV 83.8 (80.0-98.0) fL MCH 27.3 (27.0-32.0) pg MCHC 32.6 (31.0-37.0) g/dL RDW Std Deviation 41.1 (28.0-62.0) fl RDW Coeff of Toby 14 (11.0-15.0) % Plt Count 248 (150-400) K/uL MPV 9.90 (7.40-12.00) fL Neut % (Auto) 55.5 (48.0-80.0) % Lymph % (Auto) 38.0 (16.0-40.0) % [place] % (Auto) 5.8 (0.0-15.0) % Eos % (Auto) 0.6 (0.0-7.0) % Baso % (Auto) 0.1 (0.0-1.5) % Neut # (Auto) 4.3 (1.4-5.7) K/uL Lymph # (Auto) 2.9 H (0.6-2.4) K/uL [place] # (Auto) 0.5 (0.0-0.8) K/uL Eos # (Auto) 0.1 (0.0-0.7) K/uL Baso # (Auto) 0.0 (0.0-0.1) K/uL Nucleated RBC % 0.0 /100WBC Nucleated RBCs # 0 K/uL Sodium 140 (136-145) mmol/L Potassium 3.9 (3.5-5.1) mmol/L Chloride 107 (98-107) mmol/L Carbon Dioxide 25.7 (21.0-32.0) mmol/L BUN 8 (7.0-18.0) mg/dL Creatinine 0.8 (0.6-1.0) mg/dL Est Cr Clr Drug Dosing 76.54 mL/min Estimated GFR (MDRD) > 60.0 ml/min Glucose 86 (74-106) mg/dL Calcium 8.0 L (8.5-10.1) mg/dL Med Orders - Current: Current Medications Acetaminophen (Acetaminophen 500 Mg Tab) 1,000 mg PO Q6H PRN PRN Reason: pain/headache Last Admin: 10/03/20 09:33 Dose: 1,000 mg Documented by: Ceftriaxone Sodium/Dextrose 1 (gm/ Premix) 50 mls @ 100 mls/hr IV Q24H [facility] Last Admin: 10/03/20 01:49 Dose: 100 mls/hr Documented by: Sodium Chloride (Normal Saline) 1,000 mls @ 125 mls/hr IV Q8H [facility] Last Admin: 10/03/20 06:07 Dose: 125 mls/hr Documented by: Morphine Sulfate (Morphine 2 Mg/Ml Syringe) 2 mg IVPUSH Q2H PRN PRN Reason: Pain (severe 7-10) Oxycodone HCl (Oxycodone 5 Mg Tab) 5 mg PO Q4H PRN PRN Reason: Pain (moderate 4-6) Discontinued Medications Acetaminophen (Acetaminophen 325 Mg Tab) 650 mg PO Q4H PRN PRN Reason: Pain (Mild 1-3)/fever Hydromorphone HCl (Hydromorphone 1 Mg/Ml Syringe) 1 mg IVPUSH ONETIME ONE Stop: 10/01/20 21:57 Last Admin: 10/01/20 22:23 Dose: 1 mg Documented by: Sodium Chloride (Normal Saline) 1,000 mls @ 999 mls/hr IV STAT ONE Stop: 10/01/20 20:32 Last Admin: 10/01/20 19:34 Dose: 999 mls/hr Documented by: Ciprofloxacin/Dextrose 400 mg/ (Premix) 200 mls @ 200 mls/hr IV Q12H [facility] Stop: 10/02/20 00:22 Last Admin: 10/01/20 21:41 Dose: 200 mls/hr Documented by: Ceftriaxone Sodium 1 gm/ (Sodium Chloride) 50 mls @ 100 mls/hr IV Q24H [facility] Last Admin: 10/02/20 01:59 Dose: Not Given Documented by: Iopamidol (Iopamidol 755 Mg/Ml 500 Ml Multipack Bottle) [address] [facility] Stop: 10/01/20 20:24 Last Admin: 10/01/20 20:25 Dose: 75 ml Documented by: Morphine Sulfate (Morphine 2 Mg/Ml Syringe) 2 mg IVPUSH ONETIME ONE Stop: 10/01/20 19:37 Last Admin: 10/01/20 19:50 Dose: 2 mg Documented by: Ondansetron HCl (Ondansetron 4 Mg/2 Ml Sdv) 4 mg IVPUSH ONETIME ONE Stop: 10/01/20 19:37 Last Admin: 10/01/20 19:49 Dose: 4 mg Documented by:
== END 2020-10-03 11:45 | disposition home or self-care (01) | DRG 463 ==
LOC: MW.ED 18:53 → MW.MS 21:29
PROVIDERS: ADMIT Internal Medicine; ATTEND Internal Medicine
DX: N12 Tubulo-interstitial nephritis, not specified as acute or chronic (principal); Z20.822 Contact with and (suspected) exposure to COVID-19; Z98.890 Other specified postprocedural states; Z90.89 Acquired absence of other organs; K21.9 Gastro-esophageal reflux disease without esophagitis
CPT/HCPCS: 36415; 74177; 74177-26; 80048; 80053; 81001; 81025; 83690; 85025; 87086; 96374; 96375; 99285-25; A9270-GY; J0696; J0744; J1170; J2270; J2405; J7030; Q9967; U0002

== ENCOUNTER 2020-10-06 07:55 | Inpatient (IN) | payer BC ==
[2020-10-06] MEDS ORDERED: Lactated Ringers 1,000 ML IV ONE (09:33)
[2020-10-06] MEDS ORDERED: Morphine 4 MG/ML Syringe IVPUSH ONE (09:33)
[2020-10-06 10:18] LABS: BLOOD UREA NITROGEN,BUN 10 mg/dL (7.0-18.0); CARBON DIOXIDE,CO2 26.6 mmol/L (21.0-32.0); CHLORIDE,CL 103 mmol/L (98-107); GLUCOSE RANDOM 73 mg/dL (74-106); POTASSIUM,K 3.2 mmol/L (3.5-5.1); SODIUM,NA 139 mmol/L (136-145)
--- NOTE | 2020-10-06 12:28 | CT ---
INDICATION: Acute pyelonephritis; increasing right flank pain and hematuria. COMPARISON: CT abdomen and pelvis with intravenous contrast October 01, 2020. TECHNIQUE: CT abdomen and pelvis with intravenous contrast; coronal and sagittal reformats. FINDINGS: The findings of acute pyelonephritis involving the right kidney appear more pronounced when compared to October 01, 2020. No evidence of renal abscess. No obstructive uropathy or perinephric pathology. No kidney stones. No focal hepatic or splenic pathology. No pancreatic pathology. Gallbladder is unremarkable. No adrenal pathology. No retroperitoneal lymphadenopathy. No evidence of abdominal or pelvic ascites. No pneumoperitoneum or intestinal obstruction. Copious amounts of retained stool identified in the colon. Normal appendix. Impression : 1. No renal abscess. 2. Acute pyelonephritis right kidney with evidence of lobar nephronia; further progression when compared to October 01, 2020. 3. No obstructive uropathy or perinephric pathology. Please note that all CT scans at this facility use dose modulation, iterative reconstruction, and/or weight-based dosing when appropriate to reduce radiation dose to as low as reasonably achievable. Dictated by Aldo Fairchild MD @ 10/06/2020 12:27:[address] Aldo Fairchild @ Oct 06 2020 12:27PM
[2020-10-06] MEDS ORDERED: Potassium Chloride 10% 20 MEQ/15 ML Soln 30 ML UD Cup PO ONE (13:01)
[2020-10-06] MEDS ORDERED: Ampicillin 2 GM in Sodium Chloride 0.9% 100 ML IV ONE ×2 (13:03→13:30)
--- NOTE | 2020-10-06 14:31 | EDM.PDOC ---
ED HPI GENERAL MEDICAL PROBLEM - General Chief Complaint: Genitourinary Problem Stated Complaint: kidney infection Time Seen by Provider: 10/06/20 08:36 - History of Present Illness INITIAL COMMENTS - FREE TEXT/NARRATIVE: CHIEF COMPLAINT(S): Right flank pain HISTORY OF PRESENT ILLNESS: This is a 25-year-old woman with a recent admission for pyelonephritis who comes to the emergency department with a chief complaint of right flank pain. The patient states that she was instructed upon discharge to return to the emergency department if she had any worsening pain or vomiting or fever. She states that today she had one episode of vomiting and her pain has increased. She states that yesterday it was intermittent right flank pain which she describes as sharp rated mild 4 out of 10. She states that since last night it has been constant is now rated 8 out of 10. She denies any radiation of this pain, dysuria, hematuria, vaginal bleeding or vaginal discharge. She denies any fevers. She denies any abdominal pain. She denies any other symptoms. She states that she has not yet tried any pain medication. There are no exacerbating factors. REVIEW OF SYSTEMS: Constitutional: Denies fever, chills. Eyes: Denies eye pain Ears, Nose, Mouth, & Throat: Denies earache Cardiovascular: Denies chest pain Respiratory: Denies shortness of breath Gastrointestinal: Positive for vomiting. Denies nausea, diarrhea, medic easier, hematemesis, bilious emesis Genitourinary: Positive for right flank pain. Denies hematuria, dysuria, vaginal bleeding, vaginal discharge Skin:Denies a rash MSK: Denies joint pain Neurological: Denies blurred vision Psychiatric: Denies depression PAST MEDICAL HISTORY: As per history of present illness and as reviewed below otherwise noncontributory. SURGICAL HISTORY: As per history of present illness and as reviewed below otherwise noncontributory. SOCIAL HISTORY: As per history of present illness and as reviewed below otherwise noncontributory. FAMILY HISTORY: As per history of present illness and as reviewed below otherwise noncontributory. EXAMINATION OF ORGAN SYSTEMS/BODY AREAS: Constitutional: Blood pressure was 97/68, heart rate 92, respiratory rate 18 with an oxygen saturation of 99% on room air. Temperature 36.1 General: Well-appearing woman who is in no acute distress Psychiatric: Appropriate mood and affect. Eyes: No scleral icterus or conjunctival erythema ENMT: Moist mucous membranes. No pharyngeal erythema Cardiovascular: Regular, rate, and rhythm. No gallops, murmurs, or rubs. Bilateral upper extremity pulses symmetric and intact. No peripheral edema. No JVD. Respiratory: Lungs clear to auscultation bilaterally. No wheezes, rales, or rhonchi. Gastrointestinal: Soft, non-tender, non-distended. Normoactive bowel sounds no rebound or guarding. Genitourinary: No suprapubic tenderness no CVA tenderness. Musculoskeletal: Normal range of motion. Skin: No lesions or abrasions. Neurological: Alert, GCS 15 MEDICAL DECISION MAKING AND COURSE IN THE ED WITH INTERPRETATION/REVIEW OF DIAGNOSTIC STUDIES: This is a 25-year-old with a recent diagnosis of pyelonephritis with admission who was recently discharged who comes to the emergency department with acute recurrent right flank pain associated with vomiting who is afebrile with normal vital signs. At this time we will provide the patient with 1 L of lactated Ringer's, 4 mg of IV morphine for pain relief. Will obtain labs including CBC, BMP, repeat urinalysis and hCG. Obtain a repeat CT abdomen pelvis with IV contrast. On review of patient's prior chart patient did have a CT showing a focal lobar nephronia involving the lateral aspect of the lower pole of the right kidney without any distinct renal abscess. They consulted Dr. Park who recommended IV antibiotics for 2 days, urine culture and then follow-up in 3 to 4 weeks. The patient's urine culture at that time did not grow anything. Laboratory: CBC reveals a normocytic anemia with a hemoglobin 11.2 hematocrit 34.4. BMP reveals hypokalemia at 3.2, hyperglycemia at 73 and hypocalcemia at 8.2 otherwise unremarkable. hCG is negative. Urinalysis was a clean catch and was negative for leukocyte esterase, negative for nitrites, and positive for blood. Interpretation: Hematuria The radiological images were viewed by myself along with reading the report from the radiologist. CT abdomen pelvis with IV contrast does not reveal any renal abscess however it does reveal acute pyelonephritis of the right kidney with evidence of lobar nephronia which is progressed since October 01, 2020. No renal abscess. After imaging I contacted [facility] in [place] and spoke with Dr. Geller who recommends starting the patient on gentamicin and ampicillin, obtaining repeat urine culture and blood cultures and to change antibiotics on discharge. She did not recommend transfer at this time. She recommended follow-up at the recommended time as before. Therefore I did discuss this with the patient she was amenable to admission at this time. I contacted our hospitalist Dr. Cantrell who accepted the patient for admission. DISPOSITION: Patient was admitted to the hospital in stable condition CONDITION: Fair PROCEDURES: None FINAL IMPRESSION(S)/DIAGNOSES: 1. Acute progressive right-sided pyelonephritis Jordy Gifford M.D. right flank Pain Score (Numeric/FACES): 7 - Related Data Allergies Allergy/AdvReac Type Severity Reaction Status Date / Time No Known Allergies Allergy Verified 10/06/20 08:45 Home Meds: Home Meds Ethinyl Estradiol/Drospirenone [Loryna 3 MG-0.02 MG] 1 tab PO DAILY 10/03/20 [History] Past Medical History - Past Health History Medical/Surgical History: Denies Medical/Surgical History HEENT History: Reports: None Cardiovascular History: Reports: None Respiratory History: Reports: None Gastrointestinal History: Reports: GERD, Other (See Below) Other Gastrointestinal History: acid reflux Genitourinary History: Reports: None 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: Musculoskeletal History: Reports: None Neurological History: Reports: Migraines Other Neuro History: Pt states hx migraines x1 year Psychiatric History: Reports: None Endocrine/Metabolic History: Reports: Obesity/BMI 30+ Hematologic History: Reports: None Immunologic History: Reports: None Oncologic (Cancer) History: Reports: None Dermatologic History: Reports: None - Infectious Disease History Infectious Disease History: Reports: Chicken Pox, Shingles - Past Surgical History HEENT Surgical History: Reports: Oral Surgery, Tonsillectomy Other HEENT Surgeries/Procedures: wisdom teeth extraction GI Surgical History: Reports: None Female Surgical History: Reports: Section Neurological Surgical History: Reports: None Social & Family History - Family History Family Medical History: No Pertinent Family History OBGYN: Reports: Neurological: Reports: CVA Oncologic: Reports: Ovarian - Tobacco Use Tobacco Use Status *Q: Never Tobacco User Second Hand Smoke Exposure: No - Caffeine Use Caffeine Use: Reports: None - Recreational Drug Use Recreational Drug Use: No ED ROS GENERAL - Review of Systems Review Of Systems: See Below ED EXAM, GENERAL - Physical Exam Exam: See Below Course - Vital Signs Last Recorded V/S: Last Vital Signs Temp 36.1 C 10/06/20 08:43 Pulse 71 10/06/20 10:26 Resp 17 10/06/20 10:26 BP 103/72 10/06/20 10:26 Pulse Ox 98 10/06/20 10:26 - Orders/Labs/Meds Orders: Active Orders 24 hr Category Date Time Status Admission Status [Patient Status] [ADT] Stat ADT 10/06/20 13:50 Active CORONAVIRUS COVID-19 VALDO [MOLEC] Stat Lab 10/06/20 13:07 Ordered CULTURE BLOOD [BC] Stat Lab 10/06/20 13:17 Received CULTURE BLOOD [BC] Stat Lab 10/06/20 13:23 Received CULTURE URINE [MREF] Stat Lab 10/06/20 09:41 Received Blood Culture x2 Reflex Set [OM.PC] Stat Oth 10/06/20 13:00 Ordered Labs: Laboratory Tests 10/06/20 10/06/20 10/06/20 Range/Units 09:40 09:40 09:41 WBC 6.57 (4.0-11.0) K/uL RBC 4.12 L (4.30-5.90) M/uL Hgb 11.2 L (12.0-16.0) g/dL Hct 34.4 L (36.0-46.0) % MCV 83.5 (80.0-98.0) fL MCH 27.2 (27.0-32.0) pg MCHC 32.6 (31.0-37.0) g/dL RDW Std Deviation 41.0 (28.0-62.0) fl RDW Coeff of Toby 14 (11.0-15.0) % Plt Count 268 (150-400) K/uL MPV 9.50 (7.40-12.00) fL Neut % (Auto) 59.0 (48.0-80.0) % Lymph % (Auto) 34.2 (16.0-40.0) % [place] % (Auto) 5.5 (0.0-15.0) % Eos % (Auto) 1.1 (0.0-7.0) % Baso % (Auto) 0.2 (0.0-1.5) % Neut # (Auto) 3.9 (1.4-5.7) K/uL Lymph # (Auto) 2.3 (0.6-2.4) K/uL [place] # (Auto) 0.4 (0.0-0.8) K/uL Eos # (Auto) 0.1 (0.0-0.7) K/uL Baso # (Auto) 0.0 (0.0-0.1) K/uL Nucleated RBC % 0.0 /100WBC Nucleated RBCs # 0 K/uL Sodium 139 (136-145) mmol/L Potassium 3.2 L (3.5-5.1) mmol/L Chloride 103 (98-107) mmol/L Carbon Dioxide 26.6 (21.0-32.0) mmol/L BUN 10 (7.0-18.0) mg/dL Creatinine 1.0 (0.6-1.0) mg/dL Est Cr Clr Drug Dosing 60.70 mL/min Estimated GFR (MDRD) > 60.0 ml/min Glucose 73 L (74-106) mg/dL Calcium 8.2 L (8.5-10.1) mg/dL Urine Color YELLOW Urine Appearance CLEAR Urine pH 6.0 (5.0-8.0) Ur Specific Brewster >= 1.030 (1.001-1.035) Urine Protein NEGATIVE (NEGATIVE) mg/dL Urine Glucose (UA) NEGATIVE (NEGATIVE) mg/dL Urine Ketones NEGATIVE (NEGATIVE) mg/dL Urine Occult Blood MODERATE H (NEGATIVE) Urine Nitrite NEGATIVE (NEGATIVE) Urine Bilirubin NEGATIVE (NEGATIVE) Urine Urobilinogen 0.2 (<2.0) EU/dL Ur Leukocyte Esterase NEGATIVE (NEGATIVE) Urine RBC 1-2 (0-2/HPF) Urine WBC 0-1 (0-5/HPF) Ur Epithelial Cells FEW (NONE-FEW) Urine Bacteria FEW (NEGATIVE) Urine HCG, Qual (NEGATIVE) 10/06/20 Range/Units 09:41 WBC (4.0-11.0) K/uL RBC (4.30-5.90) M/uL Hgb (12.0-16.0) g/dL Hct (36.0-46.0) % MCV (80.0-98.0) fL MCH (27.0-32.0) pg MCHC (31.0-37.0) g/dL RDW Std Deviation (28.0-62.0) fl RDW Coeff of Toby (11.0-15.0) % Plt Count (150-400) K/uL MPV (7.40-12.00) fL Neut % (Auto) (48.0-80.0) % Lymph % (Auto) (16.0-40.0) % [place] % (Auto) (0.0-15.0) % Eos % (Auto) (0.0-7.0) % Baso % (Auto) (0.0-1.5) % Neut # (Auto) (1.4-5.7) K/uL Lymph # (Auto) (0.6-2.4) K/uL [place] # (Auto) (0.0-0.8) K/uL Eos # (Auto) (0.0-0.7) K/uL Baso # (Auto) (0.0-0.1) K/uL Nucleated RBC % /100WBC Nucleated RBCs # K/uL Sodium (136-145) mmol/L Potassium (3.5-5.1) mmol/L Chloride (98-107) mmol/L Carbon Dioxide (21.0-32.0) mmol/L BUN (7.0-18.0) mg/dL Creatinine (0.6-1.0) mg/dL Est Cr Clr Drug Dosing mL/min Estimated GFR (MDRD) ml/min Glucose (74-106) mg/dL Calcium (8.5-10.1) mg/dL Urine Color Urine Appearance Urine pH (5.0-8.0) Ur Specific Brewster (1.001-1.035) Urine Protein (NEGATIVE) mg/dL Urine Glucose (UA) (NEGATIVE) mg/dL Urine Ketones (NEGATIVE) mg/dL Urine Occult Blood (NEGATIVE) Urine Nitrite (NEGATIVE) Urine Bilirubin (NEGATIVE) Urine Urobilinogen (<2.0) EU/dL Ur Leukocyte Esterase (NEGATIVE) Urine RBC (0-2/HPF) Urine WBC (0-5/HPF) Ur Epithelial Cells (NONE-FEW) Urine Bacteria (NEGATIVE) Urine HCG, Qual NEGATIVE (NEGATIVE) Meds: Medications Discontinued Medications Generic Name Dose Route Start Last Admin Trade Name Freq PRN Reason Stop Dose Admin Lactated Ringer's 1,000 mls @ 999 mls/hr 10/06/20 09:33 10/06/20 09:41 Ringers, Lactated IV 10/06/20 10:33 999 mls/hr .BOLUS ONE Administration Ampicillin Sodium 2 gm/ Sodium 100 mls @ 200 mls/hr 10/06/20 13:03 10/06/20 13:38 Chloride IV 10/06/20 13:32 Not Given ONETIME ONE Gentamicin Sulfate 80 mg/ 52 mls @ 100 mls/hr 10/06/20 13:03 10/06/20 13:44 Sodium Chloride IV 10/06/20 13:34 100 mls/hr ONETIME ONE Administration Ampicillin Sodium 2 gm/ Sodium 100 mls @ 200 mls/hr 10/06/20 13:30 10/06/20 13:46 Chloride IV 10/06/20 13:59 200 mls/hr ONETIME ONE Administration Morphine Sulfate 4 mg 10/06/20 09:33 10/06/20 09:41 Morphine 4 Mg/Ml Syringe IVPUSH 10/06/20 09:34 4 mg ONETIME ONE Administration Potassium Chloride 40 meq 10/06/20 13:01 10/06/20 13:37 Potassium Chloride 10% 20 Meq/15 Ml Soln 30 Ml Ud Cup PO 10/06/20 13:02 40 meq ONETIME ONE Administration Departure - Departure Time of Disposition: 14:30 Disposition: Admitted As Inpatient 64 Condition: Fair Clinical Impression: Pyelonephritis - Discharge Information Referrals: Lissa Villavicencio MD [Primary Care Provider] - Sepsis Event Note (ED) - Evaluation Sepsis Screening Result: No Definite Risk - Focused Exam Vital Signs: Vital Signs Temp Pulse Resp BP Pulse Ox 10/06/20 10:26 71 17 103/72 98 10/06/20 08:43 36.1 C 92 18 97/68 99 - My Orders Last 24 Hours: My Active Orders 10/06/20 09:41 CULTURE URINE [MREF] Stat 10/06/20 13:00 Blood Culture x2 Reflex Set [OM.PC] Stat 10/06/20 13:07 CORONAVIRUS COVID-19 VALDO [MOLEC] Stat 10/06/20 13:17 CULTURE BLOOD [BC] Stat 10/06/20 13:23 CULTURE BLOOD [BC] Stat 10/06/20 13:50 Admission Status [Patient Status] [ADT] Stat - Assessment/Plan Last 24 Hours: My Active Orders 10/06/20 09:41 CULTURE URINE [MREF] Stat 10/06/20 13:00 Blood Culture x2 Reflex Set [OM.PC] Stat 10/06/20 13:07 CORONAVIRUS COVID-19 VALDO [MOLEC] Stat 10/06/20 13:17 CULTURE BLOOD [BC] Stat 10/06/20 13:23 CULTURE BLOOD [BC] Stat 10/06/20 13:50 Admission Status [Patient Status] [ADT] Stat
[2020-10-06] MEDS ORDERED: Ondansetron 4 MG/2 ML SDV IVPUSH PRN (15:32)
[2020-10-06] MEDS ORDERED: Acetaminophen 325 MG Tab PO PRN (15:32)
--- NOTE | 2020-10-06 15:56 | PCM.HP.2 ---
H&P History of Present Illness - General Date of Service: 10/06/20 Admit Problem/Dx: Admission Diagnosis/Problem Admission Diagnosis/Problem Pyelonephritis Source of Information: Patient History Limitations: Reports: No Limitations - History of Present Illness Initial Comments - Free Text/Narative: This 25-year-old female with past medical history of migraines presented to the ER today with concerns of right flank pain. She was recently discharged from the hospital for pyelonephritis on 827 after feeling improved. Patient was discharged home on Cipro. Urine culture grew mixed raulito less than 1000 colonies. Patient reports pain started coming on Tuesday and has become more progressive since then. Patient reports that since last night she has had constant right flank pain 8 out of 10. She denies any fevers. She reports she had some vomiting due to her pain being severe. She denies any urinary symptoms such as frequency urgency or dysuria. Denies any chest pain shortness of breath sinus congestion. She denies any headache or neurologic findings. She denies any tobacco use recreational drug use and no alcohol use. In the ER no leukocytosis noted WBC 6000. Hemoglobin 11.2. Potassium 3.2 sodium 139 BUN 10 creatinine 1. Glucose 73. UA negative but she has been on antibiotics. hCG negative Covid swab negative. Abdominal CT obtained which shows no renal abscess but acute pyelonephritis in the right kidney with evidence of lobar nephronia. This shows further progression compared to October 01, 2020. No obstructive uropathy or perinephric pathology. ER physician did contact urology in [place] for recommendations due to return illness while on antibiotics. Dr. Geller recommended starting the patient on gentamicin and ampicillin repeating urine culture and blood cultures. She did not recommend transfer but follow-up at recommended time as previously scheduled. Patient to be admitted inpatient for acute pyelonephritis. right flank Pain Score (Numeric/FACES): 7 - Related Data Allergies/Adverse Reactions: Allergies Allergy/AdvReac Type Severity Reaction Status Date / Time No Known Allergies Allergy Verified 10/06/20 08:45 Home Medications: Home Meds Ethinyl Estradiol/Drospirenone [Loryna 3 MG-0.02 MG] 1 tab PO DAILY 10/03/20 [History] Past Medical History - Past Health History Medical/Surgical History: Denies Medical/Surgical History HEENT History: Reports: None Cardiovascular History: Reports: None Respiratory History: Reports: None Gastrointestinal History: Reports: GERD, Other (See Below) Other Gastrointestinal History: acid reflux Genitourinary History: Reports: None OPERATIONS ASST History: Reports: Musculoskeletal History: Reports: None Neurological History: Reports: Migraines Other Neuro History: Pt states hx migraines x1 year Psychiatric History: Reports: None Endocrine/Metabolic History: Reports: Obesity/BMI 30+ Hematologic History: Reports: None Immunologic History: Reports: None Oncologic (Cancer) History: Reports: None Dermatologic History: Reports: None - Infectious Disease History Infectious Disease History: Reports: Chicken Pox, Shingles - Past Surgical History HEENT Surgical History: Reports: Oral Surgery, Tonsillectomy Other HEENT Surgeries/Procedures: wisdom teeth extraction GI Surgical History: Reports: None Female Surgical History: Reports: Section Neurological Surgical History: Reports: None Social & Family History - Family History Family Medical History: No Pertinent Family History OBGYN: Reports: Neurological: Reports: CVA Oncologic: Reports: Ovarian - Tobacco Use Tobacco Use Status *Q: Never Tobacco User Second Hand Smoke Exposure: No - Caffeine Use Caffeine Use: Reports: None - Recreational Drug Use Recreational Drug Use: No H&P Review of Systems - Review of Systems: Review Of Systems: See Below General: Reports: Chills, Decreased Appetite. Denies: Fever HEENT: Reports: No Symptoms. Denies: Headaches, Sinus Congestion, Sore Throat Pulmonary: Reports: No Symptoms. Denies: Shortness of Breath, Pleuritic Chest Pain Cardiovascular: Reports: No Symptoms. Denies: Chest Pain, Dyspnea on Exertion Gastrointestinal: Reports: Abdominal Pain, Diarrhea (Stools are softer). Denies: Nausea, Vomiting Genitourinary: Reports: No Symptoms. Denies: Dysuria, Frequency, Burning, Pain Musculoskeletal: Reports: No Symptoms. Denies: Neck Pain Skin: Reports: No Symptoms Psychiatric: Reports: No Symptoms Neurological: Reports: No Symptoms Hematologic/Lymphatic: Reports: No Symptoms Immunologic: Reports: No Symptoms Exam - Exam Exam: See Below - Vital Signs Vital Signs: Last Vital Signs Temp 97.0 F 10/06/20 08:43 Pulse 105 H 10/06/20 14:46 Resp 17 10/06/20 14:46 BP 113/69 10/06/20 14:46 Pulse Ox 100 10/06/20 14:46 Weight: 56.699 kg - Exam Quality Assessment: DVT Prophylaxis. No: Supplemental Oxygen General: Alert, Oriented, Cooperative HEENT: Conjunctiva Clear, Mucosa Moist & [place], Posterior Pharynx Clear Lungs: Clear to Auscultation, Normal Respiratory Effort Cardiovascular: Regular Rate, Regular Rhythm GI/Abdominal Exam: Normal Bowel Sounds, Soft, Tender (Mild tenderness to right abdomen) Back Exam: Normal Inspection, CVA Tenderness (R). No: CVA Tenderness (L) Extremities: Normal Inspection, Normal Range of Motion, Non-Tender, No Pedal Edema Neuro Extensive - Mental Status: Alert, Oriented x3, Normal Mood/Affect Psychiatric: Alert, Normal Affect, Normal Mood - Patient Data Lab Results Last 24 hrs: Laboratory Results - last 24 hr 10/06/20 10/06/20 10/06/20 Range/Units 09:40 09:40 09:41 WBC 6.57 (4.0-11.0) K/uL RBC 4.12 L (4.30-5.90) M/uL Hgb 11.2 L (12.0-16.0) g/dL Hct 34.4 L (36.0-46.0) % MCV 83.5 (80.0-98.0) fL MCH 27.2 (27.0-32.0) pg MCHC 32.6 (31.0-37.0) g/dL RDW Std Deviation 41.0 (28.0-62.0) fl RDW Coeff of Toby 14 (11.0-15.0) % Plt Count 268 (150-400) K/uL MPV 9.50 (7.40-12.00) fL Neut % (Auto) 59.0 (48.0-80.0) % Lymph % (Auto) 34.2 (16.0-40.0) % [place] % (Auto) 5.5 (0.0-15.0) % Eos % (Auto) 1.1 (0.0-7.0) % Baso % (Auto) 0.2 (0.0-1.5) % Neut # (Auto) 3.9 (1.4-5.7) K/uL Lymph # (Auto) 2.3 (0.6-2.4) K/uL [place] # (Auto) 0.4 (0.0-0.8) K/uL Eos # (Auto) 0.1 (0.0-0.7) K/uL Baso # (Auto) 0.0 (0.0-0.1) K/uL Nucleated RBC % 0.0 /100WBC Nucleated RBCs # 0 K/uL Sodium 139 (136-145) mmol/L Potassium 3.2 L (3.5-5.1) mmol/L Chloride 103 (98-107) mmol/L Carbon Dioxide 26.6 (21.0-32.0) mmol/L BUN 10 (7.0-18.0) mg/dL Creatinine 1.0 (0.6-1.0) mg/dL Est Cr Clr Drug Dosing 60.70 mL/min Estimated GFR (MDRD) > 60.0 ml/min Glucose 73 L (74-106) mg/dL Calcium 8.2 L (8.5-10.1) mg/dL Urine Color YELLOW Urine Appearance CLEAR Urine pH 6.0 (5.0-8.0) Ur Specific [place] >= 1.030 (1.001-1.035) Urine Protein NEGATIVE (NEGATIVE) mg/dL Urine Glucose (UA) NEGATIVE (NEGATIVE) mg/dL Urine Ketones NEGATIVE (NEGATIVE) mg/dL Urine Occult Blood MODERATE H (NEGATIVE) Urine Nitrite NEGATIVE (NEGATIVE) Urine Bilirubin NEGATIVE (NEGATIVE) Urine Urobilinogen 0.2 (<2.0) EU/dL Ur Leukocyte Esterase NEGATIVE (NEGATIVE) Urine RBC 1-2 (0-2/HPF) Urine WBC 0-1 (0-5/HPF) Ur Epithelial Cells FEW (NONE-FEW) Urine Bacteria FEW (NEGATIVE) Urine HCG, Qual (NEGATIVE) SARS-CoV-2 RNA (VALDO) (NEGATIVE) 10/06/20 10/06/20 Range/Units 09:41 14:22 WBC (4.0-11.0) K/uL RBC (4.30-5.90) M/uL Hgb (12.0-16.0) g/dL Hct (36.0-46.0) % MCV (80.0-98.0) fL MCH (27.0-32.0) pg MCHC (31.0-37.0) g/dL RDW Std Deviation (28.0-62.0) fl RDW Coeff of Toby (11.0-15.0) % Plt Count (150-400) K/uL MPV (7.40-12.00) fL Neut % (Auto) (48.0-80.0) % Lymph % (Auto) (16.0-40.0) % [place] % (Auto) (0.0-15.0) % Eos % (Auto) (0.0-7.0) % Baso % (Auto) (0.0-1.5) % Neut # (Auto) (1.4-5.7) K/uL Lymph # (Auto) (0.6-2.4) K/uL [place] # (Auto) (0.0-0.8) K/uL Eos # (Auto) (0.0-0.7) K/uL Baso # (Auto) (0.0-0.1) K/uL Nucleated RBC % /100WBC Nucleated RBCs # K/uL Sodium (136-145) mmol/L Potassium (3.5-5.1) mmol/L Chloride (98-107) mmol/L Carbon Dioxide (21.0-32.0) mmol/L BUN (7.0-18.0) mg/dL Creatinine (0.6-1.0) mg/dL Est Cr Clr Drug Dosing mL/min Estimated GFR (MDRD) ml/min Glucose (74-106) mg/dL Calcium (8.5-10.1) mg/dL Urine Color Urine Appearance Urine pH (5.0-8.0) Ur Specific [place] (1.001-1.035) Urine Protein (NEGATIVE) mg/dL Urine Glucose (UA) (NEGATIVE) mg/dL Urine Ketones (NEGATIVE) mg/dL Urine Occult Blood (NEGATIVE) Urine Nitrite (NEGATIVE) Urine Bilirubin (NEGATIVE) Urine Urobilinogen (<2.0) EU/dL Ur Leukocyte Esterase (NEGATIVE) Urine RBC (0-2/HPF) Urine WBC (0-5/HPF) Ur Epithelial Cells (NONE-FEW) Urine Bacteria (NEGATIVE) Urine HCG, Qual NEGATIVE (NEGATIVE) SARS-CoV-2 RNA (VALDO) NEGATIVE (NEGATIVE) Result Diagrams: 10/06/20 09:40 10/06/20 09:40 Sepsis Event Note - Evaluation Sepsis Screening Result: No Definite Risk - Focused Exam Vital Signs: Vital Signs Temp Pulse Resp BP Pulse Ox 10/06/20 14:46 105 H 17 113/69 100 10/06/20 13:45 104/68 10/06/20 10:26 71 17 103/72 98 10/06/20 08:43 97.0 F 92 18 97/68 99 - Problem List (1) Pyelonephritis SNOMED Code(s): 82548331 ICD Code: N12 - TUBULO-INTERSTITIAL NEPHRITIS, NOT SPCF ACUTE OR CHRONIC Status: Acute Current Visit: Yes Problem List Initiated/Reviewed/Updated: Yes Orders Last 24hrs: Active Orders 24 hr Category Date Time Status Admission Status [Patient Status] [ADT] Stat ADT 10/06/20 13:50 Active Intake and Output [RC] QSHIFT Care 10/06/20 15:32 Active Oxygen Therapy [RC] PRN Care 10/06/20 15:32 Active Up to Chair [RC] ASDIRECTED Care 10/06/20 15:32 Active VTE/DVT Education [RC] PER UNIT ROUTINE Care 10/06/20 15:32 Active Vital Signs [RC] Q4H Care 10/06/20 15:32 Active Regular Diet [DIET] Diet 10/06/20 Lunch Active BASIC METABOLIC PANEL,BMP [CHEM] AM Lab 10/07/20 05:11 Ordered BASIC METABOLIC PANEL,BMP [CHEM] AM Lab 10/08/20 05:11 Ordered BASIC METABOLIC PANEL,BMP [CHEM] AM Lab 10/09/20 05:11 Ordered CBC WITH AUTO DIFF [HEME] AM Lab 10/07/20 05:11 Ordered CBC WITH AUTO DIFF [HEME] AM Lab 10/08/20 05:11 Ordered CBC WITH AUTO DIFF [HEME] AM Lab 10/09/20 05:11 Ordered CULTURE BLOOD [BC] Stat Lab 10/06/20 13:17 Received CULTURE BLOOD [BC] Stat Lab 10/06/20 13:23 Received CULTURE URINE [MREF] Stat Lab 10/06/20 09:41 Received Acetaminophen [TylenoL] Med 10/06/20 15:32 Active 650 mg PO Q4H PRN Ampicillin 2 gm Med 10/06/20 19:30 Active Sodium Chloride 0.9% [Normal Saline] 100 ml IV Q6H Enoxaparin [Lovenox] Med 10/06/20 16:00 Active 40 mg SUBCUT Q24H Gentamicin 320 mg Med 10/06/20 22:00 Active Sodium Chloride 0.9% [Normal Saline] 100 ml IV Q24H Lactated Ringers [Ringers, Lactated] 1,000 ml Med 10/06/20 15:45 Active IV Q8H Ondansetron [Zofran] Med 10/06/20 15:32 Active 4 mg IVPUSH Q4H PRN Pharmacy to Dose - Gentamicin Med 10/06/20 15:30 Active 1 dose .XX ASDIRECTED Blood Culture x2 Reflex Set [OM.PC] Stat Oth 10/06/20 13:00 Ordered Resuscitation Status Routine Resus Stat 10/06/20 15:32 Ordered Medication Orders Acetaminophen (Acetaminophen 325 Mg Tab) 650 mg PO Q4H PRN PRN Reason: Pain (Mild 1-3)/fever Enoxaparin Sodium (Enoxaparin 40 Mg/0.4 Ml Syringe) 40 mg SUBCUT Q24H DANAE Gentamicin Sulfate (Pharmacy To Dose - Gentamicin) 1 dose .XX ASDIRECTED DANAE Ampicillin Sodium 2 gm/ Sodium (Chloride) 100 mls @ 200 mls/hr IV Q6H DANAE Lactated Ringer's (Ringers, Lactated) 1,000 mls @ 125 mls/hr IV Q8H DANAE Gentamicin Sulfate 320 mg/ (Sodium Chloride) 108 mls @ 216 mls/hr IV Q24H DANAE Ondansetron HCl (Ondansetron 4 Mg/2 Ml Sdv) 4 mg IVPUSH Q4H PRN PRN Reason: Nausea Assessment/Plan Comment:: This 25-year-old female admitted for acute pyelonephritis 1. Acute pyelonephritis, right kidney -Continue ampicillin 2 g IV every 6 hours -Continue gentamicin, pharmacy to dose, appreciate their assistance -Blood cultures and urine cultures pending -Morphine and oxycodone as needed pain -I's and O's -Zofran as needed nausea -LR 125 for maintenance IV fluids -Regular diet as tolerated VTE prophylaxis: Lovenox GI prophylaxis: Protonix CODE STATUS: Full code Dispo: 2 to 3 days pending improvement And culture results
[2020-10-06] MEDS ORDERED: Enoxaparin 40 MG/0.4 ML Syringe SUBCUT SCH (16:00)
[2020-10-06] MEDS: Lactated Ringers 1,000 ML IV SCH (17:03)
[2020-10-06] MEDS: Pantoprazole 40 MG in Sodium Chloride 0.9% 10 ML IV SCH (17:05)
[2020-10-06] MEDS ORDERED: Iopamidol 755 MG/ML 500 ML Multipack Bottle IVPUSH STA (17:14)
[2020-10-06] MEDS: Ampicillin 2 GM in Sodium Chloride 0.9% 100 ML IV SCH (18:50)
[2020-10-06] MEDS: Morphine 2 MG/ML SYRINGE IVPUSH PRN (23:26)
[2020-10-07] MEDS: Morphine 2 MG/ML SYRINGE IVPUSH PRN (02:24)
[2020-10-07] MEDS: Lactated Ringers 1,000 ML IV SCH ×2 (02:27→18:31)
[2020-10-07] MEDS: Ampicillin 2 GM in Sodium Chloride 0.9% 100 ML IV SCH ×4 (03:02→19:52)
[2020-10-07 06:55] LABS: BLOOD UREA NITROGEN,BUN 7 mg/dL (7.0-18.0); CARBON DIOXIDE,CO2 26.9 mmol/L (21.0-32.0); CHLORIDE,CL 105 mmol/L (98-107); GLUCOSE RANDOM 84 mg/dL (74-106); POTASSIUM,K 3.7 mmol/L (3.5-5.1); SODIUM,NA 140 mmol/L (136-145)
[2020-10-07] MEDS: oxyCODONE 5 MG Tab PO PRN (08:14)
--- NOTE | 2020-10-07 08:16 | PCM.PN ---
- General Info Date of Service: 10/07/20 Admission Dx/Problem (Free Text): Admission Diagnosis/Problem Admission Diagnosis/Problem Pyelonephritis Subjective Update: Continues to have mild abdominal pain and right flank pain. Denies any chest pain or shortness of breath. Denies any dysuria frequency urgency. But does report migraine and mild nausea today. Functional Status: Reports: Ambulating, Urinating. Denies: Pain Controlled - Review of Systems General: Reports: Fatigue, Malaise HEENT: Reports: Headaches (migraine). Denies: Sore Throat, Visual Changes Pulmonary: Reports: No Symptoms. Denies: Shortness of Breath Cardiovascular: Reports: No Symptoms. Denies: Chest Pain Gastrointestinal: Reports: Abdominal Pain (R sided/flank), Decreased Appetite. Denies: Diarrhea Genitourinary: Reports: Flank Pain. Denies: Dysuria, Frequency Musculoskeletal: Reports: No Symptoms. Denies: Neck Pain Skin: Reports: No Symptoms Neurological: Reports: No Symptoms Psychiatric: Reports: No Symptoms - Patient Data Vitals - Most Recent: Last Vital Signs Temp 97.0 F 10/07/20 07:53 Pulse 69 10/07/20 07:53 Resp 22 H 10/07/20 07:53 BP 88/52 L 10/07/20 07:53 Pulse Ox 97 10/07/20 07:53 Weight - Most Recent: 57.289 kg I&O - Last 24 Hours: Intake & Output 10/06/20 10/07/20 10/07/20 22:59 06:59 14:59 Intake Total 232 Balance 232 Lab Results Last 24 Hours: Laboratory Results - last 24 hr 10/06/20 10/06/20 10/06/20 Range/Units 09:40 09:40 09:41 WBC 6.57 (4.0-11.0) K/uL RBC 4.12 L (4.30-5.90) M/uL Hgb 11.2 L (12.0-16.0) g/dL Hct 34.4 L (36.0-46.0) % MCV 83.5 (80.0-98.0) fL MCH 27.2 (27.0-32.0) pg MCHC 32.6 (31.0-37.0) g/dL RDW Std Deviation 41.0 (28.0-62.0) fl RDW Coeff of Toby 14 (11.0-15.0) % Plt Count 268 (150-400) K/uL MPV 9.50 (7.40-12.00) fL Neut % (Auto) 59.0 (48.0-80.0) % Lymph % (Auto) 34.2 (16.0-40.0) % [place] % (Auto) 5.5 (0.0-15.0) % Eos % (Auto) 1.1 (0.0-7.0) % Baso % (Auto) 0.2 (0.0-1.5) % Neut # (Auto) 3.9 (1.4-5.7) K/uL Lymph # (Auto) 2.3 (0.6-2.4) K/uL [place] # (Auto) 0.4 (0.0-0.8) K/uL Eos # (Auto) 0.1 (0.0-0.7) K/uL Baso # (Auto) 0.0 (0.0-0.1) K/uL Nucleated RBC % 0.0 /100WBC Nucleated RBCs # 0 K/uL Sodium 139 (136-145) mmol/L Potassium 3.2 L (3.5-5.1) mmol/L Chloride 103 (98-107) mmol/L Carbon Dioxide 26.6 (21.0-32.0) mmol/L BUN 10 (7.0-18.0) mg/dL Creatinine 1.0 (0.6-1.0) mg/dL Est Cr Clr Drug Dosing 60.70 mL/min Estimated GFR (MDRD) > 60.0 ml/min Glucose 73 L (74-106) mg/dL Calcium 8.2 L (8.5-10.1) mg/dL Urine Color YELLOW Urine Appearance CLEAR Urine pH 6.0 (5.0-8.0) Ur Specific [place] >= 1.030 (1.001-1.035) Urine Protein NEGATIVE (NEGATIVE) mg/dL Urine Glucose (UA) NEGATIVE (NEGATIVE) mg/dL Urine Ketones NEGATIVE (NEGATIVE) mg/dL Urine Occult Blood MODERATE H (NEGATIVE) Urine Nitrite NEGATIVE (NEGATIVE) Urine Bilirubin NEGATIVE (NEGATIVE) Urine Urobilinogen 0.2 (<2.0) EU/dL Ur Leukocyte Esterase NEGATIVE (NEGATIVE) Urine RBC 1-2 (0-2/HPF) Urine WBC 0-1 (0-5/HPF) Ur Epithelial Cells FEW (NONE-FEW) Urine Bacteria FEW (NEGATIVE) Urine HCG, Qual (NEGATIVE) SARS-CoV-2 RNA (VALDO) (NEGATIVE) 10/06/20 10/06/20 10/07/20 Range/Units 09:41 14:22 05:27 WBC 4.69 (4.0-11.0) K/uL RBC 3.87 L (4.30-5.90) M/uL Hgb 10.5 L (12.0-16.0) g/dL Hct 32.2 L (36.0-46.0) % MCV 83.2 (80.0-98.0) fL MCH 27.1 (27.0-32.0) pg MCHC 32.6 (31.0-37.0) g/dL RDW Std Deviation 41.2 (28.0-62.0) fl RDW Coeff of Toby 14 (11.0-15.0) % Plt Count 245 (150-400) K/uL MPV 9.80 (7.40-12.00) fL Neut % (Auto) 51.5 (48.0-80.0) % Lymph % (Auto) 39.4 (16.0-40.0) % [place] % (Auto) 6.8 (0.0-15.0) % Eos % (Auto) 1.9 (0.0-7.0) % Baso % (Auto) 0.4 (0.0-1.5) % Neut # (Auto) 2.4 (1.4-5.7) K/uL Lymph # (Auto) 1.9 (0.6-2.4) K/uL [place] # (Auto) 0.3 (0.0-0.8) K/uL Eos # (Auto) 0.1 (0.0-0.7) K/uL Baso # (Auto) 0.0 (0.0-0.1) K/uL Nucleated RBC % 0.0 /100WBC Nucleated RBCs # 0 K/uL Sodium (136-145) mmol/L Potassium (3.5-5.1) mmol/L Chloride (98-107) mmol/L Carbon Dioxide (21.0-32.0) mmol/L BUN (7.0-18.0) mg/dL Creatinine (0.6-1.0) mg/dL Est Cr Clr Drug Dosing mL/min Estimated GFR (MDRD) ml/min Glucose (74-106) mg/dL Calcium (8.5-10.1) mg/dL Urine Color Urine Appearance Urine pH (5.0-8.0) Ur Specific [place] (1.001-1.035) Urine Protein (NEGATIVE) mg/dL Urine Glucose (UA) (NEGATIVE) mg/dL Urine Ketones (NEGATIVE) mg/dL Urine Occult Blood (NEGATIVE) Urine Nitrite (NEGATIVE) Urine Bilirubin (NEGATIVE) Urine Urobilinogen (<2.0) EU/dL Ur Leukocyte Esterase (NEGATIVE) Urine RBC (0-2/HPF) Urine WBC (0-5/HPF) Ur Epithelial Cells (NONE-FEW) Urine Bacteria (NEGATIVE) Urine HCG, Qual NEGATIVE (NEGATIVE) SARS-CoV-2 RNA (VALDO) NEGATIVE (NEGATIVE) 10/07/20 Range/Units 05:27 WBC (4.0-11.0) K/uL RBC (4.30-5.90) M/uL Hgb (12.0-16.0) g/dL Hct (36.0-46.0) % MCV (80.0-98.0) fL MCH (27.0-32.0) pg MCHC (31.0-37.0) g/dL RDW Std Deviation (28.0-62.0) fl RDW Coeff of Toby (11.0-15.0) % Plt Count (150-400) K/uL MPV (7.40-12.00) fL Neut % (Auto) (48.0-80.0) % Lymph % (Auto) (16.0-40.0) % [place] % (Auto) (0.0-15.0) % Eos % (Auto) (0.0-7.0) % Baso % (Auto) (0.0-1.5) % Neut # (Auto) (1.4-5.7) K/uL Lymph # (Auto) (0.6-2.4) K/uL [place] # (Auto) (0.0-0.8) K/uL Eos # (Auto) (0.0-0.7) K/uL Baso # (Auto) (0.0-0.1) K/uL Nucleated RBC % /100WBC Nucleated RBCs # K/uL Sodium 140 (136-145) mmol/L Potassium 3.7 (3.5-5.1) mmol/L Chloride 105 (98-107) mmol/L Carbon Dioxide 26.9 (21.0-32.0) mmol/L BUN 7 (7.0-18.0) mg/dL Creatinine 0.9 (0.6-1.0) mg/dL Est Cr Clr Drug Dosing 67.44 mL/min Estimated GFR (MDRD) > 60.0 ml/min Glucose 84 (74-106) mg/dL Calcium 7.9 L (8.5-10.1) mg/dL Urine Color Urine Appearance Urine pH (5.0-8.0) Ur Specific [place] (1.001-1.035) Urine Protein (NEGATIVE) mg/dL Urine Glucose (UA) (NEGATIVE) mg/dL Urine Ketones (NEGATIVE) mg/dL Urine Occult Blood (NEGATIVE) Urine Nitrite (NEGATIVE) Urine Bilirubin (NEGATIVE) Urine Urobilinogen (<2.0) EU/dL Ur Leukocyte Esterase (NEGATIVE) Urine RBC (0-2/HPF) Urine WBC (0-5/HPF) Ur Epithelial Cells (NONE-FEW) Urine Bacteria (NEGATIVE) Urine HCG, Qual (NEGATIVE) SARS-CoV-2 RNA (VALDO) (NEGATIVE) Med Orders - Current: Current Medications Acetaminophen (Acetaminophen 325 Mg Tab) 650 mg PO Q4H PRN PRN Reason: Pain (Mild 1-3)/fever Enoxaparin Sodium (Enoxaparin 40 Mg/0.4 Ml Syringe) 40 mg SUBCUT Q24H [facility] Last Admin: 10/06/20 17:07 Dose: 40 mg Documented by: Gentamicin Sulfate (Pharmacy To Dose - Gentamicin) 1 dose .XX ASDIRECTED [facility] Ampicillin Sodium 2 gm/ Sodium (Chloride) 100 mls @ 200 mls/hr IV Q6H [facility] Last Admin: 10/07/20 03:02 Dose: 200 mls/hr Documented by: Lactated Ringer's (Ringers, Lactated) 1,000 mls @ 125 mls/hr IV Q8H [facility] Last Admin: 10/07/20 02:27 Dose: 125 mls/hr Documented by: Gentamicin Sulfate 320 mg/ (Sodium Chloride) 108 mls @ 216 mls/hr IV Q24H [facility] Last Admin: 10/06/20 22:49 Dose: 216 mls/hr Documented by: Pantoprazole Sodium 40 mg/ (Sodium Chloride) 10 mls @ 300 mls/hr IV Q24H DANAE Last Admin: 10/06/20 17:05 Dose: 300 mls/hr Documented by: Morphine Sulfate (Morphine 2 Mg/Ml Syringe) 2 mg IVPUSH Q2H PRN PRN Reason: Pain Last Admin: 10/07/20 02:24 Dose: 2 mg Documented by: Ondansetron HCl (Ondansetron 4 Mg/2 Ml Sdv) 4 mg IVPUSH Q4H PRN PRN Reason: Nausea Oxycodone HCl (Oxycodone 5 Mg Tab) 5 mg PO Q4H PRN PRN Reason: Pain Discontinued Medications Lactated Ringer's (Ringers, Lactated) 1,000 mls @ 999 mls/hr IV .BOLUS ONE Stop: 10/06/20 10:33 Last Admin: 10/06/20 09:41 Dose: 999 mls/hr Documented by: Ampicillin Sodium 2 gm/ Sodium (Chloride) 100 mls @ 200 mls/hr IV ONETIME ONE Stop: 10/06/20 13:32 Last Admin: 10/06/20 13:38 Dose: Not Given Documented by: Gentamicin Sulfate 80 mg/ (Sodium Chloride) 52 mls @ 100 mls/hr IV ONETIME ONE Stop: 10/06/20 13:34 Last Admin: 10/06/20 13:44 Dose: 100 mls/hr Documented by: Ampicillin Sodium 2 gm/ Sodium (Chloride) 100 mls @ 200 mls/hr IV ONETIME ONE Stop: 10/06/20 13:59 Last Admin: 10/06/20 13:46 Dose: 200 mls/hr Documented by: Iopamidol (Iopamidol 755 Mg/Ml 500 Ml Multipack Bottle) 100 ml IVPUSH ONETIME STA Stop: 10/06/20 17:15 Last Admin: 10/06/20 17:14 Dose: 100 ml Documented by: Morphine Sulfate (Morphine 4 Mg/Ml Syringe) 4 mg IVPUSH ONETIME ONE Stop: 10/06/20 09:34 Last Admin: 10/06/20 09:41 Dose: 4 mg Documented by: Potassium Chloride (Potassium Chloride 10% 20 Meq/15 Ml Soln 30 Ml Ud Cup) 40 meq PO ONETIME ONE Stop: 10/06/20 13:02 Last Admin: 10/06/20 13:37 Dose: 40 meq Documented by: - Exam Quality Assessment: DVT Prophylaxis (SCDs). No: Supplemental Oxygen General: Alert, Oriented, Cooperative Lungs: Clear to Auscultation, Normal Respiratory Effort Cardiovascular: Regular Rate, Regular Rhythm GI/Abdominal Exam: Normal Bowel Sounds, Soft, Non-Tender Back Exam: Normal Inspection, Full Range of Motion Extremities: Normal Inspection, Normal Range of Motion, Non-Tender, No Pedal Edema Neurological: No New Focal Deficit Psy/Mental Status: Alert, Normal Affect, Normal Mood - Patient Data Lab Results Last 24 hrs: Laboratory Results - last 24 hr 10/06/20 10/06/20 10/06/20 Range/Units 09:40 09:40 09:41 WBC 6.57 (4.0-11.0) K/uL RBC 4.12 L (4.30-5.90) M/uL Hgb 11.2 L (12.0-16.0) g/dL Hct 34.4 L (36.0-46.0) % MCV 83.5 (80.0-98.0) fL MCH 27.2 (27.0-32.0) pg MCHC 32.6 (31.0-37.0) g/dL RDW Std Deviation 41.0 (28.0-62.0) fl RDW Coeff of Toby 14 (11.0-15.0) % Plt Count 268 (150-400) K/uL MPV 9.50 (7.40-12.00) fL Neut % (Auto) 59.0 (48.0-80.0) % Lymph % (Auto) 34.2 (16.0-40.0) % [place] % (Auto) 5.5 (0.0-15.0) % Eos % (Auto) 1.1 (0.0-7.0) % Baso % (Auto) 0.2 (0.0-1.5) % Neut # (Auto) 3.9 (1.4-5.7) K/uL Lymph # (Auto) 2.3 (0.6-2.4) K/uL [place] # (Auto) 0.4 (0.0-0.8) K/uL Eos # (Auto) 0.1 (0.0-0.7) K/uL Baso # (Auto) 0.0 (0.0-0.1) K/uL Nucleated RBC % 0.0 /100WBC Nucleated RBCs # 0 K/uL Sodium 139 (136-145) mmol/L Potassium 3.2 L (3.5-5.1) mmol/L Chloride 103 (98-107) mmol/L Carbon Dioxide 26.6 (21.0-32.0) mmol/L BUN 10 (7.0-18.0) mg/dL Creatinine 1.0 (0.6-1.0) mg/dL Est Cr Clr Drug Dosing 60.70 mL/min Estimated GFR (MDRD) > 60.0 ml/min Glucose 73 L (74-106) mg/dL Calcium 8.2 L (8.5-10.1) mg/dL Urine Color YELLOW Urine Appearance CLEAR Urine pH 6.0 (5.0-8.0) Ur Specific [place] >= 1.030 (1.001-1.035) Urine Protein NEGATIVE (NEGATIVE) mg/dL Urine Glucose (UA) NEGATIVE (NEGATIVE) mg/dL Urine Ketones NEGATIVE (NEGATIVE) mg/dL Urine Occult Blood MODERATE H (NEGATIVE) Urine Nitrite NEGATIVE (NEGATIVE) Urine Bilirubin NEGATIVE (NEGATIVE) Urine Urobilinogen 0.2 (<2.0) EU/dL Ur Leukocyte Esterase NEGATIVE (NEGATIVE) Urine RBC 1-2 (0-2/HPF) Urine WBC 0-1 (0-5/HPF) Ur Epithelial Cells FEW (NONE-FEW) Urine Bacteria FEW (NEGATIVE) Urine HCG, Qual (NEGATIVE) SARS-CoV-2 RNA (VALDO) (NEGATIVE) 10/06/20 10/06/20 10/07/20 Range/Units 09:41 14:22 05:27 WBC 4.69 (4.0-11.0) K/uL RBC 3.87 L (4.30-5.90) M/uL Hgb 10.5 L (12.0-16.0) g/dL Hct 32.2 L (36.0-46.0) % MCV 83.2 (80.0-98.0) fL MCH 27.1 (27.0-32.0) pg MCHC 32.6 (31.0-37.0) g/dL RDW Std Deviation 41.2 (28.0-62.0) fl RDW Coeff of Toby 14 (11.0-15.0) % Plt Count 245 (150-400) K/uL MPV 9.80 (7.40-12.00) fL Neut % (Auto) 51.5 (48.0-80.0) % Lymph % (Auto) 39.4 (16.0-40.0) % [place] % (Auto) 6.8 (0.0-15.0) % Eos % (Auto) 1.9 (0.0-7.0) % Baso % (Auto) 0.4 (0.0-1.5) % Neut # (Auto) 2.4 (1.4-5.7) K/uL Lymph # (Auto) 1.9 (0.6-2.4) K/uL [place] # (Auto) 0.3 (0.0-0.8) K/uL Eos # (Auto) 0.1 (0.0-0.7) K/uL Baso # (Auto) 0.0 (0.0-0.1) K/uL Nucleated RBC % 0.0 /100WBC Nucleated RBCs # 0 K/uL Sodium (136-145) mmol/L Potassium (3.5-5.1) mmol/L Chloride (98-107) mmol/L Carbon Dioxide (21.0-32.0) mmol/L BUN (7.0-18.0) mg/dL Creatinine (0.6-1.0) mg/dL Est Cr Clr Drug Dosing mL/min Estimated GFR (MDRD) ml/min Glucose (74-106) mg/dL Calcium (8.5-10.1) mg/dL Urine Color Urine Appearance Urine pH (5.0-8.0) Ur Specific [place] (1.001-1.035) Urine Protein (NEGATIVE) mg/dL Urine Glucose (UA) (NEGATIVE) mg/dL Urine Ketones (NEGATIVE) mg/dL Urine Occult Blood (NEGATIVE) Urine Nitrite (NEGATIVE) Urine Bilirubin (NEGATIVE) Urine Urobilinogen (<2.0) EU/dL Ur Leukocyte Esterase (NEGATIVE) Urine RBC (0-2/HPF) Urine WBC (0-5/HPF) Ur Epithelial Cells (NONE-FEW) Urine Bacteria (NEGATIVE) Urine HCG, Qual NEGATIVE (NEGATIVE) SARS-CoV-2 RNA (VALDO) NEGATIVE (NEGATIVE) 10/07/20 Range/Units 05:27 WBC (4.0-11.0) K/uL RBC (4.30-5.90) M/uL Hgb (12.0-16.0) g/dL Hct (36.0-46.0) % MCV (80.0-98.0) fL MCH (27.0-32.0) pg MCHC (31.0-37.0) g/dL RDW Std Deviation (28.0-62.0) fl RDW Coeff of Toby (11.0-15.0) % Plt Count (150-400) K/uL MPV (7.40-12.00) fL Neut % (Auto) (48.0-80.0) % Lymph % (Auto) (16.0-40.0) % [place] % (Auto) (0.0-15.0) % Eos % (Auto) (0.0-7.0) % Baso % (Auto) (0.0-1.5) % Neut # (Auto) (1.4-5.7) K/uL Lymph # (Auto) (0.6-2.4) K/uL [place] # (Auto) (0.0-0.8) K/uL Eos # (Auto) (0.0-0.7) K/uL Baso # (Auto) (0.0-0.1) K/uL Nucleated RBC % /100WBC Nucleated RBCs # K/uL Sodium 140 (136-145) mmol/L Potassium 3.7 (3.5-5.1) mmol/L Chloride 105 (98-107) mmol/L Carbon Dioxide 26.9 (21.0-32.0) mmol/L BUN 7 (7.0-18.0) mg/dL Creatinine 0.9 (0.6-1.0) mg/dL Est Cr Clr Drug Dosing 67.44 mL/min Estimated GFR (MDRD) > 60.0 ml/min Glucose 84 (74-106) mg/dL Calcium 7.9 L (8.5-10.1) mg/dL Urine Color Urine Appearance Urine pH (5.0-8.0) Ur Specific [place] (1.001-1.035) Urine Protein (NEGATIVE) mg/dL Urine Glucose (UA) (NEGATIVE) mg/dL Urine Ketones (NEGATIVE) mg/dL Urine Occult Blood (NEGATIVE) Urine Nitrite (NEGATIVE) Urine Bilirubin (NEGATIVE) Urine Urobilinogen (<2.0) EU/dL Ur Leukocyte Esterase (NEGATIVE) Urine RBC (0-2/HPF) Urine WBC (0-5/HPF) Ur Epithelial Cells (NONE-FEW) Urine Bacteria (NEGATIVE) Urine HCG, Qual (NEGATIVE) SARS-CoV-2 RNA (VALDO) (NEGATIVE) Result Diagrams: 10/07/20 05:27 10/07/20 05:27 Sepsis Event Note - Evaluation Sepsis Screening Result: No Definite Risk - Focused Exam Vital Signs: Vital Signs Temp Pulse Resp BP Pulse Ox 10/07/20 07:53 97.0 F 69 22 H 88/52 L 97 10/07/20 03:00 96.9 F 74 18 88/53 L 96 10/07/20 00:00 97 F 64 14 110/71 97 - Problem List & Annotations (1) Pyelonephritis SNOMED Code(s): 34989696 Code(s): N12 - TUBULO-INTERSTITIAL NEPHRITIS, NOT SPCF ACUTE OR CHRONIC Status: Acute Current Visit: Yes - Problem List Review Problem List Initiated/Reviewed/Updated: Yes - My Orders Last 24 Hours: My Active Orders 10/06/20 Lunch Regular Diet [DIET] 10/06/20 15:30 Pharmacy to Dose - Gentamicin 1 dose .XX ASDIRECTED 10/06/20 15:32 Intake and Output [RC] Q12H Oxygen Therapy [RC] PRN Up to Chair [RC] ASDIRECTED VTE/DVT Education [RC] PER UNIT ROUTINE Vital Signs [RC] Q4H Acetaminophen [TylenoL] 650 mg PO Q4H PRN Ondansetron [Zofran] 4 mg IVPUSH Q4H PRN Resuscitation Status Routine 10/06/20 15:45 Lactated Ringers [Ringers, Lactated] 1,000 ml IV Q8H 10/06/20 16:00 Enoxaparin [Lovenox] 40 mg SUBCUT Q24H Morphine 2 mg IVPUSH Q2H PRN Pantoprazole [ProTONIX IV] 40 mg Sodium Chloride 0.9% [Normal Saline] 10 ml IV Q24H oxyCODONE 5 mg PO Q4H PRN 10/06/20 19:30 Ampicillin 2 gm Sodium Chloride 0.9% [Normal Saline] 100 ml IV Q6H 10/06/20 22:00 Gentamicin 320 mg Sodium Chloride 0.9% [Normal Saline] 100 ml IV Q24H 10/08/20 05:11 BASIC METABOLIC PANEL,BMP [CHEM] AM CBC WITH AUTO DIFF [HEME] AM 10/09/20 05:11 BASIC METABOLIC PANEL,BMP [CHEM] AM CBC WITH AUTO DIFF [HEME] AM - Plan Plan:: This 25-year-old female admitted for acute pyelonephritis 1. Acute pyelonephritis, right kidney -Continue ampicillin 2 g IV every 6 hours -Continue gentamicin, pharmacy to dose, appreciate their assistance -Blood cultures and urine cultures pending -Morphine and oxycodone as needed pain -I's and O's -Zofran as needed nausea -Stop IV fluids -Regular diet as tolerated 2. Migraine -Give Toradol Reglan Benadryl cocktail assess migraine later this afternoon. VTE prophylaxis: Hold Lovenox, continue SCDs GI prophylaxis: Protonix CODE STATUS: Full code Dispo: 2 to 3 days pending improvement And culture results
[2020-10-07] MEDS ORDERED: Ketorolac 30 MG/ML SDV IVPUSH ONE (09:25)
[2020-10-07] MEDS ORDERED: Metoclopramide 10 MG/2 ML SDV IVPUSH ONE (09:25)
[2020-10-07] MEDS ORDERED: diphenhydrAMINE 50 MG/ML SDV IVPUSH ONE (09:25)
[2020-10-07] MEDS: Pantoprazole 40 MG in Sodium Chloride 0.9% 10 ML IV SCH (15:56)
[2020-10-08] MEDS: Ketorolac 15 MG/ML SDV IVPUSH PRN ×2 (00:20→22:15)
[2020-10-08] MEDS: Ampicillin 2 GM in Sodium Chloride 0.9% 100 ML IV SCH ×4 (03:20→19:56)
[2020-10-08 06:06] LABS: BLOOD UREA NITROGEN,BUN 11 mg/dL (7.0-18.0); CARBON DIOXIDE,CO2 26.2 mmol/L (21.0-32.0); CHLORIDE,CL 103 mmol/L (98-107); GLUCOSE RANDOM 75 mg/dL (74-106); POTASSIUM,K 3.7 mmol/L (3.5-5.1); SODIUM,NA 138 mmol/L (136-145)
--- NOTE | 2020-10-08 11:44 | PCM.PN ---
- General Info Date of Service: 10/08/20 Admission Dx/Problem (Free Text): Admission Diagnosis/Problem Admission Diagnosis/Problem Pyelonephritis Subjective Update: Continues to have mild right flank pain. Feels tired today. Denies any chest pain shortness of breath. No urinary symptoms. Eating and drinking appropriately Functional Status: Reports: Pain Controlled, Tolerating Diet, Ambulating, Urinating - Review of Systems General: Reports: Malaise HEENT: Reports: No Symptoms. Denies: Headaches, Sore Throat Pulmonary: Reports: No Symptoms. Denies: Shortness of Breath Cardiovascular: Reports: No Symptoms. Denies: Chest Pain Gastrointestinal: Reports: Abdominal Pain (Right side along with flank pain). Denies: Nausea, Vomiting Genitourinary: Reports: Flank Pain (Right side). Denies: Dysuria, Frequency Musculoskeletal: Reports: No Symptoms Skin: Reports: No Symptoms Neurological: Reports: No Symptoms Psychiatric: Reports: No Symptoms - Patient Data Vitals - Most Recent: Last Vital Signs Temp 97.3 F 10/08/20 11:00 Pulse 92 10/08/20 11:00 Resp 15 10/08/20 11:00 BP 98/66 10/08/20 11:00 Pulse Ox 98 10/08/20 11:00 Weight - Most Recent: 57.289 kg I&O - Last 24 Hours: Intake & Output 10/07/20 10/08/20 10/08/20 22:59 06:59 14:59 Intake Total 1710 Output Total 1200 Balance 510 Lab Results Last 24 Hours: Laboratory Results - last 24 hr 10/08/20 10/08/20 Range/Units 04:55 04:55 WBC 5.62 (4.0-11.0) K/uL RBC 4.02 L (4.30-5.90) M/uL Hgb 10.8 L (12.0-16.0) g/dL Hct 33.1 L (36.0-46.0) % MCV 82.3 (80.0-98.0) fL MCH 26.9 L (27.0-32.0) pg MCHC 32.6 (31.0-37.0) g/dL RDW Std Deviation 40.8 (28.0-62.0) fl RDW Coeff of Toby 13 (11.0-15.0) % Plt Count 247 (150-400) K/uL MPV 9.60 (7.40-12.00) fL Neut % (Auto) 67.2 (48.0-80.0) % Lymph % (Auto) 22.6 (16.0-40.0) % [place] % (Auto) 8.0 (0.0-15.0) % Eos % (Auto) 2.0 (0.0-7.0) % Baso % (Auto) 0.2 (0.0-1.5) % Neut # (Auto) 3.8 (1.4-5.7) K/uL Lymph # (Auto) 1.3 (0.6-2.4) K/uL [place] # (Auto) 0.5 (0.0-0.8) K/uL Eos # (Auto) 0.1 (0.0-0.7) K/uL Baso # (Auto) 0.0 (0.0-0.1) K/uL Nucleated RBC % 0.0 /100WBC Nucleated RBCs # 0 K/uL Sodium 138 (136-145) mmol/L Potassium 3.7 (3.5-5.1) mmol/L Chloride 103 (98-107) mmol/L Carbon Dioxide 26.2 (21.0-32.0) mmol/L BUN 11 (7.0-18.0) mg/dL Creatinine 0.8 (0.6-1.0) mg/dL Est Cr Clr Drug Dosing 75.87 mL/min Estimated GFR (MDRD) > 60.0 ml/min Glucose 75 (74-106) mg/dL Calcium 8.1 L (8.5-10.1) mg/dL Micheal Results Last 24 Hours: Microbiology 10/06/20 09:41 Urine Culture - Final Urine 10/06/20 13:23 Aerobic Blood Culture - Preliminary Blood - Venous - Lab Draw NO GROWTH AFTER 1 DAY Anaerobic Blood Culture - Preliminary NO GROWTH AFTER 1 DAY 10/06/20 13:17 Aerobic Blood Culture - Preliminary Blood - Venous NO GROWTH AFTER 1 DAY Anaerobic Blood Culture - Preliminary NO GROWTH AFTER 1 DAY Med Orders - Current: Current Medications Acetaminophen (Acetaminophen 325 Mg Tab) 650 mg PO Q4H PRN PRN Reason: Pain (Mild 1-3)/fever Gentamicin Sulfate (Pharmacy To Dose - Gentamicin) 1 dose .XX ASDIRECTED [facility] Ampicillin Sodium 2 gm/ Sodium (Chloride) 100 mls @ 200 mls/hr IV Q6H [facility] Last Infusion: 10/08/20 09:52 Dose: Infused Documented by: Gentamicin Sulfate 320 mg/ (Sodium Chloride) 108 mls @ 216 mls/hr IV Q24H [facility] Last Admin: 10/08/20 00:20 Dose: 216 mls/hr Documented by: Pantoprazole Sodium 40 mg/ (Sodium Chloride) 10 mls @ 300 mls/hr IV Q24H [facility] Last Admin: 10/07/20 15:56 Dose: 300 mls/hr Documented by: Ketorolac Tromethamine (Ketorolac 15 Mg/Ml Sdv) 15 mg IVPUSH Q6H PRN PRN Reason: Pain Last Admin: 10/08/20 00:20 Dose: 15 mg Documented by: Morphine Sulfate (Morphine 2 Mg/Ml Syringe) 2 mg IVPUSH Q2H PRN PRN Reason: Pain Last Admin: 10/07/20 02:24 Dose: 2 mg Documented by: Ondansetron HCl (Ondansetron 4 Mg/2 Ml Sdv) 4 mg IVPUSH Q4H PRN PRN Reason: Nausea Oxycodone HCl (Oxycodone 5 Mg Tab) 5 mg PO Q4H PRN PRN Reason: Pain Last Admin: 10/07/20 08:14 Dose: 5 mg Documented by: Discontinued Medications Diphenhydramine HCl (Diphenhydramine 50 Mg/Ml Sdv) 25 mg IVPUSH ONETIME ONE Stop: 10/07/20 09:26 Last Admin: 10/07/20 09:56 Dose: 25 mg Documented by: Enoxaparin Sodium (Enoxaparin 40 Mg/0.4 Ml Syringe) 40 mg SUBCUT Q24H [facility] Last Admin: 10/06/20 17:07 Dose: 40 mg Documented by: Lactated Ringer's (Ringers, Lactated) 1,000 mls @ 999 mls/hr IV .BOLUS ONE Stop: 10/06/20 10:33 Last Admin: 10/06/20 09:41 Dose: 999 mls/hr Documented by: Ampicillin Sodium 2 gm/ Sodium (Chloride) 100 mls @ 200 mls/hr IV ONETIME ONE Stop: 10/06/20 13:32 Last Admin: 10/06/20 13:38 Dose: Not Given Documented by: Gentamicin Sulfate 80 mg/ (Sodium Chloride) 52 mls @ 100 mls/hr IV ONETIME ONE Stop: 10/06/20 13:34 Last Admin: 10/06/20 13:44 Dose: 100 mls/hr Documented by: Ampicillin Sodium 2 gm/ Sodium (Chloride) 100 mls @ 200 mls/hr IV ONETIME ONE Stop: 10/06/20 13:59 Last Admin: 10/06/20 13:46 Dose: 200 mls/hr Documented by: Lactated Ringer's (Ringers, Lactated) 1,000 mls @ 125 mls/hr IV Q8H [facility] Last Admin: 10/07/20 18:31 Dose: Not Given Documented by: Iopamidol (Iopamidol 755 Mg/Ml 500 Ml Multipack Bottle) 100 ml IVPUSH ONETIME STA Stop: 10/06/20 17:15 Last Admin: 10/06/20 17:14 Dose: 100 ml Documented by: Ketorolac Tromethamine (Ketorolac 30 Mg/Ml Sdv) 30 mg IVPUSH ONETIME ONE Stop: 10/07/20 09:26 Last Admin: 10/07/20 09:55 Dose: 30 mg Documented by: Metoclopramide HCl (Metoclopramide 10 Mg/2 Ml Sdv) 10 mg IVPUSH ONETIME ONE Stop: 10/07/20 09:26 Last Admin: 10/07/20 09:56 Dose: 10 mg Documented by: Morphine Sulfate (Morphine 4 Mg/Ml Syringe) 4 mg IVPUSH ONETIME ONE Stop: 10/06/20 09:34 Last Admin: 10/06/20 09:41 Dose: 4 mg Documented by: Potassium Chloride (Potassium Chloride 10% 20 Meq/15 Ml Soln 30 Ml Ud Cup) 40 meq PO ONETIME ONE Stop: 10/06/20 13:02 Last Admin: 10/06/20 13:37 Dose: 40 meq Documented by: - Exam Quality Assessment: DVT Prophylaxis. No: Supplemental Oxygen General: Alert, Oriented, Cooperative Lungs: Clear to Auscultation, Normal Respiratory Effort Cardiovascular: Regular Rate, Regular Rhythm GI/Abdominal Exam: Normal Bowel Sounds, Soft, Tender (Mild right flank pain and right side pain) Back Exam: CVA Tenderness (R) Extremities: Normal Inspection, Normal Range of Motion, Non-Tender, No Pedal Edema Wound/Incisions: Healing Well Neurological: No New Focal Deficit Psy/Mental Status: Alert, Normal Affect, Normal Mood - Patient Data Lab Results Last 24 hrs: Laboratory Results - last 24 hr 10/08/20 10/08/20 Range/Units 04:55 04:55 WBC 5.62 (4.0-11.0) K/uL RBC 4.02 L (4.30-5.90) M/uL Hgb 10.8 L (12.0-16.0) g/dL Hct 33.1 L (36.0-46.0) % MCV 82.3 (80.0-98.0) fL MCH 26.9 L (27.0-32.0) pg MCHC 32.6 (31.0-37.0) g/dL RDW Std Deviation 40.8 (28.0-62.0) fl RDW Coeff of Toby 13 (11.0-15.0) % Plt Count 247 (150-400) K/uL MPV 9.60 (7.40-12.00) fL Neut % (Auto) 67.2 (48.0-80.0) % Lymph % (Auto) 22.6 (16.0-40.0) % [place] % (Auto) 8.0 (0.0-15.0) % Eos % (Auto) 2.0 (0.0-7.0) % Baso % (Auto) 0.2 (0.0-1.5) % Neut # (Auto) 3.8 (1.4-5.7) K/uL Lymph # (Auto) 1.3 (0.6-2.4) K/uL [place] # (Auto) 0.5 (0.0-0.8) K/uL Eos # (Auto) 0.1 (0.0-0.7) K/uL Baso # (Auto) 0.0 (0.0-0.1) K/uL Nucleated RBC % 0.0 /100WBC Nucleated RBCs # 0 K/uL Sodium 138 (136-145) mmol/L Potassium 3.7 (3.5-5.1) mmol/L Chloride 103 (98-107) mmol/L Carbon Dioxide 26.2 (21.0-32.0) mmol/L BUN 11 (7.0-18.0) mg/dL Creatinine 0.8 (0.6-1.0) mg/dL Est Cr Clr Drug Dosing 75.87 mL/min Estimated GFR (MDRD) > 60.0 ml/min Glucose 75 (74-106) mg/dL Calcium 8.1 L (8.5-10.1) mg/dL Result Diagrams: 10/08/20 04:55 10/08/20 04:55 Micheal Results Last 24 hrs: Microbiology 10/06/20 09:41 Urine Culture - Final Urine 10/06/20 13:23 Aerobic Blood Culture - Preliminary Blood - Venous - Lab Draw NO GROWTH AFTER 1 DAY Anaerobic Blood Culture - Preliminary NO GROWTH AFTER 1 DAY 10/06/20 13:17 Aerobic Blood Culture - Preliminary Blood - Venous NO GROWTH AFTER 1 DAY Anaerobic Blood Culture - Preliminary NO GROWTH AFTER 1 DAY Sepsis Event Note - Evaluation Sepsis Screening Result: No Definite Risk - Focused Exam Vital Signs: Vital Signs Temp Pulse Resp BP Pulse Ox 10/08/20 11:00 97.3 F 92 15 98/66 98 10/08/20 07:28 96.8 F L 84 16 94/65 96 10/08/20 03:00 97.5 F 82 13 93/55 L 97 - Problem List & Annotations (1) Pyelonephritis SNOMED Code(s): 95499925 Code(s): N12 - TUBULO-INTERSTITIAL NEPHRITIS, NOT SPCF ACUTE OR CHRONIC Status: Acute Current Visit: Yes - Problem List Review Problem List Initiated/Reviewed/Updated: Yes - My Orders Last 24 Hours: My Active Orders 10/07/20 13:07 Antiembolic Devices [RC] PER UNIT ROUTINE SCD [Sequential Compression Device] [OM.PC] Routine 10/07/20 15:46 Ketorolac [Toradol] 15 mg IVPUSH Q6H PRN 10/09/20 05:11 BASIC METABOLIC PANEL,BMP [CHEM] AM CBC WITH AUTO DIFF [HEME] AM - Plan Plan:: This 25-year-old female admitted for acute pyelonephritis 1. Acute pyelonephritis, right kidney -Continue ampicillin 2 g IV every 6 hours -Continue gentamicin, pharmacy to dose, appreciate their assistance -Blood cultures negative x1 day urine culture also returned no growth -Due to failed outpatient management and readmission we will keep patient today and give another dose of gentamicin this evening likely discharge home in the morning with Augmentin for total of 14 days therapy. -Arrange urology referral in [place] referral sent -Morphine and oxycodone as needed pain -I's and O's -Zofran as needed nausea -Stop IV fluids -Regular diet as tolerated 2. Migraine -Mildly improved today VTE prophylaxis:continue SCDs GI prophylaxis: Protonix CODE STATUS: Full code Dispo: 2 to 3 days pending improvement And culture results
[2020-10-08] MEDS: Morphine 2 MG/ML SYRINGE IVPUSH PRN ×2 (14:17→22:16)
[2020-10-08] MEDS: Pantoprazole 40 MG in Sodium Chloride 0.9% 10 ML IV SCH (15:27)
[2020-10-08] MEDS ORDERED: Lactated Ringers 1,000 ML IV ONE (16:04)
--- NOTE | 2020-10-08 21:00 | US ---
INDICATION: Pyelonephritis. TECHNIQUE: Bilateral renal and urinary bladder ultrasound. COMPARISON: Correlation is made with an abdominopelvic CT October 06, 2020. FINDINGS: There is no hydronephrosis of either kidney. The left kidney measures 12.3 x 4.3 x 4.4 cm. The right kidney measures 10.6 x 5.3 x 3.5 cm. Each renal cortex measures between 0.8 and 0.9 cm. There is adequate corticomedullary differentiation on the left. No left perinephric fluid. There is altered corticomedullary differentiation on the right suggesting some degree of pyelonephritis. There is some prominence of the right renal calices. No perinephric fluid collection. The urinary bladder is unremarkable. Both ureteral jets are observed. IMPRESSION: 1. No hydronephrosis, cystic or solid renal mass, stone, and the urinary bladder is unremarkable. 2. Altered or diminished corticomedullary differentiation on the right relative to the left in keeping with the reported pyelonephritis described on CT October 06, 2020. Dictated by Baltazar Pérez MD @ 10/08/2020 8:58:56 PM (Electronically Signed)
[2020-10-09] MEDS: Ampicillin 2 GM in Sodium Chloride 0.9% 100 ML IV SCH ×2 (02:18→08:04)
[2020-10-09] MEDS: Ketorolac 15 MG/ML SDV IVPUSH PRN (05:45)
[2020-10-09] MEDS: oxyCODONE 5 MG Tab PO PRN (05:46)
[2020-10-09 05:57] LABS: BLOOD UREA NITROGEN,BUN 10 mg/dL (7.0-18.0); CARBON DIOXIDE,CO2 26.8 mmol/L (21.0-32.0); CHLORIDE,CL 105 mmol/L (98-107); GLUCOSE RANDOM 82 mg/dL (74-106); POTASSIUM,K 3.8 mmol/L (3.5-5.1); SODIUM,NA 139 mmol/L (136-145)
--- NOTE | 2020-10-09 09:10 | PCM.DCSUM1 ---
Discharge Summary - Hospital Course Diagnosis: Stroke: No - Discharge Data Discharge Disposition: Home, Self-Care 01 Condition: Good - Referral to Home Health Primary Care Physician: Lissa Chaudhry MD - Patient Instructions Diet: Regular Diet as Tolerated Activity: As Tolerated, Rest and Relax Today Driving: Do Not Drive (no driving if taking narcotics) Showering/Bathing: May Shower Notify Provider of: Fever, Increased Pain, Swelling and Redness, Drainage, Nause a and/or Vomiting - Discharge Plan *PRESCRIPTION DRUG MONITORING PROGRAM REVIEWED*: Not Applicable *COPY OF PRESCRIPTION DRUG MONITORING REPORT IN PATIENT JHONY: Not Applicable Prescriptions/Med Rec: Amoxicillin/Clavulanate K [Augmentin 875-125 MG] 1 tab PO BID #22 tablet oxyCODONE 5 - 10 mg PO Q6H PRN #10 tablet PRN Reason: Pain Home Medications: Home Meds Ethinyl Estradiol/Drospirenone [Loryna 3 MG-0.02 MG] 1 tab PO DAILY 10/03/20 [History] Amoxicillin/Clavulanate K [Augmentin 875-125 MG] 1 tab PO BID #22 tablet 10/08/20 [Rx] oxyCODONE 5 - 10 mg PO Q6H PRN #10 tablet 10/08/20 [Rx] Oxygen Therapy Mode: Room Air Patient Handouts: Pyelonephritis, Adult, [id number] Referrals: Lissa Villavicencio MD [Primary Care Provider] - 10/23/20 9:00 am - Patient Data Vitals - Most Recent: Last Vital Signs Temp 37.3 C 10/09/20 05:19 Pulse 72 10/09/20 05:19 Resp 16 10/09/20 05:19 BP 113/66 10/09/20 05:19 Pulse Ox 98 10/09/20 05:19 Weight - Most Recent: 57.289 kg I&O - Last 24 hours: Intake & Output 10/08/20 10/09/20 10/09/20 22:59 06:59 14:59 Intake Total 600 750 Output Total 1000 Balance -400 750 Lab Results - Last 24 hrs: Laboratory Results - last 24 hr 10/09/20 10/09/20 Range/Units 05:00 05:00 WBC 4.82 (4.0-11.0) K/uL RBC 3.85 L (4.30-5.90) M/uL Hgb 10.5 L (12.0-16.0) g/dL Hct 31.8 L (36.0-46.0) % MCV 82.6 (80.0-98.0) fL MCH 27.3 (27.0-32.0) pg MCHC 33.0 (31.0-37.0) g/dL RDW Std Deviation 40.8 (28.0-62.0) fl RDW Coeff of Toby 13 (11.0-15.0) % Plt Count 239 (150-400) K/uL MPV 9.60 (7.40-12.00) fL Neut % (Auto) 56.1 (48.0-80.0) % Lymph % (Auto) 32.6 (16.0-40.0) % [place] % (Auto) 9.8 (0.0-15.0) % Eos % (Auto) 1.5 (0.0-7.0) % Baso % (Auto) 0.0 (0.0-1.5) % Neut # (Auto) 2.7 (1.4-5.7) K/uL Lymph # (Auto) 1.6 (0.6-2.4) K/uL [place] # (Auto) 0.5 (0.0-0.8) K/uL Eos # (Auto) 0.1 (0.0-0.7) K/uL Baso # (Auto) 0.0 (0.0-0.1) K/uL Nucleated RBC % 0.0 /100WBC Nucleated RBCs # 0 K/uL Sodium 139 (136-145) mmol/L Potassium 3.8 (3.5-5.1) mmol/L Chloride 105 (98-107) mmol/L Carbon Dioxide 26.8 (21.0-32.0) mmol/L BUN 10 (7.0-18.0) mg/dL Creatinine 1.0 (0.6-1.0) mg/dL Est Cr Clr Drug Dosing 60.70 mL/min Estimated GFR (MDRD) > 60.0 ml/min Glucose 82 (74-106) mg/dL Calcium 8.0 L (8.5-10.1) mg/dL JET Results - Last 24 hrs: Microbiology 10/06/20 13:23 Aerobic Blood Culture - Preliminary Blood - Venous - Lab Draw NO GROWTH AFTER 2 DAYS Anaerobic Blood Culture - Preliminary NO GROWTH AFTER 2 DAYS 10/06/20 13:17 Aerobic Blood Culture - Preliminary Blood - Venous NO GROWTH AFTER 2 DAYS Anaerobic Blood Culture - Preliminary NO GROWTH AFTER 2 DAYS 10/06/20 09:41 Urine Culture - Final Urine Med Orders - Current: Current Medications Acetaminophen (Acetaminophen 325 Mg Tab) 650 mg PO Q4H PRN PRN Reason: Pain (Mild 1-3)/fever Gentamicin Sulfate (Pharmacy To Dose - Gentamicin) 1 dose .XX ASDIRECTED [facility] Ampicillin Sodium 2 gm/ Sodium (Chloride) 100 mls @ 200 mls/hr IV Q6H [facility] Last Admin: 10/09/20 08:04 Dose: 200 mls/hr Documented by: Gentamicin Sulfate 320 mg/ (Sodium Chloride) 108 mls @ 216 mls/hr IV Q24H [facility] Last Admin: 10/08/20 22:14 Dose: 216 mls/hr Documented by: Pantoprazole Sodium 40 mg/ (Sodium Chloride) 10 mls @ 300 mls/hr IV Q24H [facility] Last Infusion: 10/08/20 15:29 Dose: Infused Documented by: Ketorolac Tromethamine (Ketorolac 15 Mg/Ml Sdv) 15 mg IVPUSH Q6H PRN PRN Reason: Pain Last Admin: 10/09/20 05:45 Dose: 15 mg Documented by: Morphine Sulfate (Morphine 2 Mg/Ml Syringe) 2 mg IVPUSH Q2H PRN PRN Reason: Pain Last Admin: 10/08/20 22:16 Dose: 2 mg Documented by: Ondansetron HCl (Ondansetron 4 Mg/2 Ml Sdv) 4 mg IVPUSH Q4H PRN PRN Reason: Nausea Oxycodone HCl (Oxycodone 5 Mg Tab) 5 mg PO Q4H PRN PRN Reason: Pain Last Admin: 10/09/20 05:46 Dose: 5 mg Documented by: Discontinued Medications Diphenhydramine HCl (Diphenhydramine 50 Mg/Ml Sdv) 25 mg IVPUSH ONETIME ONE Stop: 10/07/20 09:26 Last Admin: 10/07/20 09:56 Dose: 25 mg Documented by: Enoxaparin Sodium (Enoxaparin 40 Mg/0.4 Ml Syringe) 40 mg SUBCUT Q24H [facility] Last Admin: 10/06/20 17:07 Dose: 40 mg Documented by: Lactated Ringer's (Ringers, Lactated) 1,000 mls @ 999 mls/hr IV .BOLUS ONE Stop: 10/06/20 10:33 Last Admin: 10/06/20 09:41 Dose: 999 mls/hr Documented by: Ampicillin Sodium 2 gm/ Sodium (Chloride) 100 mls @ 200 mls/hr IV ONETIME ONE Stop: 10/06/20 13:32 Last Admin: 10/06/20 13:38 Dose: Not Given Documented by: Gentamicin Sulfate 80 mg/ (Sodium Chloride) 52 mls @ 100 mls/hr IV ONETIME ONE Stop: 10/06/20 13:34 Last Admin: 10/06/20 13:44 Dose: 100 mls/hr Documented by: Ampicillin Sodium 2 gm/ Sodium (Chloride) 100 mls @ 200 mls/hr IV ONETIME ONE Stop: 10/06/20 13:59 Last Admin: 10/06/20 13:46 Dose: 200 mls/hr Documented by: Lactated Ringer's (Ringers, Lactated) 1,000 mls @ 125 mls/hr IV Q8H [facility] Last Admin: 10/07/20 18:31 Dose: Not Given Documented by: Lactated Ringer's (Ringers, Lactated) 1,000 mls @ 999 mls/hr IV .BOLUS ONE Stop: 10/08/20 17:04 Last Admin: 10/08/20 16:49 Dose: 999 mls/hr Documented by: Iopamidol (Iopamidol 755 Mg/Ml 500 Ml Multipack Bottle) 100 ml IVPUSH ONETIME STA Stop: 10/06/20 17:15 Last Admin: 10/06/20 17:14 Dose: 100 ml Documented by: Ketorolac Tromethamine (Ketorolac 30 Mg/Ml Sdv) 30 mg IVPUSH ONETIME ONE Stop: 10/07/20 09:26 Last Admin: 10/07/20 09:55 Dose: 30 mg Documented by: Metoclopramide HCl (Metoclopramide 10 Mg/2 Ml Sdv) 10 mg IVPUSH ONETIME ONE Stop: 10/07/20 09:26 Last Admin: 10/07/20 09:56 Dose: 10 mg Documented by: Morphine Sulfate (Morphine 4 Mg/Ml Syringe) 4 mg IVPUSH ONETIME ONE Stop: 10/06/20 09:34 Last Admin: 10/06/20 09:41 Dose: 4 mg Documented by: Potassium Chloride (Potassium Chloride 10% 20 Meq/15 Ml Soln 30 Ml Ud Cup) 40 meq PO ONETIME ONE Stop: 10/06/20 13:02 Last Admin: 10/06/20 13:37 Dose: 40 meq Documented by:
[2020-10-09 10:14] VITALS: BP 101/72; PULSE 71
== END 2020-10-09 11:04 | disposition home or self-care (01) | DRG 463 ==
LOC: MW.ED 07:55 → MW.MS 15:26
PROVIDERS: ADMIT Student in an Organized Health Care Education/Training Program; ATTEND Student in an Organized Health Care Education/Training Program
DX: N10 Acute pyelonephritis (principal); K21.9 Gastro-esophageal reflux disease without esophagitis; G43.909 Migraine, unspecified, not intractable, without status migrainosus; E66.9 Obesity, unspecified; Z90.89 Acquired absence of other organs; Z86.19 Personal history of other infectious and parasitic diseases; Z20.822 Contact with and (suspected) exposure to COVID-19; Z68.25 Body mass index [BMI] 25.0-25.9, adult
CPT/HCPCS: 36415; 74177; 74177-26; 76775; 76775-26; 80048; 80170; 81001; 81025; 85025; 87040; 87086; 96374; 96375; 99284; 99285-25; A9270-GY; C9113; J0290; J1200; J1580; J1650; J1885; J2270; J2765; J7120; Q9967; U0002

== ENCOUNTER 2021-02-01 14:54 | Emergency (ER) | payer BC ==
--- NOTE | 2021-02-01 15:24 | PCM.EKG ---
#1 Interpretation EKG Date: 02/01/21 Time: 15:23 Rhythm: NSR Rate (Beats/Min): 82 ST-T: Normal
[2021-02-01] MEDS ORDERED: HYDROmorphone 1 MG/ML Syringe IVPUSH ONE (16:36)
[2021-02-01] MEDS ORDERED: Ampicillin/Sulbactam Na 3 GM in Sodium Chloride 0.9% 100 ML IV ONE (16:36)
[2021-02-01] MEDS ORDERED: Ondansetron 4 MG/2 ML SDV IVPUSH ONE (16:37)
[2021-02-01 17:05] LABS: BLOOD UREA NITROGEN,BUN 13 mg/dL (7.0-18.0); CHLORIDE,CL 102 mmol/L (98-107); GLUCOSE RANDOM 84 mg/dL (74-106); POTASSIUM,K 3.7 mmol/L (3.5-5.1); SODIUM,NA 139 mmol/L (136-145)
--- NOTE | 2021-02-01 19:19 | CR ---
Clinical INDICATION: Chest pain. Shortness of breath. FINDINGS: The cardiomediastinal silhouette, lung parenchyma, pulmonary vasculature and pleural surfaces are all normal in appearance. The bony thorax appears intact. IMPRESSION: Negative study. Dictated by Ziyad Porter MD @ 02/01/2021 7:18:01 PM (Electronically Signed)
--- NOTE | 2021-02-01 19:24 | EDM.PDOC ---
ED HPI GENERAL MEDICAL PROBLEM - General Chief Complaint: Chest Pain Stated Complaint: CHEST PAIN Time Seen by Provider: 02/01/21 16:16 Source of Information: Reports: Patient History Limitations: Reports: No Limitations - History of Present Illness INITIAL COMMENTS - FREE TEXT/NARRATIVE: HISTORY AND PHYSICAL: History of present illness: Patient is a 25-year-old female who presents emergency room today with concern of chest pain that has been constant x1 month and intermittent for several months. Patient states that she does have a history of a ventral septal defect and does have a teletypesetter monitor in [place] who states that he is not concerned about her VSD and she is upset about this. Patient states that she saw the provider a month ago and he was not concerned about her chest pain and feels that he did not fully listen to her. Patient states that the chest pain has been constant now for 1 month but has been coming and going for several months. Patient denies any associated symptoms or any worsening or alleviating factors. Patient denies fever, chills, shortness of breath, or cough. Denies headache, neck stiff ness, change in vision, syncope, or near syncope. Denies nausea, vomiting, abdominal pain, diarrhea, constipation, or dysuria. Has not noted any blood in urine or stool. Patient has been eating and drinking appropriately. Review of systems: As per history of present illness and below otherwise all systems reviewed and negative. Past medical history: As per history of present illness and as reviewed below otherwise noncontributory. Surgical history: As per history of present illness and as reviewed below otherwise noncontributory. Social history: See social history for further information Family history: As per history of present illness and as reviewed below otherwise noncontributory. Physical exam: General: Patient is alert, oriented, and in no acute distress. Patient sitting comfortably on exam table. Vitals stable and reviewed by me. HEENT: Atraumatic, normocephalic, pupils equal and reactive bilaterally, negative for conjunctival pallor or scleral icterus, mucous membranes moist, throat clear, neck supple, nontender, trachea midline. No drooling or trismus noted. No meningeal signs. No hot potato voice noted. Lungs: Clear to auscultation, breath sounds equal bilaterally, chest nontender. Heart: S1S2, regular rate and rhythm without overt murmur Abdomen: Soft, nondistended, nontender. Negative for masses or hepatosplenomegaly. Negative for costovertebral tenderness. Pelvis: Stable nontender. Genitourinary: Deferred. Rectal: Deferred. Skin: Intact, warm, dry. No lesions or rashes noted. Extremities: Atraumatic, negative for cords or calf pain. Neurovascular unremarkable. Neuro: Awake, alert, oriented. Cranial nerves II through XII unremarkable. Cerebellum unremarkable. Motor and sensory unremarkable throughout. Exam nonfocal. Medical Decision Making: Patient is a 25 year old female who presents emergency room today with concern of chest pain that has been constant x1 month and intermittent for several months. Upon arrival to the ED, patient is vitally stable and well-appearing on exam. Exam is otherwise unremarkable. Will obtain cardiac evaluation and reassess patient. See Dr. Patel's dictation for specific EKG interpretation. Otherwise, normal sinus rhythm without STEMI. Mild derangements of CBC and CMP are unremarkable. Troponin negative. hCG negative. Chest x-ray unremarkable. Upon reevaluation of patient, she remains vitally stable and comfortable throughout stay in ED. Heart score low risk. Discussed importance for follow- up with her teletypesetter monitor and primary care provider. Voices understanding and is agreeable to plan of care. Denies any further questions or concerns at this time. Diagnostics: EKG, CBC, CMP, Serum hcg, Trop, Ddimer Therapeutics: None Prescription: None Impression: Atypical chest pain Plan: 1. You can alternate ibuprofen and Tylenol as directed for pain and discomfort. 2. Follow-up with a primary care provider and teletypesetter monitor as discussed. Return to the ED as needed as discussed. Definitive disposition and diagnosis as appropriate pending reevaluation and review of above. Chest Pain Score (Numeric/FACES): 7 - Related Data Allergies Allergy/AdvReac Type Severity Reaction Status Date / Time No Known Allergies Allergy Verified 02/01/21 15:18 Home Meds: Home Meds Ethinyl Estradiol/Drospirenone [Loryna 3 MG-0.02 MG] 1 tab PO DAILY 10/03/20 [History] Amoxicillin/Clavulanate K [Augmentin 875-125 MG] 1 tab PO BID #22 tablet 10/08/20 [Rx] oxyCODONE 5 - 10 mg PO Q6H PRN #10 tablet 10/08/20 [Rx] Past Medical History - Past Health History Medical/Surgical History: Denies Medical/Surgical History HEENT History: Reports: None Cardiovascular History: Reports: None Respiratory History: Reports: None Gastrointestinal History: Reports: GERD, Other (See Below) Other Gastrointestinal History: acid reflux Genitourinary History: Reports: Pyelonephritis, Renal Calculus [employer]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: Musculoskeletal History: Reports: None Neurological History: Reports: Migraines Other Neuro History: Pt states hx migraines x1 year Psychiatric History: Reports: None Endocrine/Metabolic History: Reports: Obesity/BMI 30+ Hematologic History: Reports: None Immunologic History: Reports: None Oncologic (Cancer) History: Reports: None Dermatologic History: Reports: None - Infectious Disease History Infectious Disease History: Reports: Chicken Pox, Shingles - Past Surgical History HEENT Surgical History: Reports: Oral Surgery, Tonsillectomy Other HEENT Surgeries/Procedures: wisdom teeth extraction GI Surgical History: Reports: None Female Surgical History: Reports: Section Neurological Surgical History: Reports: None Social & Family History - Family History Family Medical History: No Pertinent Family History OBGYN: Reports: Neurological: Reports: CVA Oncologic: Reports: Ovarian - Caffeine Use Caffeine Use: Reports: None ED ROS GENERAL - Review of Systems Review Of Systems: Comprehensive ROS is negative, except as noted in HPI. ED EXAM, GENERAL - Physical Exam Exam: See Below (see dictation) Course - Vital Signs Last Recorded V/S: Last Vital Signs Temp 96.5 F L 02/01/21 15:18 Pulse 98 02/01/21 20:02 Resp 20 02/01/21 20:02 BP 117/80 02/01/21 20:02 Pulse Ox 98 02/01/21 20:02 - Orders/Labs/Meds Labs: Laboratory Tests 02/01/21 02/01/21 02/01/21 Range/Units 16:26 16:26 16:26 WBC 5.90 (4.0-11.0) K/uL RBC 4.37 (4.30-5.90) M/uL Hgb 11.5 L (12.0-16.0) g/dL Hct 35.5 L (36.0-46.0) % MCV 81.2 (80.0-98.0) fL MCH 26.3 L (27.0-32.0) pg MCHC 32.4 (31.0-37.0) g/dL RDW Std Deviation 39.2 (28.0-62.0) fl RDW Coeff of Toby 13 (11.0-15.0) % Plt Count 324 (150-400) K/uL MPV 9.30 (7.40-12.00) fL Neut % (Auto) 52.2 (48.0-80.0) % Lymph % (Auto) 41.4 H (16.0-40.0) % [place] % (Auto) 5.4 (0.0-15.0) % Eos % (Auto) 0.8 (0.0-7.0) % Baso % (Auto) 0.2 (0.0-1.5) % Neut # (Auto) 3.1 (1.4-5.7) K/uL Lymph # (Auto) 2.4 (0.6-2.4) K/uL [place] # (Auto) 0.3 (0.0-0.8) K/uL Eos # (Auto) 0.1 (0.0-0.7) K/uL Baso # (Auto) 0.0 (0.0-0.1) K/uL Nucleated RBC % 0.0 /100WBC Nucleated RBCs # 0 K/uL Sodium 139 (136-145) mmol/L Potassium 3.7 (3.5-5.1) mmol/L Chloride 102 (98-107) mmol/L Carbon Dioxide 25.0 (21.0-32.0) mmol/L BUN 13 (7.0-18.0) mg/dL Creatinine 0.8 (0.6-1.0) mg/dL Est Cr Clr Drug Dosing 75.87 mL/min Estimated GFR (MDRD) > 60.0 ml/min Glucose 84 (74-106) mg/dL Calcium 8.6 (8.5-10.1) mg/dL Total Bilirubin 0.2 (0.2-1.0) mg/dL AST 9 L (15-37) IU/L ALT 12 L (14-63) IU/L Alkaline Phosphatase 68 (46-116) U/L Troponin I < 0.050 (0.000-0.056) ng/mL Total Protein 7.6 (6.4-8.2) g/dL Albumin 3.2 L (3.4-5.0) g/dL Globulin 4.4 H (2.6-4.0) g/dL Albumin/Globulin Ratio 0.7 L (0.9-1.6) HCG, Qual NEGATIVE (NEG) Meds: Medications Discontinued Medications Generic Name Dose Route Start Last Admin Trade Name Quintinq PRN Reason Stop Dose Admin Hydromorphone HCl 1 mg 02/01/21 16:36 02/01/21 17:00 Hydromorphone 1 Mg/Ml Syringe IVPUSH 02/01/21 16:37 Not Given ONETIME ONE Ampicillin Sodium/Sulbactam 100 mls @ 200 mls/hr 02/01/21 16:36 02/01/21 17:00 Sodium 3 gm/ Sodium Chloride IV 02/01/21 17:05 Not Given ONETIME ONE Ondansetron HCl 4 mg 02/01/21 16:37 02/01/21 17:00 Ondansetron 4 Mg/2 Ml Sdv IVPUSH 02/01/21 16:38 Not Given ONETIME ONE Departure - Departure Time of Disposition: 19:23 Disposition: Home, Self-Care 01 Clinical Impression: Atypical chest pain - Discharge Information Instructions: Angina, [id number] Referrals: PCP,None [Primary Care Provider] - Forms: ED Department Discharge Additional Instructions: The following information is given to patients seen in the emergency department who are being discharged to home. This information is to outline your options for follow-up care. We provide all patients seen in our emergency department with a follow-up referral. The need for follow-up, as well as the timing and circumstances, are variable depending upon the specifics of your emergency department visit. If you don't have a primary care physician on staff, we will provide you with a referral. We always advise you to contact your personal physician following an emergency department visit to inform them of the circumstance of the visit and for follow-up with them and/or the need for any referrals to a consulting specialist. The emergency department will also refer you to a specialist when appropriate. This referral assures that you have the opportunity for follow-up care with a specialist. All of these measure are taken in an effort to provide you with optimal care, which includes your follow-up. Under all circumstances we always encourage you to contact your private physician who remains a resource for coordinating your care. When calling for follow-up care, please make the office aware that this follow-up is from your recent emergency room visit. If for any reason you are refused follow-up, please contact the [facility] Emergency Department at and asked to speak to the emergency department charge nurse. [facility] [address] [place] [address] [facility] [address] [place] [id number] 1. You can alternate ibuprofen and Tylenol as directed for pain and discomfort. 2. Follow-up with a primary care provider and teletypesetter monitor as discussed. Return to the ED as needed as discussed. Sepsis Event Note (ED) - Evaluation Sepsis Screening Result: No Definite Risk - Focused Exam Vital Signs: Vital Signs Temp Pulse Resp BP Pulse Ox 02/01/21 20:02 98 20 117/80 98 02/01/21 15:18 96.5 F L 82 16 109/72 99
[2021-02-01 20:03] VITALS: BP 117/80; PULSE 98
== END 2021-02-01 20:04 | disposition home or self-care (01) ==
LOC: MW.ED 14:54
DX: R07.89 Other chest pain (principal); E66.9 Obesity, unspecified; Z68.25 Body mass index [BMI] 25.0-25.9, adult
CPT/HCPCS: 36415; 71045; 71045-26; 80053; 84484; 84703; 85025; 93005; 99285-25